=== PATIENT | female | born 1980 | race Two or more races ===

== ENCOUNTER 2017-07-10 17:17 | Inpatient (IN) | payer MEDICAID, OTHER ==
[~2017-07-10] VITALS: Ht 165.1 cm; Wt 88.5 kg
--- NOTE | 2017-07-10 16:35 | NUR ---
PLACED PT ON MECHANICAL VENT IN ER PER MD ORDER. PT TRACH W/PORTEX #7. VENT ALARMS SET AND AUDIBLE. SUCTIONED THICK PINK, WITH RED SPECKS, MODERATE AMOUNT OF SECRETIONS. BREATH SOUNDS: BILATERAL COARSE. WILL CONTINUE TO MONITOR PT. Addendum: 07/10/17 at 1814 by DAX KELLEY RT TIME PT WAS PLACED ON MECHANICAL VENT: [phone].
--- NOTE | 2017-07-10 17:30 | NUR ---
BIB EMS for abnormal labs, elevated WBC and NA . PT ON MECH VENT . GTUBE PATENT . ZUÑIGA IN PLACED DRAINING WELL. PLACED ON MONITOR AWAITING MD ORDER
[2017-07-10 17:35] VITALS: BP 103/44
[2017-07-10] MEDS ORDERED: IV NS 0.9% 1,000 ML BAG IV ONE (18:00)
[2017-07-10 18:39] LABS: EOSINOPHILS % (AUTO) 0.1 % (0.0-6.0); HEMATOCRIT 23 % (33-45); HEMOGLOBIN 7.2 g/dL (11.5-14.8); LYMPHOCYTES # (AUTO) 0.9 /CMM (0.8-4.8); LYMPHOCYTES % (AUTO) 3.1 % (20.0-44.0); MEAN CORPUSCULAR HEMOGLOBIN 26 PG (26.0-33.0); MEAN CORPUSCULAR HGB CONC 32 g/dl (31.0-36.0); MEAN CORPUSCULAR VOLUME 80 fL (82-100); MONOCYTES # (AUTO) 0.8 /CMM (0.1-1.30); MONOCYTES % (AUTO) 2.9 % (2.0-12.0); NEUTROPHILS # (AUTO) 26.6 /CMM (1.8-8.9); NEUTROPHILS % (AUTO) 93.9 % (43.0-81.0); PLATELET COUNT (AUTO) 175 /CMM (150-450); WHITE BLOOD COUNT (AUTO) 28.3 K/uL (4.3-11.0)
--- NOTE | 2017-07-10 18:39 | NUR ---
BAR STAFF AT BEDSIDE
[2017-07-10] MEDS ORDERED: ACID1TAB12 GT (18:40)
[2017-07-10] MEDS ORDERED: ASCO500T9 GT (18:40)
[2017-07-10] MEDS ORDERED: NORM10004 IV (18:40)
[2017-07-10] MEDS ORDERED: ATRO2DRO4 BC (18:40)
[2017-07-10] MEDS ORDERED: MAGN400O6 GT (18:40)
[2017-07-10] MEDS ORDERED: IPRA3AMP IH (18:40)
[2017-07-10] MEDS ORDERED: NA P133E RC (18:40)
[2017-07-10] MEDS ORDERED: AMLO2.5T GT (18:40)
[2017-07-10] MEDS ORDERED: ACET-2605 GT (18:40)
[2017-07-10] MEDS ORDERED: GLYC1TAB5 GT (18:40)
[2017-07-10] MEDS ORDERED: ACET-868 GT (18:40)
[2017-07-10] MEDS ORDERED: FAMO20TA8 GT (18:40)
[2017-07-10] MEDS ORDERED: SODI1TAB3 GT (18:40)
[2017-07-10] MEDS ORDERED: CHLO473M5 MM (18:40)
[2017-07-10] MEDS ORDERED: MULT-24 GT (18:40)
[2017-07-10] MEDS ORDERED: AMIN30LI4 GT (18:40)
[2017-07-10] MEDS ORDERED: POLY15DR40 EACHEYE (18:40)
[2017-07-10] MEDS ORDERED: BISA10SU8 RC (18:40)
[2017-07-10] MEDS ORDERED: LACT-96 GT (18:40)
[2017-07-10] MEDS ORDERED: MORP10SO GT (18:40)
[2017-07-10] MEDS ORDERED: METO25TA20 GT (18:40)
[2017-07-10] MEDS ORDERED: WARF3TAB29 GT (18:40)
[2017-07-10] MEDS ORDERED: HYDR-552 GT (18:40)
--- NOTE | 2017-07-10 18:54 | NUR ---
CALLED NURSING SUP. FOR [facility] BED
[2017-07-10] MEDS ORDERED: VANCOMYCIN 1 GM in IV D5W 250 ML IV ONE (19:00)
[2017-07-10] MEDS ORDERED: PIPERACILLIN /TAZOBACTAM 3.375 G in IV D5W 50 ML IV ONE (19:00)
--- NOTE | 2017-07-10 19:12 | NUR ---
REPORT GIVEN TO FELIZ FOR CHRISSY
--- NOTE | 2017-07-10 19:16 | NUR ---
REPORT RECEIVED FROM ADILENE KHAN FOR CHRISSY.
[2017-07-10 19:32] LABS: INR 2.67 (0.87-1.13)
[2017-07-10 19:39] LABS: ALBUMIN 1.9 g/dL (3.4-5.0); BILIRUBIN,DIRECT 0.1 mg/dL (0.0-0.2); BILIRUBIN,TOTAL 0.3 mg/dL (0.2-1.0); CALCIUM, SERUM 8.5 mg/dL (8.5-10.1); CREATININE 0.3 mg/dL (0.6-1.3); POTASSIUM 4.6 mmol/L (3.5-5.1); TOTAL PROTEIN, SERUM 7.1 g/dL (6.4-8.2)
[2017-07-10 19:44] LABS: TROPONIN I 0.023 ng/mL (0.00-0.056)
--- NOTE | 2017-07-10 19:44 | NUR ---
KATEY WEISS APPLIED TO PATIENT.
--- NOTE | 2017-07-10 19:45 | NUR ---
SPOKE WITH MD REGARDING FLUID CHALLENGE FOR SEPSIS, DID NOT ORDER. NO NEW ORDERS RECEIVED.
--- NOTE | 2017-07-10 19:50 | NUR ---
PT TBA [facility] 118-2.
--- NOTE | 2017-07-10 19:56 | NUR ---
REPORT CALLED TO ADILENE MILTON IN [facility] FOR CHRISSY.
[2017-07-10] MEDS ORDERED: FIBERSOURCE HN 1,000 ML BOTTLE GT PRN ×2 (20:00→23:00)
--- NOTE | 2017-07-10 20:24 | NUR ---
PT TRANSPORTED TO [facility]2 VIA STRETCHER ON [facility]URCH HISTORY TEACHER WITH RT AND RN PER ACLS PROTOCOL. VSS.
[2017-07-10 20:25] LABS: BAND % (MANUAL) 8 % (0.0-5.0); LYMPHOCYTES % (MANUAL) 3 % (16-48); MONOCYTES % (MANUAL) 2 % (0-11.0); NEUTROPHILS % (MANUAL) 87 (42-76)
--- NOTE | 2017-07-10 20:25 | NUR ---
[facility] RN NOTES RECEIVED PTS AND REPORT FROM ER NURSE FELIZ, PTS IS 36 Y/O VENT TRACH WITH EYE OPEN NON VERBAL UNDER THE SERVICE OF DR ELAINE COLON WITH ADMITTING DX OF SEPSIS /PNA, PTS ON VENT SETTING OF RATE 18 TV IS 500 FI02 OF 40 % PEP OF 5, WELL TOLERATED BY PTS, SEEN BY DR HENRY AT BEDSIDE WITH ORDERS NOTED AND CARRIED OUT DUE MEDS GIVEN ORDERED INCLUDING ANTIBIOTIC, BODY CHECK DONE ,WITH IV KEPLOCK ON L HAND G#22 INTACT AND PATENT , PTS IS HARDSTICK NEED MIDLINE INSERTION.WILL ENDORSE TO RN DAY SHIFT FOR CONTINUITY OF CARE.GT FEEDING OF FIBERSOURCE AT 50CC/HR WELL TOLERATED BY PTS NO RESIDUAL NOTED ,KATEY WEISS APPLIED D/T TEMP IS 91 UPON ADMISSION , WILL CONTINUE TO MONITOR PTS.
[2017-07-10 20:30] VITALS: BP 107/62
[2017-07-10] MEDS ORDERED: ONDANSETRON HCL/PF 4 MG/2 ML VIAL IVP PRN (20:30)
[2017-07-10] MEDS ORDERED: Z GUARD REMEDY 2 OZ OINT TP PRN (20:30)
[2017-07-10] MEDS: IV NS 0.9% 1,000 ML IV PRN (23:19)
[2017-07-10] MEDS: VANCOMYCIN 1 GM in IV D5W 250 ML IV ONE (23:44)
[2017-07-10] MEDS: FIBERSOURCE HN 1,000 ML BOTTLE GT PRN (23:46)
[2017-07-11] VITALS (12 sets, daily range): BP systolic 89–110; BP diastolic 27–53
[2017-07-11] MEDS ORDERED: DEXT15DR6 EACHEYE (00:01)
[2017-07-11 00:38] LABS: APPEARANCE,URINE CLEAR (CLEAR); BILIRUBIN,URINE NEGATIVE (NEGATIVE); BLOOD, URINE 1+ Ery/uL (NEGATIVE); COLOR,URINE YELLOW (YELLOW); KETONES,URINE NEGATIVE (NEGATIVE); LEUKOCYTE ESTERASE ,URINE 3+ (NEGATIVE); NITRITE, URINE NEGATIVE (NEGATIVE); PROTEIN,URINE NEGATIVE (NEGATIVE); UGLUCOSE NEGATIVE (NEGATIVE); UROBILINOGEN,URINE 0.2 EU/dL (0.2)
[2017-07-11 00:44] LABS: RBC,URINE 0-2 /HPF (0-2)
[2017-07-11 00:45] LABS: BACTERIA,URINE Rare /HPF (None Seen); SQUAMOUS EPITHELIAL CELL,UR Few /HPF (None Seen)
[2017-07-11] MEDS ORDERED: PIPERACILLIN /TAZOBACTAM 2.25 G VIAL IV ONE ×2 (00:55→02:52)
[2017-07-11] MEDS ORDERED: VANCOMYCIN 1 GM VIAL ONE (00:56)
[2017-07-11] MEDS: VANCOMYCIN 1 GM in IV D5W 250 ML IV ONE (02:28)
[2017-07-11] MEDS: PIPERACILLIN /TAZOBACTAM 4.5 G in IV D5W 50 ML IV SCH ×5 (05:01→17:32)
--- NOTE | 2017-07-11 06:47 | NUR ---
[facility] RN NOTES PTS REMAINS ON VENT , NO SIGNIFICANT CHANGE NOTED , WILL ENDORSE TO RN DAY SHIFT FOR CONTINUITY OF CARE V/S STABLE AFEBRILE .
[2017-07-11 08:19] LABS: INR 2.74 (0.87-1.13)
[2017-07-11 08:22] LABS: EOSINOPHILS % (AUTO) 0.1 % (0.0-6.0); LYMPHOCYTES # (AUTO) 0.5 /CMM (0.8-4.8); LYMPHOCYTES % (AUTO) 3.4 % (20.0-44.0); MEAN CORPUSCULAR HEMOGLOBIN 26 PG (26.0-33.0); MEAN CORPUSCULAR HGB CONC 33 g/dl (31.0-36.0); MEAN CORPUSCULAR VOLUME 80 fL (82-100); MONOCYTES # (AUTO) 0.4 /CMM (0.1-1.30); MONOCYTES % (AUTO) 2.8 % (2.0-12.0); NEUTROPHILS # (AUTO) 14.2 /CMM (1.8-8.9); NEUTROPHILS % (AUTO) 93.7 % (43.0-81.0); PLATELET COUNT (AUTO) 142 /CMM (150-450); RDW COEFFICIENT OF VARIATION 17.9 (11.5-15.0); RED BLOOD CELL COUNT(AUTO) 2.37 MIL/uL (4.0-5.2); WHITE BLOOD COUNT (AUTO) 15.1 K/uL (4.3-11.0)
[2017-07-11 08:24] LABS: THYROID STIMULATING HORMONE 6.894 uIU/mL (0.358-3.74)
[2017-07-11 08:25] LABS: CALCIUM, SERUM 8.3 mg/dL (8.5-10.1); CREATININE 0.4 mg/dL (0.6-1.3); MAGNESIUM 1.5 mg/dL (1.8-2.4); PHOSPHORUS 4.3 mg/dL (2.5-4.9); POTASSIUM 4.6 mmol/L (3.5-5.1)
[2017-07-11 08:33] LABS: HEMATOCRIT 19 % (33-45); HEMOGLOBIN 6.2 g/dL (11.5-14.8)
[2017-07-11] MEDS ORDERED: FEE PK DOSING 1 MIN EA MC ONE (08:43)
[2017-07-11] MEDS: ACIDOPHILUS/BULGARICUS 1 EACH TAB.CHEW GT SCH (08:47)
[2017-07-11] MEDS: PANTOPRAZOLE 40 MG VIAL IV SCH (08:47)
[2017-07-11] MEDS ORDERED: ATROPINE SULFATE OPHTH SOLN 15 ML BOTTLE EACHEYE SCH (09:00)
[2017-07-11 09:47] LABS: BAND % (MANUAL) 6 % (0.0-5.0); EOSINOPHILS % (MANUAL) 2 % (0-4); LYMPHOCYTES % (MANUAL) 3 % (16-48); MONOCYTES % (MANUAL) 4 % (0-11.0); NEUTROPHILS % (MANUAL) 85 (42-76)
--- NOTE | 2017-07-11 10:00 | NUR ---
RN NOTE SPOKE WITH EVELIA EARL REGARDING THE LOW H/H, NO S/S OF BLEEDING AND GOT ORDER TO TRANSFUSE 1 UNIT OF BLOOD. WILL ORDER AND CARRY OUT, WILL MONITOR PT CLOSELY.
[2017-07-11] MEDS: Magnesium 1GM/D5W 100ML PREMIX 100 ML IV SCH ×2 (12:10→13:37)
[2017-07-11 14:48] LABS: CREATININE, URINE 43.7 MG/DL (30.0-125.0); URINE SODIUM, RANDOM < 5 mmol/l (40-220)
[2017-07-11] MEDS: VANCOMYCIN 1 GM in IV D5W 250 ML IV SCH (15:59)
[2017-07-11] MEDS: WARFARIN SODIUM 1 MG TABLET PO SCH (17:33)
--- NOTE | 2017-07-11 17:35 | NUR ---
RT NOTE: PATIENT RECEIVED TRACHED ON PB 840 VENT. SETTING PER MD ORDER. ALARMS VERIFIED AND AUDIBLE. SUCTIONED AND LAVAGED MODERATE-LARGE AMOUNT OF THICK WRIGHT SECRETIONS. VENT PLUGGED INTO RED OUTLET. AMBU BAG AT [facility].
--- NOTE | 2017-07-11 18:55 | NUR ---
RT NOTE PATIENT RECEIVED IN STABLE CONDITION ON MECHANICAL VENT. PATIENT IS TOLERATING CURRENT ORDERED VENT SETTINGS. NO SIGNS OF RESPIRATORY DISTRESS NOTED. TRACH TUBE IS PATENT AND SECURE. ALARMS ARE SET AND AUDIBLE. MECHANICAL VENT IS PLUGGED INTO RED OUTLET. AMBU BAG IS AT PATIENT BEDSIDE. Addendum: 07/11/17 at 2013 by DENISE KURTZ RT Amended: Links added.
--- NOTE | 2017-07-11 19:00 | NUR ---
RN NOTE PT HAD 1 UNIT RBCS TRANSFUSED, TOLERATED WELL, NO REACTION NOTED, PER MINING ENGINEER MADY IT IS OKAY TO GIVE DOSE OF COUMADIN IVEN WITH LOW H/H, PT AND INR TODAY MONITORED BEFORE THE 1700 DOSE OF COUMADIN. NO S/S OF BLEEDING NOTED.
[2017-07-11] MEDS: FIBERSOURCE HN 1,000 ML BOTTLE GT PRN (20:14)
[2017-07-11] MEDS: IV NS 0.9% 1,000 ML IV PRN (22:29)
[2017-07-12] VITALS: BP 105/51
[2017-07-12] MEDS: PIPERACILLIN /TAZOBACTAM 4.5 G in IV D5W 50 ML IV SCH ×5 (00:22→23:42)
[2017-07-12] MEDS: VANCOMYCIN 1 GM in IV D5W 250 ML IV SCH ×2 (03:16→14:14)
[2017-07-12 04:00] VITALS: BP 105/62
--- NOTE | 2017-07-12 06:50 | NUR ---
RN CLOSING NOTES, PATIENT IN BED OBTUNDED UNABLE TO LET NEEDS KNOW, ON VENT SETTINGS TOLERATED WELL, NO SOB/ACUTE DISTRESS NOTED, INGRID MIDLINE INTACT AND PATENT AND IVF RUNNING WELL AND TOLERATED WELL, PIV LINE IN RIGHT HAND INTACT AND PATENT, GTF RUINING WELL AND TOLERATED WELL, NO RESIDUAL AT THIS TIME, GENERAL EDEMATOUS, F/C DRAINING YELLOW URINE, PATENCY INTACT, NO HEMATURIA NOTED AT THIS TIME, BED LOCKED AND LOWETS POSITION, KEPT DRY AND REACH AND REPOSITION PROVIDED PER PROTOCOL, CALL LIGHT W/ REACH, WILL ENDORSE CONTINUITY OF CARE TO ONCOMING NURSE.
[2017-07-12 07:00] LABS: INR 2.2 (0.87-1.13)
[2017-07-12 07:26] LABS: CALCIUM, SERUM 8.4 mg/dL (8.5-10.1); CREATININE 0.5 mg/dL (0.6-1.3); POTASSIUM 4.1 mmol/L (3.5-5.1)
[2017-07-12 08:00] VITALS: BP 107/46
--- NOTE | 2017-07-12 08:00 | NUR ---
[facility] RN NOTES RESIDENT RECEIVED RESTING COMFORTABLY IN BED. PORTEX 7 TRACH TO VENT SETTING ORDERED, NO SIGNS AND SYMPTOMS OF RESPIRATORY DISTRESS, NON VERBAL, OPENS EYES. TELEMETRY READS ST HR 106, NO SIGNS OF PAIN OR DISCOMFORT, G TUBE FEEDING FIBERSOURCE AT 50 CC/HR ONGOING, TOLERATING WELL. 0 RESIDUAL, INGRID MIDLINE AND G22 LEFT HAND PERIPHERAL LINE RECEIVING INTERMITTENT ANTIBIOTICS AND 09.% NS AT 75CC/HR. BOTH SITES CLEAR, STILL FOR WOUND CONSULT. SKIN IS DRY, GENERALIZED EDEMA, BEDBOUND. CURRENTLY HAS BEAR HUGGER BLANKET ON SET AT LOW TEMPERATURE. HOB UP, SAFETY MEASURES IN PLACE, SR X 2 UP, CALL LIGHT WITHIN REACH. WILL CONTINUE TO MONITOR.
[2017-07-12] MEDS: ACIDOPHILUS/BULGARICUS 1 EACH TAB.CHEW GT SCH (08:05)
[2017-07-12] MEDS: PANTOPRAZOLE 40 MG VIAL IV SCH (08:05)
--- NOTE | 2017-07-12 09:30 | NUR ---
[facility] NOTES DUE MEDS GIVEN
--- NOTE | 2017-07-12 10:00 | NUR ---
[facility] NOTES REPORT GIVEN TO YANELI HEAD FOR CHRISSY.
[2017-07-12 10:33] LABS: EOSINOPHILS # (AUTO) 0.1 /CMM (0.0-0.7); EOSINOPHILS % (AUTO) 0.8 % (0.0-6.0); HEMATOCRIT 23 % (33-45); HEMOGLOBIN 7.4 g/dL (11.5-14.8); LYMPHOCYTES # (AUTO) 0.7 /CMM (0.8-4.8); LYMPHOCYTES % (AUTO) 4.4 % (20.0-44.0); MEAN CORPUSCULAR HEMOGLOBIN 27 PG (26.0-33.0); MEAN CORPUSCULAR HGB CONC 33 g/dl (31.0-36.0); MEAN CORPUSCULAR VOLUME 82 fL (82-100); MONOCYTES # (AUTO) 1.1 /CMM (0.1-1.30); MONOCYTES % (AUTO) 6.7 % (2.0-12.0); NEUTROPHILS % (AUTO) 88.1 % (43.0-81.0); PLATELET COUNT (AUTO) 117 /CMM (150-450); RDW COEFFICIENT OF VARIATION 17.6 (11.5-15.0); RED BLOOD CELL COUNT(AUTO) 2.75 MIL/uL (4.0-5.2); WHITE BLOOD COUNT (AUTO) 15.8 K/uL (4.3-11.0)
[2017-07-12 11:26] LABS: BAND % (MANUAL) 12 % (0.0-5.0); BASOPHILS % (MANUAL) 0 % (0.0-2.0); EOSINOPHILS % (MANUAL) 1 % (0-4); LYMPHOCYTES % (MANUAL) 6 % (16-48); MONOCYTES % (MANUAL) 9 % (0-11.0); NEUTROPHILS % (MANUAL) 22 (42-76)
[2017-07-12 12:00] VITALS: BP 115/47
--- NOTE | 2017-07-12 14:30 | NUR ---
[facility] RN NOTE CALLED PHARMACY UNABLE TO UNSCAN VANCO. TROUGH 23. VANCO NOT GIVEN.
[2017-07-12 16:00] VITALS: BP 134/51
[2017-07-12] MEDS: IV NS 0.9% 1,000 ML IV PRN (16:57)
[2017-07-12] MEDS: FIBERSOURCE HN 1,000 ML BOTTLE GT PRN (16:58)
[2017-07-12] MEDS: WARFARIN SODIUM 1 MG TABLET PO SCH (17:00)
--- NOTE | 2017-07-12 18:57 | NUR ---
RCVD PT ON VENT WITH NOTED SETTINGS. VENT PLUGGED INTO RED OUTLET, VENT ALARM WORKING AND AUDIBLE, AMBU BAG AT BEDSIDE. SUCTIONED MODERATE PALE YELLOW THICK SECRETIONS .WILL CONTINUE TO MONITOR THE PT.
[2017-07-12 20:00] VITALS: BP 114/55
--- NOTE | 2017-07-12 20:00 | NUR ---
[facility] RN NOTE PT IN BED OBTUNDED. ON VENT/TRACH TOLERATING THE SETTINGS WELL. NO DISTRESS OR DISCOMFORT NOTED. NO S/S OF PAIN NOTED. FAMILY AT BED SIDE. ON TELE SINUS TACH HR 109. F/C INTACT AND PATENT DRAINING YELLOWISH COLOR URINE. GTF FIBERSOURCE INFUSING AT 50 ML/HR, 0 ML RESIDUAL NOTED. IVF NS @ 75 ML/HR INFUSING WELL AT LT HAND #22 G, NO S/S OF INFILTRATION NOTED. KEPT HER DRY AND CLEAN. ALL NEEDS ATTENDED. REPOSITION HER FOR SKIN MANAGEMENT. SIDE RAILS UP X 3 AND CALL LIGHT WITHIN REACH. VSS. CONTINUE TO MONITOR HER.
--- NOTE | 2017-07-12 21:17 | NUR ---
EKG ORDER AT 2116 DONE IN ER, ADILENE SANTO NOTIFIED.
[2017-07-13] VITALS (11 sets, daily range): BP systolic 111–125; BP diastolic 56–71
--- NOTE | 2017-07-13 04:24 | NUR ---
[facility] RN NOTE SPUTUM SPECIMEN COLLECTED BY RT AND ALSO SPECIMEN COLLECTED FROM NASAL ASPIRATES BOTH SPECIMEN SENT TO LAB.
[2017-07-13] MEDS: PIPERACILLIN /TAZOBACTAM 4.5 G in IV D5W 50 ML IV SCH ×4 (05:35→23:50)
[2017-07-13 06:37] LABS: EOSINOPHILS % (AUTO) 0.3 % (0.0-6.0); HEMATOCRIT 21 % (33-45); LYMPHOCYTES # (AUTO) 0.9 /CMM (0.8-4.8); LYMPHOCYTES % (AUTO) 5.2 % (20.0-44.0); MEAN CORPUSCULAR HEMOGLOBIN 27 PG (26.0-33.0); MEAN CORPUSCULAR HGB CONC 33 g/dl (31.0-36.0); MEAN CORPUSCULAR VOLUME 83 fL (82-100); MONOCYTES # (AUTO) 1.1 /CMM (0.1-1.30); MONOCYTES % (AUTO) 6.9 % (2.0-12.0); NEUTROPHILS # (AUTO) 14.3 /CMM (1.8-8.9); NEUTROPHILS % (AUTO) 87.6 % (43.0-81.0); PLATELET COUNT (AUTO) 101 /CMM (150-450); RDW COEFFICIENT OF VARIATION 17.1 (11.5-15.0); RED BLOOD CELL COUNT(AUTO) 2.54 MIL/uL (4.0-5.2); WHITE BLOOD COUNT (AUTO) 16.3 K/uL (4.3-11.0)
--- NOTE | 2017-07-13 06:37 | NUR ---
[facility] RN NOTE PT IN BED OBTUNDED. TOLERATING VENT SETTING WELL, SUCTIONED HER FREQUENTLY THIN WHITE SECRETION NOTED. NO DISTRESS OR DISCOMFORT NOTED. NO S/S OF PAIN NOTED. ON TELE SINUS HR 92. REPOSITION HER Q2H, KEPT HER DRY AND CLEAN. GTF INFUSING WELL, 0 ML RESIDUAL NOTED. F/C INTACT AND PATENT DRAINING YELLOWISH COLOR URINE. IN ALL NEEDS ATTENDED. SIDE RAILS UP X 3 AND CALL LIGHT WITHIN REACH. WILL ENDORSE TO DAY SHIFT NURSE FOR CONTINUE TO CARE.
[2017-07-13 06:46] LABS: CALCIUM, SERUM 8.7 mg/dL (8.5-10.1); CREATININE 0.4 mg/dL (0.6-1.3)
--- NOTE | 2017-07-13 07:00 | NUR ---
[facility] RN NOTE LAB CALLED GAVE CRITICAL LAB VALUE HGB 6.9. ENDORSE TO NURSE EMMA TO FOLLOW UP WITH .
[2017-07-13 07:12] LABS: HEMOGLOBIN 6.9 g/dL (11.5-14.8)
--- NOTE | 2017-07-13 08:11 | NUR ---
[facility] RN NOTE PT IN BED ASLEEP, AROUSABLE. NO DISTRESS OR DISCOMFORT NOTED.NO S\S PAIN OR DISCOMFORT. ON TELE SR . REPOSITION HER Q2H, KEPT HER DRY AND CLEAN. GT INTACT AND PATENT INFUSING FEEDING WELL, KEEP HOB ELEVATED AT ALL TIME ,KEEP CLEAN DRY , ALL NEEDS ATTENDED. SIDE RAILS UP X 3 AND CALL LIGHT WITHIN REACH. WITH TRACH TO VENT SETTING ORDERED , AMBU BAG AT HOB AT ALL TIME ,WITH ZUÑIGA CATH TO GRAVITY WIT YELLOW COLOR URINE .LT HAND IV HEPLOCK INTACT ON IVF ORDERED ,ON [employer] MATRES ORDERED , BED IN WEST AND LOCKED POSITION , WILL CONT TO MONITOR CLOSELY
[2017-07-13] MEDS: IV NS 0.9% 1,000 ML IV PRN (08:58)
[2017-07-13] MEDS: PANTOPRAZOLE 40 MG VIAL IV SCH ×2 (08:59→16:15)
[2017-07-13] MEDS: ACIDOPHILUS/BULGARICUS 1 EACH TAB.CHEW GT SCH (08:59)
--- NOTE | 2017-07-13 09:13 | NUR ---
WOUND CARE CONSULT: PT PRESENTS WITH MULTIPLE WOUNDS, PRESENT ON ADMISSION INCLUDING FINGER WOUNDS. PT HAS HX OF RAYNAUDS PER CHART. RECOMMENDATIONS MADE FOR WOUND CARE AND SKIN PROTECTION AND DISCUSSED WITH NURSING STAFF AND N.P. PT ON FIRST STEP MATTRESS. 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 ALL SKIN PROTECTION MEASURES IN PLACE. PT IS IMMOBILE, VENT-DEPENDENT. MD IN AGREEMENT WITH PLAN OF CARE. Addendum: 07/13/17 at 0916 by DANDRE LE Amended: Links added. Addendum: 07/13/17 at 0918 by DANDRE LE SCARRING NOTED TO HEELS AND FEET WITH 2+ PITTING EDEMA.
[2017-07-13 09:45] LABS: INR 2.23 (0.87-1.13)
[2017-07-13] MEDS: LEVOTHYROXINE SODIUM 50 MCG TABLET PO SCH (10:41)
--- NOTE | 2017-07-13 11:02 | NUR ---
[facility] RN NOTE HG 6.9 SPOKE WITH NAE HEADNP STATED THAT WILL CHECK IT OUT
--- NOTE | 2017-07-13 12:43 | NUR ---
[facility] RN NOTE SPOKE WITH NAE RN TIE LAYER STATED THAT HG 6.6 WILL TRANSFUSE 1 UNIT PRBC .ALSO NOTIFIED THAT STOOL FOR OB COLLECTED AND STATED OK TO GIVE COUMADIN, AWARE THAT INR 2.23
--- NOTE | 2017-07-13 14:12 | NUR ---
POSTING MACHINE OPERATOR NOTE PER DR PINEDA OK TO TRANSFER TO TELE ALSO I UNIT PRBC START TO TRANSFUSED ,NO ADVERSE REACTION NOTED, WILL CONT TO MONITOR CLOSELY
[2017-07-13 14:36] LABS: BAND % (MANUAL) 12 % (0.0-5.0); EOSINOPHILS % (MANUAL) 2 % (0-4); LYMPHOCYTES % (MANUAL) 4 % (16-48); MONOCYTES % (MANUAL) 2 % (0-11.0); NEUTROPHILS % (MANUAL) 80 (42-76)
[2017-07-13 15:02] LABS: OCCULT BLOOD STOOL POSITIVE (NEGATIVE)
--- NOTE | 2017-07-13 15:57 | NUR ---
MEDICAL SOCIAL WORKER NOTE TELEPHONE CONSENT FOR EGD SPOKE WITH FATHER MAXIMO RAND Addendum: 07/13/17 at 1644 by EMMA VILLAR RN HOLD TO GIVE VANCO AT THIS TIME ,PATIENT ON BLOOD TRANSFUSION, WILL GIVE AFTER ITS COMPETED
[2017-07-13] MEDS: WARFARIN SODIUM 1 MG TABLET PO SCH (16:16)
[2017-07-13] MEDS: VANCOMYCIN 1 GM in IV D5W 250 ML IV SCH (16:59)
--- NOTE | 2017-07-13 17:07 | NUR ---
TOMB MAKER HELPER NOTE BLOOD TRANSFUSION COMPETED I UNIT PRBC, NO ADVERSE REACTION NOTED, WILL CONT TO MONITOR CLOSELY
--- NOTE | 2017-07-13 17:53 | NUR ---
RT END OF THE SHIFT REPORT, PT. 36 Y OLD FEMALE REMAIN STABLE SINCE REC. 0700 AM. TRACH'D PORTEX # 7 ON MECHANICAL VENT, WITH NOTED SETTINGS. EQUAL CHEST RISE NOTED, TRACH IN GOOD POSITION AND SECURE. HME CHANGED JIMENA VENT WELL T/O DAY B/S RALES BILATERALLY AND SUX'D FOR SMALL AMT OF SECRETIONS. VENT PLUGGED INTO RED OUTLET, AMBU BAG AT THE BEDSIDE. CONTINUE FOR CARE AND MONITORING, REPORT WILL PASS TO PM SHIFT. Addendum: 07/13/17 at 1755 by NICOLASA DESHPANDE RT Amended: Links added.
[2017-07-13] MEDS: FIBERSOURCE HN 1,000 ML BOTTLE GT PRN (18:44)
--- NOTE | 2017-07-13 20:00 | NUR ---
BRIDGES AND BUILDINGS SUPERVISOR NOTE PT IN BED OBTUNDED, EYES OPEN. ON VENT/TRACH TOLERATING THE SETTINGS WELL. NO DISTRESS OR DISCOMFORT NOTED. NO S/S OF PAIN NOTED. IVF NS @ 75 ML/HR INFUSING WELL, KEPT HOB ELEVATED. ON TELE SR HR 87, PT IS BED BOUND, REPOSITION HER FOR SKIN MANAGEMENT, GTF FIBERSOURCE INFUSING AT 50 ML/HR, 0 ML RESIDUAL NOTED. KEPT HER DRY AND CLEAN. ALL NEEDS ATTENDED. VSS. CONTINUE TO MONITOR HER.
--- NOTE | 2017-07-13 23:58 | NUR ---
SEWING MACHINE MECHANIC NOTE LONG BOURGEOIS VISITED THE PT, PT IS INFLUENZA + AND TO BE IN DROPLET ISOLATION. CHARGE NURSE INFORMED. PT IS TRANSFERED TO ROOM 109.
[2017-07-14] VITALS: BP 117/60
[2017-07-14] MEDS ORDERED: CEFEPIME 1 GM in IV NS 0.9% 50 ML IV SCH ×2
[2017-07-14 04:00] VITALS: BP 116/66
[2017-07-14] MEDS ORDERED: CEFEPIME 1 GM VIAL ONE (04:07)
[2017-07-14] MEDS: IV NS 0.9% 1,000 ML IV PRN (04:09)
[2017-07-14] MEDS: CEFEPIME 1 GM in IV NS 0.9% 50 ML IV SCH ×3 (04:35→21:37)
--- NOTE | 2017-07-14 04:54 | NUR ---
PRIMARY CLASS TEACHER NOTE BED BATH GIVEN. INCONTINENCE CARE GIVEN. ALSO WOUND TX GIVEN ORDERED. STOOL SPECIMEN #2 COLLECTED FOR C DIFF AND LAB INFORMED.
--- NOTE | 2017-07-14 06:52 | NUR ---
CUT OFF SAWYER NOTE PT IN BED OBTUNDED. NO CHANGE IN CONDITION. NO DISTRESS OR DISCOMFORT NOTED. NO S/S OF PAIN NOTED. TOLERATING VENT SETTINGS WELL. F/C INTACT AND PATENT DRAINING YELLOWISH COLOR URINE. IVF INFUSING WELL, NO S/S OF INFILTRAITON NOTED. ON TELE SR. REPOSITION HER Q2H, KEPT HER DRY AND CLEAN. ALL NEEDS ATTENDED. WILL ENDORSE TO DAY SHIFT NURSE FOR CONTINUE TO CARE.
--- NOTE | 2017-07-14 07:26 | NUR ---
RN NOTES RECEIVED PT FROM ROOF FIXER, VENT/TRACH DEPENDENT, OBTUNDED. TOLERATING VENT SETTINGS NO SOB OR DISTRESS. SR ON THE TELE [place] HR 80. ZUÑIGA DRAINING TO GRAVITY, YELLOW IN COLOR. GTF AT 50ML/HR. INGRID MIDLINE INTACT WITH IVF AT 74ML/HR. BED LOCKED AND IN LOWEST POSITION, CALL LIGHT WITHIN REACH, SIDE RAILS UPX3, WILL CONT TO [place].
[2017-07-14 07:38] LABS: EOSINOPHILS % (AUTO) 0.2 % (0.0-6.0); HEMATOCRIT 26 % (33-45); HEMOGLOBIN 8.6 g/dL (11.5-14.8); LYMPHOCYTES # (AUTO) 0.5 /CMM (0.8-4.8); MEAN CORPUSCULAR HEMOGLOBIN 28 PG (26.0-33.0); MEAN CORPUSCULAR HGB CONC 34 g/dl (31.0-36.0); MEAN CORPUSCULAR VOLUME 82 fL (82-100); MONOCYTES # (AUTO) 0.6 /CMM (0.1-1.30); MONOCYTES % (AUTO) 3.9 % (2.0-12.0); NEUTROPHILS # (AUTO) 14.5 /CMM (1.8-8.9); NEUTROPHILS % (AUTO) 92.9 % (43.0-81.0); PLATELET COUNT (AUTO) 102 /CMM (150-450); RDW COEFFICIENT OF VARIATION 16.5 (11.5-15.0); RED BLOOD CELL COUNT(AUTO) 3.12 MIL/uL (4.0-5.2); WHITE BLOOD COUNT (AUTO) 15.6 K/uL (4.3-11.0)
[2017-07-14 08:00] VITALS: BP_SYST 101; BP_SYST 99; BP_DIAS 52; BP_DIAS 60
[2017-07-14] MEDS: PANTOPRAZOLE 40 MG VIAL IV SCH ×2 (08:17→17:24)
[2017-07-14] MEDS: ACIDOPHILUS/BULGARICUS 1 EACH TAB.CHEW GT SCH (08:17)
[2017-07-14] MEDS: LEVOTHYROXINE SODIUM 50 MCG TABLET PO SCH (08:17)
[2017-07-14 08:37] LABS: ALBUMIN 1.7 g/dL (3.4-5.0); CALCIUM, SERUM 8.6 mg/dL (8.5-10.1); CREATININE 0.3 mg/dL (0.6-1.3); MAGNESIUM 1.8 mg/dL (1.8-2.4); PHOSPHORUS 4.5 mg/dL (2.5-4.9); POTASSIUM 3.9 mmol/L (3.5-5.1); TOTAL PROTEIN, SERUM 7.3 g/dL (6.4-8.2)
--- NOTE | 2017-07-14 11:00 | NUR ---
RN NOTES PT TEMP LOW, 94.1 RECTALLY, COOLER SUPERVISOR NAE NOTIFIED, WARMING BLANKET APPLIED.
[2017-07-14 12:00] VITALS: BP 100/53
[2017-07-14] MEDS: OSELTAMIVIR PHOSPHATE 75 MG CAPSULE PO SCH ×2 (12:47→17:24)
[2017-07-14 16:00] VITALS: BP 97/56
[2017-07-14] MEDS: VANCOMYCIN 1 GM in IV D5W 250 ML IV SCH (16:13)
--- NOTE | 2017-07-14 19:21 | NUR ---
PT RECEIVED TRACHED ON VENT WITH NOTED SETTINGS. VENT ALARMS ARE WORKING AND AUDIBLE , AMBU BAG AT BEDSIDE. TRACH IS SECURED AND POTATO SEED CUTTER DONE. VENT IS PLUGGED INTO RED OUTLET. SUCTIONED MODERATE YELLOW THICK SECRETIONS. NO RESPIRATORY DISTRESS NOTED AT THIS TIME, WILL CONTINUE TO MONITOR.
[2017-07-14 20:00] VITALS: BP 102/45
[2017-07-14] MEDS: HYDROCODONE/APAP 5/325MG 1 EACH TABLET PO PRN (23:03)
[2017-07-15] VITALS: BP_SYST 109; BP_SYST 99; BP_DIAS 39; BP_DIAS 47
[2017-07-15 04:00] VITALS: BP 94/46
[2017-07-15] MEDS: CEFEPIME 1 GM in IV NS 0.9% 50 ML IV SCH ×3 (05:35→21:51)
[2017-07-15 06:37] LABS: EOSINOPHILS % (AUTO) 0.1 % (0.0-6.0); HEMATOCRIT 24 % (33-45); HEMOGLOBIN 7.9 g/dL (11.5-14.8); LYMPHOCYTES # (AUTO) 0.9 /CMM (0.8-4.8); LYMPHOCYTES % (AUTO) 5.7 % (20.0-44.0); MEAN CORPUSCULAR HEMOGLOBIN 28 PG (26.0-33.0); MEAN CORPUSCULAR HGB CONC 34 g/dl (31.0-36.0); MEAN CORPUSCULAR VOLUME 82 fL (82-100); MONOCYTES # (AUTO) 1.1 /CMM (0.1-1.30); MONOCYTES % (AUTO) 7.3 % (2.0-12.0); NEUTROPHILS # (AUTO) 13.1 /CMM (1.8-8.9); NEUTROPHILS % (AUTO) 86.9 % (43.0-81.0); PLATELET COUNT (AUTO) 119 /CMM (150-450); RDW COEFFICIENT OF VARIATION 16.7 (11.5-15.0); RED BLOOD CELL COUNT(AUTO) 2.86 MIL/uL (4.0-5.2); WHITE BLOOD COUNT (AUTO) 15.1 K/uL (4.3-11.0)
[2017-07-15 06:45] LABS: INR 2.53 (0.87-1.13)
[2017-07-15 07:14] LABS: CALCIUM, SERUM 8.4 mg/dL (8.5-10.1); CREATININE 0.5 mg/dL (0.6-1.3); POTASSIUM 4.3 mmol/L (3.5-5.1)
--- NOTE | 2017-07-15 07:59 | NUR ---
Lizbet pt received on mechanical vent. Pt trach is secure. Vent is plugged into a red outlet, alarms are set and audible, and BVM is at bedside. Addendum: 07/15/17 at 0954 by JALEN TAI RT Amended: Links added.
[2017-07-15 08:00] VITALS: BP 100/43
[2017-07-15] MEDS: PANTOPRAZOLE 40 MG VIAL IV SCH ×2 (09:28→15:57)
[2017-07-15 12:00] VITALS: BP 104/44
[2017-07-15] MEDS: OSELTAMIVIR PHOSPHATE 75 MG CAPSULE PO SCH ×2 (13:11→15:57)
[2017-07-15] MEDS: LEVOTHYROXINE SODIUM 50 MCG TABLET PO SCH (13:11)
[2017-07-15] MEDS: FIBERSOURCE HN 1,000 ML BOTTLE GT PRN (13:11)
[2017-07-15] MEDS: ACIDOPHILUS/BULGARICUS 1 EACH TAB.CHEW GT SCH (13:11)
[2017-07-15] MEDS: VANCOMYCIN 1 GM in IV D5W 250 ML IV SCH (15:56)
[2017-07-15 16:00] VITALS: BP 104/49
[2017-07-15] MEDS: HYDROCODONE/APAP 5/325MG 1 EACH TABLET PO PRN (16:02)
[2017-07-15 20:00] VITALS: BP 101/42
[2017-07-16] VITALS (7 sets, daily range): BP systolic 109–124; BP diastolic 47–78
--- NOTE | 2017-07-16 03:49 | NUR ---
RT Pt trach remains on [facility] vent on ordered settings. sx prn. no resp distress noted. Addendum: 07/16/17 at 0350 by EDWAR BELTRAN RT Amended: Links added.
[2017-07-16] MEDS: CEFEPIME 1 GM in IV NS 0.9% 50 ML IV SCH ×3 (05:43→23:18)
[2017-07-16 06:30] LABS: CALCIUM, SERUM 8.8 mg/dL (8.5-10.1); CREATININE 0.6 mg/dL (0.6-1.3); POTASSIUM 4.2 mmol/L (3.5-5.1)
[2017-07-16 06:31] LABS: EOSINOPHILS % (AUTO) 0.1 % (0.0-6.0); HEMATOCRIT 24 % (33-45); HEMOGLOBIN 8.1 g/dL (11.5-14.8); LYMPHOCYTES # (AUTO) 0.9 /CMM (0.8-4.8); LYMPHOCYTES % (AUTO) 5.8 % (20.0-44.0); MEAN CORPUSCULAR HEMOGLOBIN 28 PG (26.0-33.0); MEAN CORPUSCULAR HGB CONC 34 g/dl (31.0-36.0); MEAN CORPUSCULAR VOLUME 83 fL (82-100); MONOCYTES # (AUTO) 1.3 /CMM (0.1-1.30); MONOCYTES % (AUTO) 8.4 % (2.0-12.0); NEUTROPHILS # (AUTO) 13.7 /CMM (1.8-8.9); NEUTROPHILS % (AUTO) 85.7 % (43.0-81.0); PLATELET COUNT (AUTO) 149 /CMM (150-450); RDW COEFFICIENT OF VARIATION 16.8 (11.5-15.0)
--- NOTE | 2017-07-16 07:09 | NUR ---
RN NOTE PT REMAINS IN NO ACUTE DISTRESS IN BED. PT DID NOT HAVE ANY SIGNIFICANT CHANGE IN CONDITION DURING SHIFT. PT TOLERATED VENT SETTING WELL. ALL NEEDS MET, ALL ORDERS CARRIED OUT. WILL ENDORSE CARE TO AM RN FOR CONTINUITY OF CARE.
--- NOTE | 2017-07-16 07:30 | NUR ---
RN NOTES RECEIVED PATIENT IN BED, [facility] WITH BREATHING REGULAR, EVEN AND UNLABORED. NO SOB NOTED. NO ACUTE DISTRESS NOTED. AFEBRILE. TELE MONITOR REVEALS ST, FX=375. IV INGRDI MIDLINE IS PATENT AND INTACT. ON GT FEED FIBERSOURCE @50CC/HR. TOLERATES WELL, NO RESIDUAL NOTED. POSITIVE PLACEMENT. HOB ELEVATED. F/C IS PATENT AND INTACT, DRAINING WITH GRAVITY. KEPT CLEAN, DRY AND COMFORTABLE. ALL NEEDS ATTENDED. SAFETY MEASURE OBSERVED. CALL LIGHT WITH IN REACH. WILL CONT TO MONITOR.
[2017-07-16] MEDS: OSELTAMIVIR PHOSPHATE 75 MG CAPSULE PO SCH ×2 (08:34→17:38)
[2017-07-16] MEDS: ACIDOPHILUS/BULGARICUS 1 EACH TAB.CHEW GT SCH (08:34)
[2017-07-16] MEDS: PANTOPRAZOLE 40 MG VIAL IV SCH ×2 (08:34→17:38)
[2017-07-16] MEDS: LEVOTHYROXINE SODIUM 50 MCG TABLET PO SCH (08:34)
[2017-07-16] MEDS: VANCOMYCIN 1 GM in IV D5W 250 ML IV SCH (16:00)
--- NOTE | 2017-07-16 19:29 | NUR ---
RN NOTES PATIENT ENDORSED TO NEXT SHIFT IN STABLE CONDITION FOR CONTINUITY OF CARE. NO SIGNIFICANT CHANGES NOTED. WILL CONT TO MONITOR.
[2017-07-17] VITALS: BP 113/56
[2017-07-17 04:00] VITALS: BP 112/60
[2017-07-17] MEDS: CEFEPIME 1 GM in IV NS 0.9% 50 ML IV SCH ×3 (05:28→20:23)
--- NOTE | 2017-07-17 06:24 | NUR ---
RN NOTE PT REMAINS IN NO ACUTE DISTRESS IN BED. PT DID NOT HAVE ANY SIGNIFICANT CHANGE IN CONDITION DURING SHIFT. ALL NEEDS MET, ALL ORDERS CARRIED OUT. WILL ENDORSE CARE TO AM RN FOR CONTINUITY OF CARE.
[2017-07-17 06:26] LABS: EOSINOPHILS % (AUTO) 0.1 % (0.0-6.0); HEMATOCRIT 24 % (33-45); HEMOGLOBIN 8.1 g/dL (11.5-14.8); LYMPHOCYTES # (AUTO) 0.9 /CMM (0.8-4.8); LYMPHOCYTES % (AUTO) 4.4 % (20.0-44.0); MEAN CORPUSCULAR HEMOGLOBIN 28 PG (26.0-33.0); MEAN CORPUSCULAR HGB CONC 34 g/dl (31.0-36.0); MEAN CORPUSCULAR VOLUME 83 fL (82-100); MONOCYTES % (AUTO) 4.9 % (2.0-12.0); NEUTROPHILS # (AUTO) 19.2 /CMM (1.8-8.9); NEUTROPHILS % (AUTO) 90.6 % (43.0-81.0); PLATELET COUNT (AUTO) 198 /CMM (150-450); RDW COEFFICIENT OF VARIATION 17.4 (11.5-15.0); WHITE BLOOD COUNT (AUTO) 21.1 K/uL (4.3-11.0)
[2017-07-17 06:41] LABS: CALCIUM, SERUM 8.7 mg/dL (8.5-10.1); CREATININE 0.6 mg/dL (0.6-1.3)
--- NOTE | 2017-07-17 07:20 | NUR ---
RT PATIENT REC'D TRACHED ON [facility] VENT WITH SETTINGS SET BY MD JIMENA BYRD. VENT ALARMS CHECKED + AUDIBLE. B/S DIM COARSE. SX'D WITH SMALL AMT PALE SEMITHICK SECRETIONS. AMBU BAG AT HOB Addendum: 07/17/17 at 1629 by SERAFIN HUBBARD RT Amended: Links added.
--- NOTE | 2017-07-17 07:30 | NUR ---
RECEIVED PT. IN BED. NO C/O PAIN,NO S/S OF DISTRESS BREATHING EVEN AND UNLABORED.WILL CONTINUE TO MONITOR FOR CHANGES.SAFETY MEASURES IN PLACE. I.V CDI AND PATENT.
[2017-07-17 08:00] VITALS: BP 112/61
[2017-07-17] MEDS: LEVOTHYROXINE SODIUM 50 MCG TABLET PO SCH (09:16)
[2017-07-17] MEDS: ACIDOPHILUS/BULGARICUS 1 EACH TAB.CHEW GT SCH (09:16)
[2017-07-17] MEDS: OSELTAMIVIR PHOSPHATE 75 MG CAPSULE PO SCH ×2 (09:16→16:19)
[2017-07-17] MEDS: PANTOPRAZOLE 40 MG VIAL IV SCH ×2 (09:17→16:19)
[2017-07-17 12:00] VITALS: BP 112/61
--- NOTE | 2017-07-17 15:35 | NUR ---
[facility].All M.D orders noted and carried out.V.S IN STABLE CONDITION.REPORT GIVEN TO GAL AT REHAB.ALL BELONGINGS GIVEN TO PATIENT.
--- NOTE | 2017-07-17 15:54 | NUR ---
Assumed care of pt. Pt in bed, appears calm and comfortable. On ventilator with AC 18, TV 500 FIO2 40% PEEP 5. Midline cath on INGRID tko infusing. PEG tube in place Fibersource at 50cc/hr, tolerating. generalized edema 2-3+. diaz in place with yellow urine. bed low and locked. call light within reached. will continue to monitor.
[2017-07-17 16:00] VITALS: BP 102/60
[2017-07-17] MEDS: VANCOMYCIN 1 GM in IV D5W 250 ML IV SCH (16:14)
--- NOTE | 2017-07-17 19:30 | NUR ---
RN NOTE RECEIVED PT IN BED, OBTUNDED, CONTINUES TO BE ON VENTILATOR, TOLERATING WELL WITH O2 SAT @100%, UNDER TELE MONITORING WITH SINUS TACHY @ 112 BPM. IN NO ACUTE DISTRESS, COMFORTABLE AT THIS TIME, NOTED WITH NO FACIAL GRIMACING. PLACED CALL LIGHT WITHIN EASY REACH. PLACED BED IN LOW POSITION AND LOCKED IN PLACE. WILL CONTINUE TO MONITOR PT.
[2017-07-17 20:00] VITALS: BP 114/55
[2017-07-17] MEDS: CADEXOMER IODINE 40 GM TUBE TP PRN (20:27)
[2017-07-17] MEDS: HYDROGEL DRESSING 90 GM TUBE TP PRN (20:27)
[2017-07-17] MEDS: FIBERSOURCE HN 1,000 ML BOTTLE GT PRN (20:42)
[2017-07-18] VITALS: BP 123/64
[2017-07-18 04:00] VITALS: BP 107/53
[2017-07-18] MEDS: CEFEPIME 1 GM in IV NS 0.9% 50 ML IV SCH ×3 (04:03→21:11)
--- NOTE | 2017-07-18 06:29 | NUR ---
RN CLOSING NOTE PATIENT IN BED, ASLEEP, COMFORTABLE, NO SIGNS AND SYMPTOMS OF ACUTE DISTRESS, ON VENT WITH GOOD TOLERANCE. PATIENT ON TELE MONITORING SINUS TACHYCARDIA @ 116 BPM. ALL PATIENT'S NEEDS ANTICIPATED AND ATTENDED TO THROUGHOUT THE SHIFT, TURNED AND REPOSITIONED Q2 HOURS, CALL LIGHT PLACED WITHIN EASY REACH, PLACED BED IN LOW POSITION AND LOCKED IN PLACE. WILL ENDORSE TO AM SHIFT NURSE FOR CONTINUITY OF CARE.
[2017-07-18 06:34] LABS: INR 2.42 (0.87-1.13)
[2017-07-18 06:35] LABS: EOSINOPHILS % (AUTO) 0.3 % (0.0-6.0); HEMATOCRIT 22 % (33-45); HEMOGLOBIN 7.5 g/dL (11.5-14.8); LYMPHOCYTES % (AUTO) 5.8 % (20.0-44.0); MEAN CORPUSCULAR HEMOGLOBIN 28 PG (26.0-33.0); MEAN CORPUSCULAR HGB CONC 34 g/dl (31.0-36.0); MEAN CORPUSCULAR VOLUME 83 fL (82-100); MONOCYTES # (AUTO) 1.1 /CMM (0.1-1.30); MONOCYTES % (AUTO) 6.8 % (2.0-12.0); NEUTROPHILS # (AUTO) 14.3 /CMM (1.8-8.9); NEUTROPHILS % (AUTO) 87.1 % (43.0-81.0); PLATELET COUNT (AUTO) 256 /CMM (150-450); RDW COEFFICIENT OF VARIATION 17.2 (11.5-15.0); RED BLOOD CELL COUNT(AUTO) 2.68 MIL/uL (4.0-5.2); WHITE BLOOD COUNT (AUTO) 16.4 K/uL (4.3-11.0)
[2017-07-18 06:44] LABS: CALCIUM, SERUM 8.6 mg/dL (8.5-10.1); CREATININE 0.6 mg/dL (0.6-1.3); POTASSIUM 4.1 mmol/L (3.5-5.1)
--- NOTE | 2017-07-18 07:55 | NUR ---
FARM HAND NOTE PATIENT IN BED AWAKE , COMFORTABLE, NO SIGNS AND SYMPTOMS OF ACUTE DISTRESS, WITH TRACH , ON VENT SETTING WITH GOOD TOLERANCE. AMBU BAG AT HOB PATIENT ON TELE MONITORING SINUS TACHYCARDIA @ 102 BPM. ALL PATIENT'S NEEDS ANTICIPATED AND ATTENDED TURNED AND REPOSITIONED CALL LIGHT PLACED WITHIN EASY REACH, PLACED BED IN LOW POSITION AND LOCKED IN PLACE. WILL CONT TO MONITOR CLOSELY, WITH ZUÑIGA CATH TO GRAVITY WITH YELLOW COLOR URINE , ON G TUBE FEEDING ORDERED KEEP, HOB ELEVATED AT ALL TIME, LT UPPER ARM MID LINE IN PLACE, NO S\S INFECTION NOTED , WILL MONITOR CLOSELY
[2017-07-18 08:00] VITALS: BP 113/56
[2017-07-18] MEDS: PANTOPRAZOLE 40 MG VIAL IV SCH ×2 (09:05→16:11)
[2017-07-18] MEDS: ACIDOPHILUS/BULGARICUS 1 EACH TAB.CHEW GT SCH (09:06)
[2017-07-18] MEDS: LEVOTHYROXINE SODIUM 50 MCG TABLET PO SCH (09:06)
[2017-07-18] MEDS: OSELTAMIVIR PHOSPHATE 75 MG CAPSULE PO SCH ×2 (09:06→16:11)
--- NOTE | 2017-07-18 11:23 | NUR ---
SLOPE TENDER NOTE SPOKE WITH DR MATT NOTIFIED THAT HG 7.5 NO NEW ORDER GIVEN AT THIS TIME
[2017-07-18 12:00] VITALS: BP 121/63
--- NOTE | 2017-07-18 14:00 | NUR ---
ELEMENTARY ELL TEACHER NOTE NAE RN INSURANCE MARKETING SPECIALIST AT BEDSIDE, AWARE PAPI HG TODAY 7.5 NO BLOOD TRANSFUSION ORDERED ,WILL F\U
[2017-07-18] MEDS: VANCOMYCIN 1 GM in IV D5W 250 ML IV SCH (14:05)
[2017-07-18 16:00] VITALS: BP 122/62
--- NOTE | 2017-07-18 18:27 | NUR ---
TECHNOLOGY COACH NOTE ALL NEEDS ATTENDED, NOT IN ACUTE DISTRESS HR 115 Addendum: 07/18/17 at 1907 by EMMA VILLAR RN CONT WITH TRACH TO VENT SETTING ,TRACH SUCTION DONE KEEP CLEAN DRY , WITH G TUBE FEEDING TOLERATED WELL, KEEP HOB ELEVATED AT ALL TIME
--- NOTE | 2017-07-18 19:50 | NUR ---
COMPUTER DRAFTER NOTES, RECEIVED PATIENT IN BED OBTUNDED, UNABLE TO LET NEEDS KNOWN, ON VENT SETTINGS,TOLERATED WELL, NO SOB/ACUTE DISTRESS NOTED AT THIS TIME, ST IN THE TELE MONITOR, GTF INFUSING WELL AND PATIENT TOLERATED WELL, NO RESIDUAL AT THIS TIME, HOB ELEVATED AT ALL TIMES FOR ASPIRATION PRECAUTIONS, SUCTIONING PROVIDED NEEDED FOR REMOVAL OF SECRETIONS, INGRID MIDLINE INTACT AND PATENT, FC DRAINING YELLOW URINE BY GRAVITY,PATENCY INTACT, NOTED DRY AND CLEAN AT THIS TIME, BED LOCKED AND IN LOWEST POSITION, CALL LIGHT W/I REACH, WILL CONTINUE TO MONITOR CLOSELY.
[2017-07-18 20:00] VITALS: BP 120/58
[2017-07-18] MEDS: FIBERSOURCE HN 1,000 ML BOTTLE GT PRN (21:20)
[2017-07-19] VITALS (12 sets, daily range): BP systolic 82–133; BP diastolic 42–64
[2017-07-19] MEDS: CEFEPIME 1 GM in IV NS 0.9% 50 ML IV SCH ×3 (04:57→20:06)
--- NOTE | 2017-07-19 06:40 | NUR ---
RN CLOSING NOTES, PATIENT IN BED, AWAKE ALERT AND ORIENTED, NO S/S OF ANY DISCOMFORT AT THIS TIME, ENDORSE CARE TO ONCOMING SHIFT.
[2017-07-19 06:46] LABS: EOSINOPHILS % (AUTO) 0.3 % (0.0-6.0); HEMATOCRIT 22 % (33-45); HEMOGLOBIN 7.2 g/dL (11.5-14.8); LYMPHOCYTES # (AUTO) 1.1 /CMM (0.8-4.8); LYMPHOCYTES % (AUTO) 8.5 % (20.0-44.0); MEAN CORPUSCULAR HEMOGLOBIN 28 PG (26.0-33.0); MEAN CORPUSCULAR HGB CONC 33 g/dl (31.0-36.0); MEAN CORPUSCULAR VOLUME 84 fL (82-100); MONOCYTES # (AUTO) 1.1 /CMM (0.1-1.30); MONOCYTES % (AUTO) 8.5 % (2.0-12.0); NEUTROPHILS # (AUTO) 10.8 /CMM (1.8-8.9); NEUTROPHILS % (AUTO) 82.7 % (43.0-81.0); PLATELET COUNT (AUTO) 295 /CMM (150-450); RDW COEFFICIENT OF VARIATION 17.8 (11.5-15.0); RED BLOOD CELL COUNT(AUTO) 2.63 MIL/uL (4.0-5.2); WHITE BLOOD COUNT (AUTO) 13.1 K/uL (4.3-11.0)
[2017-07-19 06:48] LABS: CALCIUM, SERUM 8.6 mg/dL (8.5-10.1); CREATININE 0.6 mg/dL (0.6-1.3); POTASSIUM 3.8 mmol/L (3.5-5.1)
[2017-07-19] MEDS: OSELTAMIVIR PHOSPHATE 75 MG CAPSULE PO SCH (09:00)
[2017-07-19] MEDS: PANTOPRAZOLE 40 MG VIAL IV SCH ×2 (10:14→18:02)
[2017-07-19] MEDS: ACIDOPHILUS/BULGARICUS 1 EACH TAB.CHEW GT SCH (10:14)
[2017-07-19] MEDS: LEVOTHYROXINE SODIUM 50 MCG TABLET PO SCH (10:14)
--- NOTE | 2017-07-19 12:03 | NUR ---
RT RECD PT TRACH ON ORDERED VENT SETTING JIMENA WELL. TRACH INTACT AND SECURED. VENT PLUGGED IN RED OUTLET. ALARMS ON AND AUDIBLE. TX GIVEN JIMENA WELL NO ADVERSE REACTION NOTED ATT. SX THICK YELLOW MODERATE SECRETIONS. NO RESP DISTRESS ATT WILL CONTINUE TO MONITOR
[2017-07-19 13:36] LABS: BAND % (MANUAL) 3 % (0.0-5.0); LYMPHOCYTES % (MANUAL) 4 % (16-48); MONOCYTES % (MANUAL) 2 % (0-11.0); NEUTROPHILS % (MANUAL) 91 (42-76)
[2017-07-19 17:42] LABS: INR 2.3 (0.87-1.13)
[2017-07-19] MEDS: WARFARIN SODIUM 1 MG TABLET GT SCH (18:14)
--- NOTE | 2017-07-19 20:30 | NUR ---
FACTORY PROCESS WORKERS NOTES, BLOOD INFUSION IN PROCESS AT THIS TIME, NO S/S OF ANY ADVERSE REACTION NOTED, PATIENT IN VENT SETTINGS, NO ACUTE DISTRESS/SOB NOTED AT THIS TIME, WILL CONTINUE TO MONITOR CLOSELY.
[2017-07-19] MEDS: ACETAMINOPHEN 325 MG TABLET PO PRN (20:52)
--- NOTE | 2017-07-19 22:20 | NUR ---
SASH ASSEMBLER NOTES, CONTINUE BLOOD TRANSFUSION AT THIS TIME, CHECKED VS AND NOITED BLOOD PRESSURE OF 82/42 INFORM LORNA FIERRO, AWAITING FOR NEW ORDERS.
--- NOTE | 2017-07-19 22:30 | NUR ---
FAMILY PRESERVATION CASEWORKER NOTES, RECEIVED REPLY FROM LORNA FIERRO NP TO CONTINUE MONITOR PATIENT AND INFORM HER IS THE SYSTOLIC BLOOD PRESSURE IS SUSTAINED IN THE 80S, WILL CONTINUE TO MONITOR CLOSELY.
[2017-07-20] VITALS: BP_SYST 114; BP_SYST 96; BP_DIAS 58; BP_DIAS 62
--- NOTE | 2017-07-20 00:15 | NUR ---
FREELANCE COURT REPORTER NOTES, TRANSFUSION DONE AT THIS TIME, PATIENT REMAINED STABLE NO ADVERSE SIDE EFFECTS NOTED, WILL CONTINUE TO MONITOR CLOSELY.
[2017-07-20 04:00] VITALS: BP 118/57
[2017-07-20] MEDS: FIBERSOURCE HN 1,000 ML BOTTLE GT PRN (04:42)
[2017-07-20] MEDS: CEFEPIME 1 GM in IV NS 0.9% 50 ML IV SCH ×3 (04:42→20:56)
--- NOTE | 2017-07-20 06:10 | NUR ---
MEDIA ANALYST CLOSING NOTES, PATIENT IN BED, IN VENT SETTINGS, TOLERATED WELL, NO SOB/ACUTE DISTRESS NOTED AT THIS TIME, INGRID MIDLINE INTACT AND PATENT, F/ DRAINING YELLOW URINE BY GRAVITY, DRY AND CLEAN, REPOSITION PROVIDED PER PROTOCOL, SUCTIONING PROVIDED NEEDED FOR REMOVAL OF SECRETIONS, ALL NEEDS ATTENDED, BED LOCKED AND IN LOWEST POSITION, CALL LIGHT W/I REACH, WILL ENDORSE CONTINUITY OF CARE TO ONCOMING NURSE.
[2017-07-20 06:43] LABS: BASOPHILS % (AUTO) 0.1 % (0.0-2.0); CALCIUM, SERUM 8.5 mg/dL (8.5-10.1); CREATININE 0.6 mg/dL (0.6-1.3); EOSINOPHILS % (AUTO) 0.2 % (0.0-6.0); HEMATOCRIT 25 % (33-45); HEMOGLOBIN 8.1 g/dL (11.5-14.8); LYMPHOCYTES % (AUTO) 5.4 % (20.0-44.0); MEAN CORPUSCULAR HEMOGLOBIN 28 PG (26.0-33.0); MEAN CORPUSCULAR HGB CONC 33 g/dl (31.0-36.0); MEAN CORPUSCULAR VOLUME 85 fL (82-100); MONOCYTES # (AUTO) 1.1 /CMM (0.1-1.30); MONOCYTES % (AUTO) 6.2 % (2.0-12.0); NEUTROPHILS # (AUTO) 16.3 /CMM (1.8-8.9); NEUTROPHILS % (AUTO) 88.1 % (43.0-81.0); PLATELET COUNT (AUTO) 366 /CMM (150-450); RED BLOOD CELL COUNT(AUTO) 2.89 MIL/uL (4.0-5.2); WHITE BLOOD COUNT (AUTO) 18.5 K/uL (4.3-11.0)
[2017-07-20 08:00] VITALS: BP 123/64
--- NOTE | 2017-07-20 08:00 | NUR ---
SMALL EQUIPMENT OPERATOR NOTE PATIENT IN IN BED BOTH EYESOPEN , UNABLE TO FOLLOW ANY COMMAND , WITH TRACH TO VENT SETTING ORDERED AMBU BAG AT HOB AT ALL TIME, WITH F, ON TELE MONITOR SR HR 118 NAE RN BLENDING PLANT OPERATOR AWARE ZUÑIGA CATH TO GRAVITY WITH YELLOW COLOR URINE , ON G TUBE FEEDING ORDERED , KEEP HOB ELEVATED AT ALL TIME , NO RESIDUAL NOTED, LT UPPER ARM MID LININ PLACE NO S\S INFECTION NOTED, WILL CONT TO MONITOR CLOSELY
[2017-07-20 08:07] LABS: INR 2.49 (0.85-1.15)
[2017-07-20] MEDS: ACETAMINOPHEN 325 MG TABLET PO PRN (09:30)
[2017-07-20] MEDS: PANTOPRAZOLE 40 MG VIAL IV SCH ×2 (09:30→16:21)
[2017-07-20] MEDS: ACIDOPHILUS/BULGARICUS 1 EACH TAB.CHEW GT SCH (09:30)
[2017-07-20] MEDS: LEVOTHYROXINE SODIUM 50 MCG TABLET PO SCH (09:31)
[2017-07-20 12:00] VITALS: BP 103/50
--- NOTE | 2017-07-20 12:00 | NUR ---
SALES TRAINEE NOTE SEEN BY RT BANUELOS SUCTION DONE .KEEP CLEAN DRY
[2017-07-20] MEDS: HYDROCODONE/APAP 5/325MG 1 EACH TABLET GT PRN ×2 (13:47→19:55)
--- NOTE | 2017-07-20 15:00 | NUR ---
EXCHANGE ADMINISTRATOR NOTE PER NAE RN QUALITY ASSURANCE PRACTICE MANAGER OK TO DISCHARGE TO [facility]. WILL GIVE REPORT LATTER ON
[2017-07-20 16:00] VITALS: BP 114/69
--- NOTE | 2017-07-20 16:00 | NUR ---
VICTIM WITNESS ADMINISTRATOR NOTE ABDOMINAL US DONE ORDERED ,KEEP CLEAN DRY
[2017-07-20] MEDS: WARFARIN SODIUM 1 MG TABLET GT SCH (16:23)
[2017-07-20 16:59] LABS: ALBUMIN 1.8 g/dL (3.4-5.0); BILIRUBIN,DIRECT 0.1 mg/dL (0.0-0.2); BILIRUBIN,TOTAL 0.8 mg/dL (0.2-1.0); TOTAL PROTEIN, SERUM 7.8 g/dL (6.4-8.2)
--- NOTE | 2017-07-20 17:48 | NUR ---
TURBINE TECHNICIAN NOTE UNABLE TO PET WALKER REPORT TO [facility], STATED THAT PATIENT IS NOT EXCEPTING AT THIS TIME , CALLED [facility] SCHEDULER WILL F\U ,CHARGE NURSE AWARE
--- NOTE | 2017-07-20 18:46 | NUR ---
tle rn note unable to give e report again to [facility] , spoke with [facility] and dania chirinos stated that not excepting and refusing to take patient today , rn case manager radha and ilan subramanian , will transfer tomorrow
--- NOTE | 2017-07-20 18:57 | NUR ---
HAND DRAWER IN NOTE CALLED TO FATHER VERONICA MARSH NOTIFIED THAT PATIENT DISCHARGED FROM HOSPITAL BUT FACILITY CANT EXCEPT HER , MOST LIKELY WILL BE TRANSFER TOMORROW
[2017-07-20 20:00] VITALS: BP 112/63
[2017-07-21] VITALS: BP 108/66
[2017-07-21] MEDS: HYDROCODONE/APAP 5/325MG 1 EACH TABLET GT PRN ×3 (00:33→09:11)
[2017-07-21 04:00] VITALS: BP 113/53
[2017-07-21] MEDS: CEFEPIME 1 GM in IV NS 0.9% 50 ML IV SCH ×2 (04:29→12:28)
[2017-07-21] MEDS: FIBERSOURCE HN 1,000 ML BOTTLE GT PRN (04:44)
[2017-07-21 06:29] LABS: INR 2.68 (0.87-1.13)
[2017-07-21 06:43] LABS: CALCIUM, SERUM 8.9 mg/dL (8.5-10.1); CREATININE 0.6 mg/dL (0.6-1.3)
--- NOTE | 2017-07-21 07:10 | NUR ---
RN INITIAL NOTES: REC'D PT ON BED, NOT IN ANY DISTRESS, OBTUNDED. ON MV VIA TRACH, SATING AT 100%. ON TELEMONITOR, SR/ST. SMALL INGRID MIDLINE, SL, PATENT & INTACT W/ NO S/SX OF INFECTION/INFILTRATION NOTED. HAS GT, ON CONTINUOUS TUBE FEEDING OF FIBERSOURCE X 50 CC/HR INFUSING WELL, NO RESIDUAL NOTED UPON CHECKING. HAS FC PATENT & INTACT DRAINING TO ADEQUATE URINE OUTPUT. PROVIDED COMFORT & SAFETY MEASURES. BED KEPT LOW & IN LOCKED POS. CALL LIGHT PLACED W/IN REACH. WILL CONTINUE TO MONITOR & ATTEND PT NEEDS.
[2017-07-21 08:00] VITALS: BP 113/62
[2017-07-21] MEDS: ACIDOPHILUS/BULGARICUS 1 EACH TAB.CHEW GT SCH (08:21)
[2017-07-21] MEDS: LEVOTHYROXINE SODIUM 50 MCG TABLET PO SCH (08:21)
[2017-07-21] MEDS: PANTOPRAZOLE 40 MG VIAL IV SCH (08:21)
[2017-07-21] MEDS: HYDROGEL DRESSING 90 GM TUBE TP PRN (08:25)
[2017-07-21] MEDS: CADEXOMER IODINE 40 GM TUBE TP PRN (08:26)
[2017-07-21 12:00] VITALS: BP 114/65
--- NOTE | 2017-07-21 12:50 | NUR ---
COREMAKING MACHINE SETTER NOTES: PT DC'D TO [facility] ORDERED. REPORT GIVEN TO ADILENE CASTELLON. TRACH AND GT KEPT PATENT & INTACT. INGRID BOSWELL, SL, KEPT PATENT & INTACT W/ NO S/SX OF INFECTION/INFILTRATION. WOUND CARE DONE. DC DOCUMENTS PROVIDED TO THE EMT & RT. PT LEFT FACILITY IN STABLE CONDITION VIA GURNEY. ALL BELONGINGS SENT W/ PT. NO CONCERNS IDENTIFIED UPON DC.
== END 2017-07-21 12:57 | DRG 130 ==
LOC: ER 17:20 → TELE-TD 20:01 → TELE1 07-13 14:05
DX: J95.851 Ventilator associated pneumonia (principal); A41.9 Sepsis, unspecified organism; G93.40 Encephalopathy, unspecified; E43 Unspecified severe protein-calorie malnutrition; G93.1 Anoxic brain damage, not elsewhere classified; J15.6 Pneumonia due to other Gram-negative bacteria; J10.08 Influenza due to other identified influenza virus with other specified pneumonia; Z99.11 Dependence on respirator [ventilator] status; J96.11 Chronic respiratory failure with hypoxia; N17.9 Acute kidney failure, unspecified; Z93.0 Tracheostomy status; T68.XXXA Hypothermia, initial encounter; E86.0 Dehydration; R53.2 Functional quadriplegia; Z93.1 Gastrostomy status; D69.6 Thrombocytopenia, unspecified; E03.9 Hypothyroidism, unspecified; D68.59 Other primary thrombophilia; D62 Acute posthemorrhagic anemia; E87.1 Hypo-osmolality and hyponatremia; N39.0 Urinary tract infection, site not specified; R13.10 Dysphagia, unspecified; Z66 Do not resuscitate; Z86.718 Personal history of other venous thrombosis and embolism; Z87.820 Personal history of traumatic brain injury; E88.09 Other disorders of plasma-protein metabolism, not elsewhere classified; Z68.32 Body mass index [BMI] 32.0-32.9, adult; I73.01 Raynaud's syndrome with gangrene; Z79.01 Long term (current) use of anticoagulants; E86.9 Volume depletion, unspecified; Z86.74 Personal history of sudden cardiac arrest; B96.5 Pseudomonas (aeruginosa) (mallei) (pseudomallei) as the cause of diseases classified elsewhere; B95.2 Enterococcus as the cause of diseases classified elsewhere; B96.89 Other specified bacterial agents as the cause of diseases classified elsewhere; K92.2 Gastrointestinal hemorrhage, unspecified; L89.159 Pressure ulcer of sacral region, unspecified stage; L97.819 Non-pressure chronic ulcer of other part of right lower leg with unspecified severity; K29.70 Gastritis, unspecified, without bleeding; E66.9 Obesity, unspecified; Y83.3 Surgical operation with formation of external stoma as the cause of abnormal reaction of the patient, or of later complication, without mention of misadventure at the time of the procedure; Y82.8 Other medical devices associated with adverse incidents; Y92.129 Unspecified place in nursing home as the place of occurrence of the external cause
CPT/HCPCS: 31720; 36415; 71045-TC; 76700-TC; 80048-TC; 80053-TC; 80061-TC; 80076-TC; 80202-TC; 81000-TC; 82272-TC; 82570-TC; 83605-TC; 83735-TC; 83935-TC; 84100-TC; 84300-TC; 84439-TC; 84443-TC; 84480; 84484-TC; 84703-TC; 85025-TC; 85610-TC; 85730-TC; 86850-TC; 86921-TC; 87040-TC; 87070-TC; 87081-TC; 87086-TC; 87186-TC; 87400; 88305-TC; 88313-TC; 88342; 93970-TC; 94002-TC; 94003-TC; 94640-TC; 94760-TC; 94762-TC; 99082-TC; A4216; A4606; A6248; A6253; A6403; C9113; J0692; J2543; J3370; J3475; J7030; J7050; J7060; P9016-BL; Z7610

== ENCOUNTER 2017-07-27 13:50 | Inpatient (IN) | payer OTHER ==
[~2017-07-27] VITALS: Ht 167.6 cm; Wt 74.8 kg
[~2017-07-27 13:50] MED LIST: ACET-2605 GT; ACET-868 GT; ACID1TAB12 GT; AMIN30LI4 GT; AMLO2.5T GT; ASCO500T9 GT; ATRO2DRO4 BC; BISA10SU8 RC; CHLO473M5 MM; DEXT15DR6 EACHEYE; FAMO20TA8 GT; GLYC1TAB5 GT; HYDR-552 GT; IPRA3AMP IH; LACT-96 GT; MAGN400O6 GT; METO25TA20 GT; MORP10SO GT; MULT-24 GT; NA P133E RC; NORM10004 IV; POLY15DR40 EACHEYE; SODI1TAB3 GT; WARF3TAB29 GT
--- NOTE | 2017-07-27 14:00 | NUR ---
BB PRIVATE EMS FROM SNF FOR LOW H/H-7.1/24.8. PATIENT IS OBTUNDED, VENT/TRACH DEPENDENT. NO SOB NOTED, NAD. PICC LINE INTACT ON INGRID. GTUBE IN PLACE. VITALS STABLE. SAFETY AND COMFORT MEASURES IN PLACE. AWAITING MD ORDERS.
[2017-07-27] MEDS ORDERED: IV NS 0.9% 500 ML BAG IV ONE (15:00)
--- NOTE | 2017-07-27 15:05 | NUR ---
BLOOD DRAWN AND SENT TO LAB VIA PICC LINE.
[2017-07-27 15:10] LABS: BASOPHILS % (AUTO) 0.2 % (0.0-2.0); EOSINOPHILS # (AUTO) 0.1 /CMM (0.0-0.7); EOSINOPHILS % (AUTO) 0.8 % (0.0-6.0); HEMATOCRIT 23 % (33-45); HEMOGLOBIN 7.7 g/dL (11.5-14.8); LYMPHOCYTES # (AUTO) 0.9 /CMM (0.8-4.8); LYMPHOCYTES % (AUTO) 8.2 % (20.0-44.0); MEAN CORPUSCULAR HEMOGLOBIN 28 PG (26.0-33.0); MEAN CORPUSCULAR HGB CONC 33 g/dl (31.0-36.0); MEAN CORPUSCULAR VOLUME 83 fL (82-100); MONOCYTES # (AUTO) 0.6 /CMM (0.1-1.30); MONOCYTES % (AUTO) 5.7 % (2.0-12.0); NEUTROPHILS # (AUTO) 9.1 /CMM (1.8-8.9); NEUTROPHILS % (AUTO) 85.1 % (43.0-81.0); PLATELET COUNT (AUTO) 290 /CMM (150-450); RDW COEFFICIENT OF VARIATION 18.5 (11.5-15.0); RED BLOOD CELL COUNT(AUTO) 2.78 MIL/uL (4.0-5.2); WHITE BLOOD COUNT (AUTO) 10.7 K/uL (4.3-11.0)
--- NOTE | 2017-07-27 15:30 | NUR ---
KATEY WEISS APPLIED PER MD ORDERS.
[2017-07-27 15:41] LABS: INR 6.41 (0.85-1.15)
[2017-07-27 16:12] LABS: CALCIUM, SERUM 8.6 mg/dL (8.5-10.1); CREATININE 0.5 mg/dL (0.6-1.3); POTASSIUM 4.3 mmol/L (3.5-5.1)
--- NOTE | 2017-07-27 16:16 | NUR ---
REPORT GIVEN TO RAFAEL HEAD FOR CHRISSY UPON ADMISSION.
--- NOTE | 2017-07-27 16:42 | NUR ---
PATIENT TRANSPORTED TO 108 VIA ACLS PROTOCOL. RNRAFAEL TO PROVIDE CHRISSY.
--- NOTE | 2017-07-27 16:42 | NUR ---
RT NOTE: LATE ENTRY- PATIENT RECEIVED IN ER FROM TRANSPORT TEAM WITH #7 PORTEX TRACH AND PLACED ON AN LTV VENT. SETTING SET PER MD ORDER. ALARMS SET AND AUDIBLE. SUCTIONED AND LAVAGED LARGE AMOUNT OF THIN WHITE FROTHY SECRETIONS. @1642-PATIENT TRANSPORTED TO ROOM 108 WITH RN(SANDY) WITH NO PROBLEMS. VENT PLUGGED INTO RED OUTLET. ALARMS VERIFIED AND AUDIBLE. AMBU BAG AT [facility].
[2017-07-27 17:00] VITALS: BP 107/55
[2017-07-27] MEDS ORDERED: ACETAMINOPHEN 650 MG/SUPP.RECT RC PRN (17:00)
[2017-07-27] MEDS ORDERED: MAGNESIUM HYDROXIDE 30 ML UDC GT PRN (17:00)
[2017-07-27] MEDS ORDERED: ONDANSETRON HCL/PF 4 MG/2 ML VIAL IVP PRN (17:00)
[2017-07-27] MEDS ORDERED: BISACODYL SUPP (10 MG) 10 MG/SUPP.RECT SUPP.RECT RC PRN (17:00)
[2017-07-27] MEDS: IPRATROPIUM NEB FS 0.5 MG/2.5 ML AMPUL.NEB NEB SCH ×4 (17:00→23:58)
[2017-07-27] MEDS: ALBUTEROL FS 2.5 MG/0.5 ML VIAL.NEB NEB SCH ×4 (17:00→23:58)
[2017-07-27] MEDS ORDERED: NA PHOS,M-B/NA PHOS,DI-BA 1 EA ENEMA RC PRN (17:00)
[2017-07-27] MEDS ORDERED: ATROPINE SULFATE OPHTH SOLN 15 ML BOTTLE SL PRN (17:00)
[2017-07-27] MEDS ORDERED: Z GUARD REMEDY 2 OZ OINT TP PRN (17:00)
[2017-07-27] MEDS ORDERED: HYDROGEL DRESSING 90 GM TUBE TP PRN (18:00)
[2017-07-27] MEDS: METOPROLOL TARTRATE 25 MG TABLET GT SCH (18:00)
[2017-07-27] MEDS: FAMOTIDINE (20 MG) 20 MG TABLET GT SCH (18:29)
[2017-07-27] MEDS: GLYCOPYRROLATE 1 MG TABLET GT SCH (18:29)
--- NOTE | 2017-07-27 18:59 | NUR ---
RN ADMITTING NOTES: 164h REC'D REPORT FROM SULMEAN DELGADO RN. PT ADMITTED TO ROOM 108 SHWETHA STATUS VIA GURNEY ACCOMPANIED BY FULL STACK DEVELOPER, RT & AGRICULTURE SPECIALIST. ROUTINE ASSESSMENT DONE. PT IS OBTUNDED, NOT IN ANY DISTRESS, OPENS EYES SPONTANEOUSLY. ON MV VIA TRACH (PORTEX 7) SETTINGS: AC 18, TV 500, FIO2 40%, PEEP 5, SATING AT 99%. THIN WHITISH SECRETIONS SUCTIONED. PLACED ON TELEMONITOR, SR W/ HR 80 BPM. HAS GT, FLUSHING WELL. HAS FC PATENT & INTACT DRAINING TO ADEQUATE URINE OUTPUT. HAS INGRID MIDLINE, SL, FLUSHING WELL, NO S/SX OF INFECTION/INFILTRATION NOTED. SKIN ASSESSMENT & INITIAL CARE DONE - PHOTOS PLACED IN CHART. KCI MATTRESS PLACED. UNABLE TO GET TEMPERATURE, GALE WEISS REQUESTED. CALLED SNF ([facility]) S/W RN RANGE CONSERVATIONIST & CONFIRMED THAT PT IS DNR STATUS. PT REC'D PNA & FLU VACCINATION ON 02/2017. GALE WEISS REQUESTED & THEY SAID THEY WILL BRING IT HERE. PT KEPT WELL RESTED. NEEDS ATTENDED. BED KEPT LOW & IN LOCKED POS. CALL LIGHT PLACED W/IN REACH. ENDORSED TO PM RN FOR CHRISSY.
[2017-07-27 20:00] VITALS: BP_SYST 100; BP_SYST 105; BP_SYST 128; BP_DIAS 53; BP_DIAS 64; BP_DIAS 84
[2017-07-27] MEDS: CHLORHEXIDINE GLUCONATE 15 ML UDC MM SCH (21:51)
[2017-07-28] VITALS (15 sets, daily range): BP systolic 90–126; BP diastolic 37–74
[2017-07-28] MEDS: FIBERSOURCE HN 1,000 ML BOTTLE GT PRN (00:34)
[2017-07-28] MEDS: HYDROCODONE/APAP 5/325MG 1 EACH TABLET GT PRN ×2 (00:40→06:46)
[2017-07-28] MEDS: ALBUTEROL FS 2.5 MG/0.5 ML VIAL.NEB NEB SCH ×2 (04:12→07:21)
[2017-07-28] MEDS: IPRATROPIUM NEB FS 0.5 MG/2.5 ML AMPUL.NEB NEB SCH ×2 (04:13→07:21)
[2017-07-28] MEDS: METOPROLOL TARTRATE 25 MG TABLET GT SCH ×4 (05:06→17:36)
[2017-07-28 07:01] LABS: BASOPHILS % (AUTO) 0.4 % (0.0-2.0); EOSINOPHILS % (AUTO) 0.2 % (0.0-6.0); HEMATOCRIT 22 % (33-45); HEMOGLOBIN 7.1 g/dL (11.5-14.8); LYMPHOCYTES # (AUTO) 1.1 /CMM (0.8-4.8); MEAN CORPUSCULAR HEMOGLOBIN 27 PG (26.0-33.0); MEAN CORPUSCULAR HGB CONC 33 g/dl (31.0-36.0); MEAN CORPUSCULAR VOLUME 84 fL (82-100); MONOCYTES # (AUTO) 0.9 /CMM (0.1-1.30); MONOCYTES % (AUTO) 11.3 % (2.0-12.0); NEUTROPHILS # (AUTO) 5.7 /CMM (1.8-8.9); NEUTROPHILS % (AUTO) 74.1 % (43.0-81.0); PLATELET COUNT (AUTO) 294 /CMM (150-450); RDW COEFFICIENT OF VARIATION 19.2 (11.5-15.0); RED BLOOD CELL COUNT(AUTO) 2.58 MIL/uL (4.0-5.2); WHITE BLOOD COUNT (AUTO) 7.7 K/uL (4.3-11.0)
[2017-07-28 07:02] LABS: BILIRUBIN,TOTAL 0.3 mg/dL (0.2-1.0); CREATININE 0.6 mg/dL (0.6-1.3); MAGNESIUM 1.7 mg/dL (1.8-2.4); POTASSIUM 4.5 mmol/L (3.5-5.1); TOTAL PROTEIN, SERUM 6.8 g/dL (6.4-8.2)
--- NOTE | 2017-07-28 07:40 | NUR ---
RN NOTE NO RESPIRATORY DISTRESS NOTED, SINUS TACHYCARDIA 120, STAT EKG WAS DONE MD REMEDIOS IS AWARE, ONGOING G-TUBE FEEDING, TOLERATED WELL, ZUÑIGA CATHETER IS INTACT, DRAINS URINE WELL, OBTUNDED, OPEN EYES, ALL SAFETY MEASURES TAKEN, CALL LIGHT WITHIN, ALL BELONGINGS WITHIN REACH, BED IN THE LOWEST POSITION, ENDORSED TO AM RN
[2017-07-28 07:50] LABS: ALBUMIN 1.4 g/dL (3.4-5.0)
--- NOTE | 2017-07-28 08:30 | NUR ---
TACHICARDIA AND LABS ADDRESSED WITH AMBREEN GAMEZ. NEW ORDERS OBTAINED.
[2017-07-28] MEDS ORDERED: PROSTAT (PYXIS) 30 ML UDC GT SCH (09:00)
[2017-07-28] MEDS: AMLODIPINE BESYLATE 2.5 MG TABLET GT SCH (09:00)
[2017-07-28] MEDS ORDERED: IPRATROPIUM NEB FS 0.5 MG/2.5 ML AMPUL.NEB NEB PRN (09:30)
[2017-07-28] MEDS ORDERED: ALBUTEROL FS 2.5 MG/0.5 ML VIAL.NEB NEB PRN (09:30)
[2017-07-28] MEDS: ASCORBIC ACID 500 MG TABLET GT SCH (09:51)
[2017-07-28] MEDS: GLYCOPYRROLATE 1 MG TABLET GT SCH ×2 (09:52→17:38)
[2017-07-28] MEDS: CHLORHEXIDINE GLUCONATE 15 ML UDC MM SCH ×2 (09:52→20:49)
[2017-07-28] MEDS: MULTIVITAMINS,THERAGRAN 1 UDTAB TABLET GT SCH (09:52)
[2017-07-28] MEDS: FAMOTIDINE (20 MG) 20 MG TABLET GT SCH ×2 (09:52→17:36)
--- NOTE | 2017-07-28 10:00 | NUR ---
CONSENT FOR BRBC OBTAINED FROM PT'S MOTHER VIA PHONE.
[2017-07-28] MEDS: PROSOURCE / PROSTAT (PYXIS) 30 ML UDC GT SCH (10:41)
[2017-07-28] MEDS: Magnesium 1GM/D5W 100ML PREMIX 100 ML IV SCH ×2 (11:47→16:21)
--- NOTE | 2017-07-28 15:30 | NUR ---
FIRST UNIT PRBC COMPLETED. NO REACTION NO FLUID VOL OVERLOAD. VSS. LAB STATES THEY DO NOT HAVE ORDER FOR SECOND UNIT. NEW ORDER PLACED IN THE curated.by.
--- NOTE | 2017-07-28 16:25 | NUR ---
RECEIVED PT TRACH ON VENT, WITH NOTED SETTINGS. PATROL SERGEANT DONE AND TRACH IS SECURE. VENT ALARMS CHECKED AND AUDIBLE. VENT PLUGGED IN RED OUTLET. AMBU BAG NOTED AT HOB. SX WITH MOD SADEK WRIGHT SECRETIONS. NO RESP DISTRESS NOTED AT THIS TIME. Addendum: 07/28/17 at 1626 by ARCHIE KUMAR RT Amended: Links added.
--- NOTE | 2017-07-28 17:00 | NUR ---
FULL BED AND BATH, SKIN CARE ORDERED.
--- NOTE | 2017-07-28 20:00 | NUR ---
SHWETHA RN INITIAL NOTE PT RECEIVED IN BED WITH OPEN EYES. ON MECH VENT WITH SETTING WELL TOLERATED AND SATURATING WELL. TELE- SINUS TACH 106. IV INGRID MIDLINE CLEAN, DRY AND FLUSHING WELL. GTUBE FEEDING WELL TOLERATED WITHOUT RESIDUALS NOTED. HOB ELEVATED AND ON ASPIRATION PRECAUTIONS. ZUÑIGA CATHETER IN PLACE AND DRAINING BY GRAVITY. WILL CONTINUE TO MONITOR.
[2017-07-29] VITALS: BP 122/75
[2017-07-29] MEDS: METOPROLOL TARTRATE 25 MG TABLET GT SCH ×5 (00:21→23:55)
[2017-07-29 04:00] VITALS: BP 111/53
[2017-07-29] MEDS: FIBERSOURCE HN 1,000 ML BOTTLE GT PRN (05:13)
[2017-07-29 06:27] LABS: CALCIUM, SERUM 8.6 mg/dL (8.5-10.1); CREATININE 0.6 mg/dL (0.6-1.3); MAGNESIUM 2.6 mg/dL (1.8-2.4); POTASSIUM 4.4 mmol/L (3.5-5.1)
[2017-07-29 06:35] LABS: BASOPHILS % (AUTO) 0.1 % (0.0-2.0); EOSINOPHILS % (AUTO) 0.1 % (0.0-6.0); HEMATOCRIT 31 % (33-45); HEMOGLOBIN 10.5 g/dL (11.5-14.8); LYMPHOCYTES # (AUTO) 0.9 /CMM (0.8-4.8); LYMPHOCYTES % (AUTO) 8.6 % (20.0-44.0); MEAN CORPUSCULAR HEMOGLOBIN 28 PG (26.0-33.0); MEAN CORPUSCULAR HGB CONC 33 g/dl (31.0-36.0); MEAN CORPUSCULAR VOLUME 84 fL (82-100); MONOCYTES % (AUTO) 9.7 % (2.0-12.0); NEUTROPHILS # (AUTO) 8.4 /CMM (1.8-8.9); NEUTROPHILS % (AUTO) 81.5 % (43.0-81.0); PLATELET COUNT (AUTO) 315 /CMM (150-450); RDW COEFFICIENT OF VARIATION 17.4 (11.5-15.0); RED BLOOD CELL COUNT(AUTO) 3.73 MIL/uL (4.0-5.2); WHITE BLOOD COUNT (AUTO) 10.3 K/uL (4.3-11.0)
[2017-07-29 07:02] LABS: INR 5.33 (0.87-1.13)
--- NOTE | 2017-07-29 07:09 | NUR ---
SHWETHA RN CLOSING NOTE PT REMAINED STABLE DURING SHIFT. NO ACUTE DISTRESS NOTED. ALL NEEDS ATTENDED TO PROMPTLY. KEPT CLEAN AND DRY. REPOSITIONED Q2H. SUCTIONED NEEDED. VENT SETTINGS WELL TOLERATED. HOB ELEVATED. WILL ENDORSE TO NEXT SHIFT FOR CONTINUITY OF CARE.
[2017-07-29 08:00] VITALS: BP 95/47
--- NOTE | 2017-07-29 08:03 | NUR ---
RN NOTES RECEIVED PT FROM PHLEBOTOMY COORDINATOR, CHRONIC VENT/TRACH DEPENDENT, TOLERATING VENT SETTINGS NO SOB OR DISTRESS NOTED. OBTUNDED. ST ON THE TELE [place] HR 110. ZUÑIGA DRAINING TO GRAVITY YELLOW IN COLOR. GTF AT 50ML/HR. INGRID MIDLINE INTACT NO IVF. BED LOCKED AND IN LOWEST POSITION, CALL LIGHT WITHIN REACH, SIDE RAILS UPX3, WILL CONT TO [place].
[2017-07-29] MEDS: PROSOURCE / PROSTAT (PYXIS) 30 ML UDC GT SCH ×4 (08:41→16:17)
[2017-07-29] MEDS: ASCORBIC ACID 500 MG TABLET GT SCH (08:41)
[2017-07-29] MEDS: GLYCOPYRROLATE 1 MG TABLET GT SCH ×2 (08:41→16:17)
[2017-07-29] MEDS: FAMOTIDINE (20 MG) 20 MG TABLET GT SCH ×2 (08:41→16:17)
[2017-07-29] MEDS: MULTIVITAMINS,THERAGRAN 1 UDTAB TABLET GT SCH (08:41)
[2017-07-29] MEDS: CHLORHEXIDINE GLUCONATE 15 ML UDC MM SCH ×2 (08:42→21:34)
[2017-07-29] MEDS: AMLODIPINE BESYLATE 2.5 MG TABLET GT SCH (08:42)
[2017-07-29 12:00] VITALS: BP 115/51
[2017-07-29] MEDS ORDERED: WARF1TAB47 PO (14:50)
[2017-07-29 16:00] VITALS: BP 106/43
--- NOTE | 2017-07-29 19:20 | NUR ---
RN INITIAL NOTE RECEIVED PT IN NO ACUTE DISTRESS IN BED. PT IS OBTUNDED AND ON O2 VIA MECHANICAL VENT. PT ON MECHANICAL VENT VIA TRACH. TRACH SITE IS CLEAN DRY AND INTACT. PT TOLERATING VENT SETTING WELL WITH O2 SAT @ 100%. PT IS NOT SHOWING ANY S/S OF SOB, DIFFICULTY BREATHING OR PAIN AT THIS TIME. PT IS ON TELE WITH ST ON THE MONITOR. PT HAS F/C THAT IS CLEAN DRY INTACT AND PATENT WITH URINE DRAINING. PT HAS GTUBE THAT IS CLEAN DRY INTACT AND PATENT WITH FREE WATER FLUSH. PT HAS INGRID MIDLINE THAT IS CLEAN DRY INTACT AND PATENT WITH SALINE FLUSH. BED IN LOW LOCK POSITION WITH RIALS UP X 2. CALL LIGHT WITHIN REACH AND ALL SAFETY MEASURES ENSURED AND CARRIED OUT. WILL CONTINUE TO MONITOR.
--- NOTE | 2017-07-29 19:20 | NUR ---
RN NOTE PT SCHEDULED TO D/C BACK TO [facility]. AWAITING ARRIVAL OF EMS.
[2017-07-29] MEDS: HYDROCODONE/APAP 5/325MG 1 EACH TABLET GT PRN (19:32)
[2017-07-29 20:00] VITALS: BP 107/40
[2017-07-29] MEDS ORDERED: LORAZEPAM INJ 2 MG/ML VIAL IV PRN (20:30)
[2017-07-29] MEDS ORDERED: MORPHINE SULFATE INJ 4 MG/ML DISP.SYRIN IV PRN (20:30)
--- NOTE | 2017-07-29 22:08 | NUR ---
Received pt on vent support, pt stable no respiratory distress noted,alarms audible, ambu bag at bedside, ventilator is plugged into red outlet.Will continue monitoring per MDS orders. Addendum: 07/29/17 at 2209 by MANOJ PALAFOX RT Amended: Links added.
[2017-07-30] VITALS: BP 117/65
--- NOTE | 2017-07-30 00:56 | NUR ---
RN NOTE PT TOLERATED TRANSFER TO [facility] BY EMS. PT IS IN STABLE CONDITION. PT LEFT HOSPITAL WITH EMT/RT TO [facility]. PT DID NOT HAVE ANY SIGNIFICANT CHANGE IN CONDITION DURING SHIFT.
[2017-07-30] MEDS ORDERED: DAKINS HALF STRENGTH (0.25%) 480 ML BOTTLE TOP SCH (09:00)
== END 2017-07-30 00:50 | DRG 815 ==
LOC: ER 13:51 → TELE1 16:05 → TELE-TD 16:07
PROVIDERS: ADMIT Nurse Practitioner Acute Care; ATTEND Nurse Practitioner Acute Care
PROC: 5A1945Z Respiratory Ventilation, 24-96 Consecutive Hours (ICD-10-PCS; principal; 2017-07-27)
PROC: 30233N1 Transfusion of Nonautologous Red Blood Cells into Peripheral Vein, Percutaneous Approach (ICD-10-PCS; 2017-07-28)
DX: T68.XXXA Hypothermia, initial encounter (principal); G93.1 Anoxic brain damage, not elsewhere classified; Z99.11 Dependence on respirator [ventilator] status; L89.894 Pressure ulcer of other site, stage 4; J96.11 Chronic respiratory failure with hypoxia; R53.2 Functional quadriplegia; D68.9 Coagulation defect, unspecified; Z93.0 Tracheostomy status; D63.8 Anemia in other chronic diseases classified elsewhere; Z93.1 Gastrostomy status; K21.9 Gastro-esophageal reflux disease without esophagitis; K59.00 Constipation, unspecified; M24.573 Contracture, unspecified ankle; N18.9 Chronic kidney disease, unspecified; R13.10 Dysphagia, unspecified; Z86.718 Personal history of other venous thrombosis and embolism; Z79.01 Long term (current) use of anticoagulants
CPT/HCPCS: 31720; 36415; 71045-TC; 80048-TC; 80053-TC; 83735-TC; 84100-TC; 85025-TC; 85730-TC; 86850-TC; 86921-TC; 87040-TC; 87081-TC; 94002-TC; 94003-TC; 94760-TC; 94762-TC; 99082-TC; A4606; A6248; A6403; J2060; J2270; J3475; J7040; J7050; P9016-BL; Z7610

== ENCOUNTER 2017-08-16 15:18 | Inpatient (IN) | payer OTHER ==
[2017-08-16] VITALS (37 sets, daily range): BP systolic 76–117; BP diastolic 39–82
[~2017-08-16] VITALS: Ht 180.3 cm; Wt 92.5 kg
[~2017-08-16 15:18] MED LIST changes: -ACET-2605 GT; -ACET-868 GT; -AMLO2.5T GT; +AMLO2.5T3 GT; -IPRA3AMP IH; +IPRA3AMP23 IH; -MORP10SO GT; -NORM10004 IV; +WARF1TAB47 PO; -WARF3TAB29 GT
--- NOTE | 2017-08-16 15:20 | NUR ---
BBPA FROM [facility]: ABNORMAL LABS, Hgb=6.1. PLACED ON MONITOR. AWAITING MD ORDER
[2017-08-16 16:00] LABS: CREATININE 0.9 mg/dL (0.6-1.3); POTASSIUM 5.2 mmol/L (3.5-5.1)
[2017-08-16] MEDS ORDERED: IV NS 0.9% 1,000 ML BAG IV ONE (16:00)
[2017-08-16 16:04] LABS: INR 2.05 (0.85-1.15)
[2017-08-16 16:11] LABS: ALBUMIN 1.6 g/dL (3.4-5.0); BILIRUBIN,DIRECT 0.3 mg/dL (0.0-0.2); BILIRUBIN,TOTAL 0.5 mg/dL (0.2-1.0); TOTAL PROTEIN, SERUM 7.5 g/dL (6.4-8.2)
[2017-08-16 16:13] LABS: TROPONIN I 0.093 ng/mL (0.00-0.056)
[2017-08-16] MEDS ORDERED: ZINC220T GT (16:15)
[2017-08-16] MEDS ORDERED: WARF1TAB47 PO (16:15)
[2017-08-16] MEDS ORDERED: ACET-868 GT (16:15)
[2017-08-16] MEDS ORDERED: FERR300L GT (16:15)
[2017-08-16] MEDS ORDERED: IPRA0.2S49 IH ×2 (16:15)
[2017-08-16] MEDS ORDERED: LEVA1.2528 IH ×2 (16:15)
[2017-08-16] MEDS ORDERED: DOCU100C36 GT (16:15)
[2017-08-16] MEDS ORDERED: NA P133E RC (16:15)
[2017-08-16 16:19] LABS: BASOPHILS # (AUTO) 0.1 /CMM (0.0-0.2); BASOPHILS % (AUTO) 1.1 % (0.0-2.0); EOSINOPHILS % (AUTO) 0.1 % (0.0-6.0); LYMPHOCYTES # (AUTO) 0.3 /CMM (0.8-4.8); LYMPHOCYTES % (AUTO) 2.7 % (20.0-44.0); MEAN CORPUSCULAR HGB CONC 35 g/dl (31.0-36.0); MEAN CORPUSCULAR VOLUME 82 fL (82-100); MONOCYTES # (AUTO) 0.5 /CMM (0.1-1.30); MONOCYTES % (AUTO) 3.6 % (2.0-12.0); NEUTROPHILS # (AUTO) 11.6 /CMM (1.8-8.9); NEUTROPHILS % (AUTO) 92.5 % (43.0-81.0); PLATELET COUNT (AUTO) 77 /CMM (150-450); RDW COEFFICIENT OF VARIATION 19.1 (11.5-15.0); WHITE BLOOD COUNT (AUTO) 12.5 K/uL (4.3-11.0)
[2017-08-16 16:21] LABS: HEMOGLOBIN 6.3 g/dL (11.5-14.8)
[2017-08-16 16:22] LABS: HEMATOCRIT 18 % (33-45)
--- NOTE | 2017-08-16 16:25 | NUR ---
RECEIVED CALL FOR LAB, PTS HGB 6.3, HCT 18. MADE AWARE
[2017-08-16] MEDS ORDERED: CEFEPIME 1 GM in IV D5W 50 ML IV ONE (16:30)
[2017-08-16] MEDS ORDERED: VANCOMYCIN 1 GM in IV D5W 250 ML IV ONE (16:30)
--- NOTE | 2017-08-16 16:46 | NUR ---
[facility] WAS CALLED AND DR BORGES WAS PAGED
--- NOTE | 2017-08-16 16:54 | NUR ---
Nursing election supervisor called and gave ICU bed rm #[id number] and Ildefonso is the receiving RN. Pt has an admitting diagnosis of Sepsis and GI Bleed. Dr. Tavera is the accepting MD.
--- NOTE | 2017-08-16 17:08 | NUR ---
GAVE REPORT TO ABRAHAN HEAD ICU ROOM [address] BORGES ADMITITNG
[2017-08-16 17:31] LABS: BAND % (MANUAL) 16 % (0.0-5.0); LYMPHOCYTES % (MANUAL) 3 % (16-48); MONOCYTES % (MANUAL) 4 % (0-11.0); NEUTROPHILS % (MANUAL) 76 (42-76)
[2017-08-16 17:32] LABS: EOSINOPHILS % (MANUAL) 1 % (0-4)
[2017-08-16 17:35] LABS: APPEARANCE,URINE Cloudy (CLEAR); BILIRUBIN,URINE Negative (NEGATIVE); BLOOD, URINE Large Ery/uL (NEGATIVE); COLOR,URINE Yellow (YELLOW); KETONES,URINE Trace (NEGATIVE); LEUKOCYTE ESTERASE ,URINE Small (NEGATIVE); NITRITE, URINE Negative (NEGATIVE); PROTEIN,URINE 30 mg/dl (NEGATIVE); UGLUCOSE Negative (NEGATIVE); UROBILINOGEN,URINE 0.2 EU/dL (0.2)
[2017-08-16 17:58] LABS: BACTERIA,URINE Moderate /HPF (None Seen); SQUAMOUS EPITHELIAL CELL,UR Moderate /HPF (None Seen); YEAST,URINE Few /HPF (None Seen)
[2017-08-16 17:59] LABS: URINE AMORPHOUS URATE Moderate /HPF (None Seen)
[2017-08-16] MEDS ORDERED: HYDROCODONE/APAP 5/325MG 1 EACH TABLET GT PRN (18:00)
[2017-08-16] MEDS ORDERED: MAGNESIUM HYDROXIDE 30 ML UDC PO PRN (18:00)
[2017-08-16] MEDS ORDERED: Z GUARD REMEDY 2 OZ OINT TP PRN (18:00)
[2017-08-16] MEDS ORDERED: NA PHOS,M-B/NA PHOS,DI-BA 1 EA ENEMA RC PRN ×2 (18:00)
[2017-08-16] MEDS ORDERED: MAG HYDROX/AL HYDROX/SIMETH 30 ML UDC GT PRN (18:00)
[2017-08-16] MEDS ORDERED: IV NS 0.9% 1,000 ML IV SCH (18:00)
[2017-08-16] MEDS ORDERED: ZOLPIDEM TARTRATE 5 MG TABLET PO PRN (18:00)
[2017-08-16] MEDS ORDERED: MAGNESIUM HYDROXIDE 30 ML UDC GT PRN (18:00)
[2017-08-16] MEDS ORDERED: BISACODYL SUPP (10 MG) 10 MG/SUPP.RECT SUPP.RECT RC PRN (18:00)
[2017-08-16] MEDS ORDERED: ACETAMINOPHEN 325 MG TABLET MC PRN (18:00)
[2017-08-16] MEDS ORDERED: ZOLPIDEM TARTRATE 5 MG TABLET GT PRN (18:24)
--- NOTE | 2017-08-16 18:28 | NUR ---
PT TRANSFERED TO ICU AT 17:30 VIA AMBU BAG. RT AT SIDE. AMBU BAG AT BEDSIDE. VENT PLUGGED INTO RED OUTLET. PT TRACH SECURE AND PATENT. ALARMS ARE ON AND AUDIBLE. Addendum: 08/16/17 at 1830 by ARCHIE KUMAR RT Amended: Links added.
[2017-08-16] MEDS ORDERED: PANTOPRAZOLE 80 MG in IV NS 0.9% 500 ML IV PRN (18:30)
[2017-08-16] MEDS ORDERED: ACETAMINOPHEN 650 MG/20.3 ML UDC PO PRN (18:30)
[2017-08-16] MEDS ORDERED: ONDANSETRON 4 MG TAB.RAPDIS GT PRN (18:30)
[2017-08-16 18:32] LABS: ABG BASE EXCESS -0.2 mmol/L; ABG OXYGEN SATURATION 80.6 % (92.0-98.5); ABG PCO2 53.3 mmHg (35.0-45.0); ABG PH 7.308 (7.350-7.450); ABG PO2 49.7 mmHg (75.0-100.0); AaDO2 174.2 mmHg; COHb 1.1 % (0.5-1.5); MetHb 1.2 % (0.0-1.5); O2Hb 78.7 % (94.0-97.0); PEEP,BG 5 cm H2O; SITE, ABG Right Radial; VT, ABG 500 mL
--- NOTE | 2017-08-16 18:43 | NUR ---
VENT CHANGES PER DR. MATT ORDER Addendum: 08/16/17 at 1844 by ARCHIE KUMAR RT Amended: Links added.
[2017-08-16] MEDS: PROSOURCE / PROSTAT (PYXIS) 30 ML UDC GT SCH (19:00)
[2017-08-16] MEDS: IV NS 0.9% 1,000 ML IV PRN (19:19)
--- NOTE | 2017-08-16 19:20 | NUR ---
LEAD APPLICATION ARCHITECT NOTE 1730: Admitted 36y/o female patient from ER for Sepsis 2/2 PNA. Placed in bed, skin assessment done, noted with multiple wounds, taken pictures, attached to chart, with order of wound consult. Left message to father to get blood transfusion consent. Noted with vomiting, pale red, attached GT to LIS, noted with 350mL residuals. Abdomen firm and tender, made Dr. Tavera aware, with order to keep on LIS. Noted with SBP 80's, obtained order for Levo, will monitor. Douglass cath intact, noted with yellow urine drained to BSD. 1800: S/E by Dr. Miguel, with order of ABG. 1820: Sister at bedside, consented for blood transfusion and PICC line insertion. ABG result done, Dr. Miguel with order for vent changes. Dr. Tavera aware for the labs, K 5.2, but with vomiting. with order of labs in am. 1900: S/E by Ольга TECHNICAL AIDE, SBP 90's at this time, Levo not started yet. Still hypothermic 91.8. Endorsed to Francy for CHRISSY.
[2017-08-16] MEDS ORDERED: FEE PK DOSING 1 MIN EA MC ONE (19:21)
[2017-08-16] MEDS ORDERED: ALBUTEROL FS 2.5 MG/3 ML VIAL.NEB NEB PRN (19:30)
--- NOTE | 2017-08-16 19:30 | NUR ---
OUTSIDE SALES REPRESENTATIVE INITIAL NOTE RECEIVED REPORT FROM ABRAHAN HEAD. PT IN BED, OBTUNDED. VENT TRACH AC 18 TV 550 FIO2 60% PEEP 8. LUNG SOUNDS DIMINISHED. BOWEL SOUNDS PRESENT. GT INTACT, CONNECTED TO LIS DUE TO EMESIS. ZUÑIGA INTACT AND DRAINING URINE. IV PATENT AND INTACT, LEFT UPPER MIDLINE. AWAITING PICC LINE PLACEMENT, CONSENT SIGNED. CORE TEMP 90.3. WARMING BLANKET ON. EDEMA NOTED THROUGHOUT. BLOOD CONSENT SIGNED, WILL ADMINISTER BLOOD. WILL CONTINUE TO CLOSELY MONITOR.
[2017-08-16] MEDS: PANTOPRAZOLE 40 MG VIAL IV SCH (19:32)
[2017-08-16] MEDS: PIPERACILLIN /TAZOBACTAM 3.375 G in IV D5W 50 ML IV SCH ×2 (19:32→23:48)
[2017-08-16] MEDS: POLYVINYL ALCOHOL 15 ML BOTTLE EACHEYE SCH (19:32)
[2017-08-16] MEDS: ALBUTEROL FS 2.5 MG/3 ML VIAL.NEB NEB SCH (20:06)
[2017-08-16] MEDS: IPRATROPIUM NEB FS 0.5 MG/2.5 ML AMPUL.NEB IH SCH (20:06)
[2017-08-16] MEDS: FLUCONAZOLE IN NS 100 MG in PREMIX 1 EA IV SCH ×2 (20:13)
--- NOTE | 2017-08-16 20:56 | NUR ---
PT RECEIVED TRACH ON VENT. NO RESP DISTRESS NOTED. TOLERATING VENT SETTINGS. SX'D FOR MOD AMT OF THICK YELLOW SECRETIONS. VENT ALARMS SET AND AUDIBLE. TRACH [facility]ITAL PHARMACY DIRECTOR. VENT PLUGGED INTO RED OUTLET. WILL CONTINUE TO MONITOR. Addendum: 08/16/17 at 2056 by GEO DAWN RT Amended: Links added.
[2017-08-16] MEDS ORDERED: IPRATROPIUM NEB FS 0.5 MG/2.5 ML AMPUL.NEB IH PRN (21:00)
[2017-08-16] MEDS: DOCUSATE SODIUM LIQ 100 MG/10 ML UDC GT SCH (21:06)
[2017-08-16] MEDS: NOREPINEPHRINE 16 MG in IV D5W 500 ML IV PRN (21:07)
--- NOTE | 2017-08-16 21:15 | NUR ---
DIRECTOR OF TRANSPORTATION DR GAMEZ AT BEDSIDE FOR LINE PLACEMENT.
[2017-08-17] VITALS (103 sets, daily range): BP systolic 32–140; BP diastolic 14–74
[2017-08-17] MEDS: ALBUTEROL FS 2.5 MG/3 ML VIAL.NEB NEB SCH ×4 (00:59→19:43)
[2017-08-17] MEDS: IPRATROPIUM NEB FS 0.5 MG/2.5 ML AMPUL.NEB IH SCH ×4 (00:59→19:43)
[2017-08-17] MEDS: PIPERACILLIN /TAZOBACTAM 3.375 G in IV D5W 50 ML IV SCH ×3 (05:01→17:35)
[2017-08-17 05:15] LABS: EOSINOPHILS % (AUTO) 0.1 % (0.0-6.0); HEMATOCRIT 23 % (33-45); HEMOGLOBIN 7.9 g/dL (11.5-14.8); LYMPHOCYTES # (AUTO) 0.4 /CMM (0.8-4.8); LYMPHOCYTES % (AUTO) 3.4 % (20.0-44.0); MEAN CORPUSCULAR HGB CONC 34 g/dl (31.0-36.0); MEAN CORPUSCULAR VOLUME 84 fL (82-100); MONOCYTES # (AUTO) 0.3 /CMM (0.1-1.30); MONOCYTES % (AUTO) 2.6 % (2.0-12.0); NEUTROPHILS # (AUTO) 11.7 /CMM (1.8-8.9); NEUTROPHILS % (AUTO) 93.9 % (43.0-81.0); PLATELET COUNT (AUTO) 71 /CMM (150-450); RDW COEFFICIENT OF VARIATION 16.9 (11.5-15.0); RED BLOOD CELL COUNT(AUTO) 2.78 MIL/uL (4.0-5.2); WHITE BLOOD COUNT (AUTO) 12.4 K/uL (4.3-11.0)
[2017-08-17 05:32] LABS: CALCIUM, SERUM 8.4 mg/dL (8.5-10.1); CREATININE 0.9 mg/dL (0.6-1.3); MAGNESIUM 2.1 mg/dL (1.8-2.4); PHOSPHORUS 4.7 mg/dL (2.5-4.9); POTASSIUM 5.3 mmol/L (3.5-5.1)
[2017-08-17 05:50] LABS: BAND % (MANUAL) 9 % (0.0-5.0); LYMPHOCYTES % (MANUAL) 4 % (16-48); MONOCYTES % (MANUAL) 3 % (0-11.0); NEUTROPHILS % (MANUAL) 84 (42-76)
[2017-08-17] MEDS ORDERED: VANCOMYCIN 1 GM in IV D5W 250 ML IV SCH (06:00)
--- NOTE | 2017-08-17 07:30 | NUR ---
RN NOTES RECEIVED PT IN BED. OBTUNDED. TRACHE IN PLACE [facility] VENT SETTINGS PRESCRIBED: AC 18 TV 550 FIO2 60% PEEP 8. SUCTIONED FOR AIRWAY CLEARANCE. ST ON SECURITY INSTALLATION TECHNICIAN HR 120BPM AT THIS TIME. S/P R IJ INSERTION, NOTED WITH MILD BLEEDING ON R IJ SITE. S/P 2 UNITS OF PRBC. H/H THIS AM 7.9. PT ON NPO, GT CONNECTED TO LIS, NO OUTPUT NOTED. PT HAD EPISODE OF EMESIS LAST NIGHT. NO N/V NOTED AT THIS TIME. INGRID MIDLINE PATENT, FLUSHED WITH NS. PT ON LEVOPHED@ 8MCG/MIN. FC PATENT DRAINING TO GRAVITY. BARE HUGGER IN PLACE, WILL CONT TO MONITOR
[2017-08-17] MEDS: PANTOPRAZOLE 40 MG VIAL IV SCH ×2 (08:16→20:33)
[2017-08-17] MEDS: IV NS 0.9% 1,000 ML IV PRN ×2 (08:16→20:33)
[2017-08-17] MEDS: FERROUS SULFATE UDC 300 MG/5 ML UDC GT SCH (08:18)
[2017-08-17] MEDS: FAMOTIDINE (20 MG) 20 MG TABLET GT SCH ×2 (08:19→16:50)
[2017-08-17] MEDS: MULTIVITAMINS,THERAGRAN 1 UDTAB TABLET GT SCH (08:19)
[2017-08-17] MEDS: PROSOURCE / PROSTAT (PYXIS) 30 ML UDC GT SCH ×2 (08:19→16:50)
[2017-08-17] MEDS: ZINC SULFATE 220 MG CAPSULE GT SCH (08:19)
[2017-08-17] MEDS: ACIDOPHILUS/BULGARICUS 1 EACH TAB.CHEW GT SCH (08:19)
--- NOTE | 2017-08-17 08:35 | NUR ---
RN NOTES WOUND CARE NURSE AT BEDSIDE, FOR WOUND EVAL. ASSISTED WITH REPOSITIONING. VS MONITORED CLOSELY
--- NOTE | 2017-08-17 08:50 | NUR ---
WOUND CARE CONSULT: PT PRESENTS WITH MULTIPLE WOUNDS AND SKIN ISSUES PRESENT ON ADMISSION INCLUDING BILATERAL 4TH FINGERS, RT LATERAL LOWER LEG WOUND, EXCORIATED AREAS TO BUTTOCKS, SKIN FOLDS AND 4+ PITTING EDEMA WHICH IS GENERALIZED. PT HAS VERY HARD SKIN. PT ON FIRST STEP MATTRESS. LIMITED ASSESSMENT TODAY DUE TO PT'S RISK OF BLEEDING AT NECK PER NURSING STAFF. ALL SKIN PROTECTION AND WOUND RECOMMENDATIONS DISCUSSED WITH NURSING STAFF. WILL SEE PRN. RODNEY IN AGREEMENT WITH PLAN OF CARE. CURRENT ANTONIETTA SCORE IS 10. Addendum: 08/17/17 at 0853 by DANDRE AQUINO WNDNU Amended: Links added.
[2017-08-17] MEDS: HYDROGEL DRESSING 90 GM TUBE TP SCH (08:52)
[2017-08-17] MEDS: HYDROCODONE/APAP 5/325MG 1 EACH TABLET GT SCH ×2 (08:53→16:51)
[2017-08-17] MEDS: POLYVINYL ALCOHOL 15 ML BOTTLE EACHEYE SCH ×2 (08:53→16:51)
[2017-08-17] MEDS ORDERED: HYDROGEL DRESSING 90 GM TUBE TP PRN (09:00)
[2017-08-17 09:06] LABS: ABG BASE EXCESS -0.2 mmol/L; ABG OXYGEN SATURATION 97.5 % (92.0-98.5); ABG PCO2 32.5 mmHg (35.0-45.0); ABG PH 7.471 (7.350-7.450); AaDO2 282.1 mmHg; COHb 0.3 % (0.5-1.5); MetHb 1.2 % (0.0-1.5); PEEP,BG 8 cm H2O; SITE, ABG Right Radial; VT, ABG 550 mL
--- NOTE | 2017-08-17 10:30 | NUR ---
RN NOTES PT WAS SEEN AND EVALUATED BY DR BORGES, UPDATES REPORTED. SP 2 UNITS OF PRBC TRANSFUSED YESTERDAY. PT REMAINS ON NPO STATUS. GT CONNECTED TO LIS. S/P R IJ INSERTION NOTED SITE WITH MODERATE BLEEDING. PT ON LEVOPHED @8MCG/MIN, BP STABLE AT THIS TIME, WILL TITRATE PRN. PER GI ALREADY AWARE REGARDING THE CONSULT. AWAITING FOR ORDERS.
--- NOTE | 2017-08-17 13:40 | NUR ---
RN NOTES ADDISON TIN PLATER AT BEDSIDE, FOR GI CONSULT. PT NPO STATUS,GT CONNECTED TO LIS. LABS DISCUSSED, RECOMENDATION FOR FFP. AWAITING FOR ORDERS.
[2017-08-17 13:47] LABS: IRON, SERUM 183 ug/dl (50-175); TOTAL IRON BINDING CAPACITY 186 ug/dl (250-450)
[2017-08-17 14:47] LABS: EOSINOPHILS % (AUTO) 0.1 % (0.0-6.0); HEMATOCRIT 22 % (33-45); HEMOGLOBIN 7.3 g/dL (11.5-14.8); LYMPHOCYTES # (AUTO) 0.5 /CMM (0.8-4.8); LYMPHOCYTES % (AUTO) 3.3 % (20.0-44.0); MEAN CORPUSCULAR HGB CONC 34 g/dl (31.0-36.0); MEAN CORPUSCULAR VOLUME 83 fL (82-100); MONOCYTES # (AUTO) 0.6 /CMM (0.1-1.30); NEUTROPHILS # (AUTO) 14.1 /CMM (1.8-8.9); NEUTROPHILS % (AUTO) 92.6 % (43.0-81.0); PLATELET COUNT (AUTO) 64 /CMM (150-450); RDW COEFFICIENT OF VARIATION 17.5 (11.5-15.0); WHITE BLOOD COUNT (AUTO) 15.3 K/uL (4.3-11.0)
--- NOTE | 2017-08-17 15:30 | NUR ---
RN NOTES SPOKE WITH ADDISON LEAVE SPECIALIST REGARDING STAT CT ABDOMEN AND PELVIS ORDER, PER ADDISON TRANSPORT TO CT WHEN PT IS STABLE ENOUGH. CN SHASHI AWARE
--- NOTE | 2017-08-17 15:53 | NUR ---
RN NOTES PT RESTING IN BED COMFORTABLY, ON LEVO@6MCG/MIN INFUSING ON R IJ, ONGOING IVF NS@100ML/HR. WOUND CARE PROVIDED, KEPT PT COMFORTABLE. BAREHUGGER IN PLACE FOR HYPOTHERMIA. BED BATH GIVEN. ENDORSED TO ELLIOTT RN FOR CONTINUITY OF CARE.
--- NOTE | 2017-08-17 16:00 | NUR ---
ICU/RN: RECEIVED REPORT FROM RENEE HEAD. WILL TAKE OVER CARE FOR REMAINDER OF SHIFT. PT ON VENT SETTINGS ORDERED BY MD, NO ACUTE DISTRESS NOTED AT THIS TIME. PT SINUS TACHYCARDIA ON TELE. RIGHT IJ CENTRAL LINE CONTINUOUSLY BLEEDING, WILL APPLY PRESSURE DRESSING. PT OBTUNDED, DOES NOT FOLLOW COMMANDS. GTUBE TO LIS, OUTPUT DARK RED. STAT CT ORDER PLACED BY GI, AT THIS TIME PT NOT STABLE TO GO, ON LEVO FOR BP SUPPORT AND CONTINUOUS BLEEDING NOTED. ZULY JAIME GROMMET WORKER NOTIFIED. WILL HOLD TILL MORE STABLE. ALL NEEDS WILL BE ATTENDED TO, SAFETY MEASURES TAKEN, BED IN LOW POSITION, SIDE RAILS UP, CALL LIGHT WITHIN REACH, WILL CONTINUE CARE.
[2017-08-17] MEDS: NYSTATIN TOP POWDER 15 GM BOTTLE TP SCH (16:50)
[2017-08-17] MEDS ORDERED: SODIUM POLYSTYRENE SULFONATE 15 G/60 ML BOTTLE PO ONE (17:00)
[2017-08-17 17:10] LABS: D-DIMER 1.39 mg/L(FEU (0.17-0.50)
--- NOTE | 2017-08-17 17:22 | NUR ---
PT NOT STABLE FOR CT SCAN, RN ARPI WILL CALL WHEN READY.
--- NOTE | 2017-08-17 18:07 | NUR ---
ICU/RN: PREMA TROUGH 21. PHARMACY NOTIFIED, PER PHARMACY, TIMING OF DOSE WILL BE ADJUSTED, NEXT DOSE WILL BE DUE AT 1999.
[2017-08-17] MEDS: NOREPINEPHRINE 16 MG in IV D5W 500 ML IV PRN (18:56)
--- NOTE | 2017-08-17 19:03 | NUR ---
ICU/RN ENDING NOTES,AM REPORT WILL BE ENDORSED TO NIGHT NURSE FOR CONTINUATION OF CARE. PT ON VENT SETTINGS ORDERED BY MD. NO ACUTE DISTRESS NOTED. SINUS TACH ON TELE. PRESSURE DRESSING APPLIED TO RIGHT IJ, BLEEDING STOPPED FOR NOW. ALL NEEDS ATTENDED TO, ON LEVO FOR BP SUPPORT. IV FLUIDS INFUSING ORDERED. ALL NEEDS ATTENDED TO, SAFETY MEASURES TAKEN, PT TURNED AND REPOSITIONED. WILL CONTINUE CARE
[2017-08-17] MEDS ORDERED: VANCOMYCIN 1 GM in IV NS 0.9% 250 ML IV SCH (20:00)
[2017-08-17] MEDS: FLUCONAZOLE IN NS 100 MG in PREMIX 1 EA IV SCH ×2 (20:32)
[2017-08-17] MEDS: DOCUSATE SODIUM LIQ 100 MG/10 ML UDC GT SCH (22:00)
[2017-08-18] VITALS (116 sets, daily range): BP systolic 74–122; BP diastolic 38–84
[2017-08-18] MEDS: ALBUTEROL FS 2.5 MG/3 ML VIAL.NEB NEB SCH ×4 (01:52→20:03)
[2017-08-18] MEDS: IPRATROPIUM NEB FS 0.5 MG/2.5 ML AMPUL.NEB IH SCH ×4 (01:52→20:03)
[2017-08-18] MEDS: NYSTATIN TOP POWDER 15 GM BOTTLE TP SCH ×2 (04:55→16:14)
[2017-08-18 05:06] LABS: CALCIUM, SERUM 8.6 mg/dL (8.5-10.1); CREATININE 0.9 mg/dL (0.6-1.3); POTASSIUM 3.9 mmol/L (3.5-5.1)
[2017-08-18] MEDS: PIPERACILLIN /TAZOBACTAM 3.375 G in IV D5W 50 ML IV SCH ×6 (06:11→23:32)
--- NOTE | 2017-08-18 06:21 | NUR ---
COMPLIANCE COUNSEL PT REMAINED ON FI02 60% AND LEVOPHED FOR BP SUPPORT; ABD CT REMAINS PENDING.
--- NOTE | 2017-08-18 07:43 | NUR ---
RT PT RECEIVED TRACHED ON THE VENT WITH NOTED SETTINGS. PT IS AWAKE BUT DOES NOT FOLLOW COMMANDS. VENT ALARMS ARE SET AND AUDIBLE WITH BVM BY BEDSIDE. MOTORCYCLE DELIVERER CUFF PRESSURE NOTED. VENT IS PLUGGED INTO RED OUTLET. WILL CONTINUE TO MONITOR. Addendum: 08/18/17 at 1738 by RAMIREZ CASTILLO RT Amended: Links added.
--- NOTE | 2017-08-18 08:00 | NUR ---
PT ON LEVOPHED AT 6 MICS WILL TITRATE OFF TOLERATED. NGT TO LOW CONT SUCTION. SMALL AMOUNT OF DARK BROWN DRAINAGE NOTED. WILL CONTINUE TO MONITOR FOR BLEEDING Addendum: 08/18/17 at 1949 by KEYNA KELLEY RN PT HYPOTHERMIC. TEMP 95.8 RECTAL TEMPORAL 96.5 KATEY ROSALES
[2017-08-18] MEDS: FERROUS SULFATE UDC 300 MG/5 ML UDC GT SCH (09:00)
[2017-08-18] MEDS: ACIDOPHILUS/BULGARICUS 1 EACH TAB.CHEW GT SCH (09:00)
[2017-08-18] MEDS: MULTIVITAMINS,THERAGRAN 1 UDTAB TABLET GT SCH (09:00)
[2017-08-18] MEDS: HYDROCODONE/APAP 5/325MG 1 EACH TABLET GT SCH ×2 (09:00→17:00)
[2017-08-18] MEDS: PROSOURCE / PROSTAT (PYXIS) 30 ML UDC GT SCH ×2 (09:00→17:00)
[2017-08-18] MEDS: FAMOTIDINE (20 MG) 20 MG TABLET GT SCH ×2 (09:00→18:27)
[2017-08-18] MEDS: ZINC SULFATE 220 MG CAPSULE GT SCH (09:00)
--- NOTE | 2017-08-18 11:00 | NUR ---
DR BORGES HERE TO SEE PT. YESTERDAY HH 7.07/08 REPORTED. ONE UNIT PRBC ORDERED.
[2017-08-18] MEDS: PANTOPRAZOLE 40 MG VIAL IV SCH ×2 (11:17→21:28)
[2017-08-18] MEDS: HYDROGEL DRESSING 90 GM TUBE TP SCH (11:18)
[2017-08-18] MEDS: IV NS 0.9% 1,000 ML IV PRN (11:24)
[2017-08-18] MEDS: POLYVINYL ALCOHOL 15 ML BOTTLE EACHEYE SCH ×2 (11:25→16:14)
[2017-08-18 12:41] LABS: ABG BASE EXCESS -2.9 mmol/L; ABG OXYGEN SATURATION 93.2 % (92.0-98.5); ABG PCO2 22.4 mmHg (35.0-45.0); ABG PH 7.544 (7.350-7.450); ABG PO2 70.1 mmHg (75.0-100.0); AaDO2 189.3 mmHg; COHb 0.4 % (0.5-1.5); MetHb 0.9 % (0.0-1.5); PEEP,BG 5 cm H2O; SITE, ABG Right Radial; VT, ABG 550 mL
--- NOTE | 2017-08-18 14:00 | NUR ---
TO TO CT ABD/PELV. TOLERATED CT WELL. VSS.
--- NOTE | 2017-08-18 14:40 | NUR ---
PRBC COMPLETED NO SIGNS OF REACTION NO SIGNS OF FLUID VOL OVERLOAD.
--- NOTE | 2017-08-18 15:00 | NUR ---
CT RESULTS REPORTED TO EVELIA JAIME.
--- NOTE | 2017-08-18 16:00 | NUR ---
PT ASSISTED WITH FULL BED/BATH, SKIN CARE ORDERED. ONE LARGE BM GREEN.GT CLAMPED NO DRAINAGE NOTED SINCE 10AM.
[2017-08-18] MEDS ORDERED: NA PHOS,M-B/NA PHOS,DI-BA 1 EA ENEMA RC PRN (18:00)
[2017-08-18] MEDS: NOREPINEPHRINE 16 MG in IV D5W 500 ML IV PRN (18:27)
--- NOTE | 2017-08-18 18:30 | NUR ---
PT BP REMAINS IN 70TH. LEVOPHED INITIATED AT 2MIC/HR.
--- NOTE | 2017-08-18 19:30 | NUR ---
IT WEB DEVELOPMENT CONSULTANT: RECEIVED VENT DEPENDENT TO TRACH PT, OBTUNDED. VENT SETTINGS ORDERED WT 02 SAT 96% AND ABOVE. NO ACUTE DISTRESS, NO EVIDENCE OF DISCOMFORT. ST ON SENIOR CONTROLS TECHNICIAN. CORE TEMP AT 99.5. RIJ TLC RUNNING NS AT 100ML/HR, LEVOPHED AT 4MCG/MIN. INGRID MIDLINE INTACT WT NO COMPLICATIONS NOTED. NO ACTIVE BLEEDING. GT RECEIVED CLAMPED. F/C PATENT AND INTACT DRAINING HENRY COLORED URINE TO GRAVITY. HOB AT 35 DEGREES. SAFETY PRECAUTION NOTED .WILL CONTINUE TO MONITOR.
--- NOTE | 2017-08-18 20:03 | NUR ---
PT RECEIVED TRACHED ON THE VENT WITH NOTED SETTINGS. VENT ALARMS WORKING AND AUDIBLE, AMBU BAG AT BEDSIDE. HOME ADMINISTRATOR CUFF PRESSURE NOTED. VENT IS PLUGGED INTO RED OUTLET. BREATHING TX GIVEN PER MD'S ORDERED. SUCTIONED MODERATE AMOUNT OF YELLOW THICK SECRETIONS WITH TINGED BLOOD. WILL CONTINUE TO MONITOR THE PT.
[2017-08-18] MEDS: FLUCONAZOLE IN NS 100 MG in PREMIX 1 EA IV SCH ×2 (20:22)
[2017-08-18] MEDS: VANCOMYCIN 1 GM in IV NS 0.9% 250 ML IV SCH (20:47)
[2017-08-18] MEDS: DOCUSATE SODIUM LIQ 100 MG/10 ML UDC GT SCH (21:31)
[2017-08-19] VITALS (77 sets, daily range): BP systolic 93–118; BP diastolic 41–85
[2017-08-19] MEDS: ALBUTEROL FS 2.5 MG/3 ML VIAL.NEB NEB SCH ×4 (01:24→20:26)
[2017-08-19] MEDS: IPRATROPIUM NEB FS 0.5 MG/2.5 ML AMPUL.NEB IH SCH ×4 (01:24→20:26)
[2017-08-19] MEDS: IV NS 0.9% 1,000 ML IV PRN ×2 (02:34→13:30)
[2017-08-19] MEDS: NYSTATIN TOP POWDER 15 GM BOTTLE TP SCH ×2 (04:10→16:26)
--- NOTE | 2017-08-19 04:15 | NUR ---
GOURMET COFFEE ATTENDANT: BED BATH GIVEN AND TOLERATED FAIRLY. STILL ON LEVOPHED AT 4MCG/MIN.
[2017-08-19 05:24] LABS: EOSINOPHILS % (AUTO) 0.1 % (0.0-6.0); HEMATOCRIT 24 % (33-45); HEMOGLOBIN 7.9 g/dL (11.5-14.8); LYMPHOCYTES # (AUTO) 0.9 /CMM (0.8-4.8); LYMPHOCYTES % (AUTO) 4.7 % (20.0-44.0); MEAN CORPUSCULAR HGB CONC 33 g/dl (31.0-36.0); MEAN CORPUSCULAR VOLUME 84 fL (82-100); MONOCYTES # (AUTO) 0.7 /CMM (0.1-1.30); MONOCYTES % (AUTO) 3.6 % (2.0-12.0); NEUTROPHILS # (AUTO) 16.5 /CMM (1.8-8.9); NEUTROPHILS % (AUTO) 91.6 % (43.0-81.0); RED BLOOD CELL COUNT(AUTO) 2.82 MIL/uL (4.0-5.2)
--- NOTE | 2017-08-19 05:35 | NUR ---
RETAIL ASSISTANT STORE MANAGER: PLATELETS RESULT AT 46 FROM 64. NOTED PINK-TINGED SECRETIONS UPON TRACHEAL SUCTIONING. PLACED BACK ON LOW INTERMITTENT SUCTION FOR DARK BROWN/GREENISH GASTRIC DRAINAGE. NO CHRISSY. NO ACUTE DISTRESS. NO EVIDENCE OF DISCOMFORT. WILL ENDORSE PLATELET RESULT TO DAY SHIFT NURSE. ANAID CHARGE NURSE MADE AWARE.
[2017-08-19 05:37] LABS: PLATELET COUNT (AUTO) 46 /CMM (150-450)
[2017-08-19 05:41] LABS: CALCIUM, SERUM 8.2 mg/dL (8.5-10.1); POTASSIUM 3.3 mmol/L (3.5-5.1)
[2017-08-19 05:43] LABS: BAND % (MANUAL) 6 % (0.0-5.0); LYMPHOCYTES % (MANUAL) 4 % (16-48); MONOCYTES % (MANUAL) 2 % (0-11.0); NEUTROPHILS % (MANUAL) 88 (42-76)
[2017-08-19] MEDS: PIPERACILLIN /TAZOBACTAM 3.375 G in IV D5W 50 ML IV SCH ×4 (06:02→23:35)
--- NOTE | 2017-08-19 07:30 | NUR ---
AEROSPACE MANAGER- INITIAL NOTE RECEIVED PT FROM PREVIOUS SHIFT. PT OBTUNDED, DOES NOT FOLLOW COMMANDS. VENT/TRACH PATIENT. AIR LEAK NOTED UPON ASSESSMENT. WILL INFORM MD DURING ROUNDS. RESPIRATIONS EVEN AND UNLABORED, NO SOB OR DISTRESS PRESENT. BEDSIDE MONITOR REVEALS SINUS TACHYCARDIA. G-TUBE PRESENT AND CONNECTED TO LOW INTERMITTENT SUCTION, NO OUTPUT NOTED AT THIS TIME. ZUÑIGA CATHETER DRAINING TO GRAVITY. RIJ TLC RUNNING LEVOPHED 4 MCG/MIN AND NS @ 100 ML/HR AND INGRID MIDLINE PRESENT. WILL CONTINUE TO MONITOR.
[2017-08-19] MEDS: FERROUS SULFATE UDC 300 MG/5 ML UDC GT SCH (08:09)
[2017-08-19] MEDS: PROSOURCE / PROSTAT (PYXIS) 30 ML UDC GT SCH ×2 (08:10→16:25)
[2017-08-19] MEDS: ZINC SULFATE 220 MG CAPSULE GT SCH (08:10)
[2017-08-19] MEDS: MULTIVITAMINS,THERAGRAN 1 UDTAB TABLET GT SCH (08:10)
[2017-08-19] MEDS: FAMOTIDINE (20 MG) 20 MG TABLET GT SCH ×2 (08:10→16:26)
[2017-08-19] MEDS: HYDROCODONE/APAP 5/325MG 1 EACH TABLET GT SCH ×2 (08:10→16:26)
[2017-08-19] MEDS: ACIDOPHILUS/BULGARICUS 1 EACH TAB.CHEW GT SCH (08:10)
[2017-08-19] MEDS: POLYVINYL ALCOHOL 15 ML BOTTLE EACHEYE SCH ×2 (08:55→16:27)
[2017-08-19] MEDS: HYDROGEL DRESSING 90 GM TUBE TP SCH (08:55)
--- NOTE | 2017-08-19 09:30 | NUR ---
PROPERTY APPRAISER- DR. MATT AT BEDSIDE. MD AWARE PT HAS AIR LEAK AROUND TRACH. PER MD, CONTACT SARA'S OFFICE TO CHANGE TRACH TO SHILEY 7 PROXIMAL XLT AND INCREASE TIDAL VOLUME BY 100 (RT AWARE). [phone]: CALLED DR. RUIZ'S OFFICE. PER LITHOGRAPHIC PRESS FEEDER, DR. RUIZ NO LONGER SEES PTS IN [facility]. 1010: INFORMED DR. MATT OF INFORMATION ABOVE. PER MD, CONTACT DR. JOSE FOR TRACH CHANGE. 1030: CALLED AND SPOKE TO DR. JOSE. INFORMED PT NEEDS TRACH TO BE CHANGED PER DR. MATT. SHILEY 7 PROXIMAL XLT AT BEDSIDE. WILL CONTINUE TO MONITOR.
[2017-08-19] MEDS: MORPHINE SULFATE INJ 4 MG/ML DISP.SYRIN IV PRN (09:32)
[2017-08-19] MEDS: PANTOPRAZOLE 40 MG VIAL IV SCH ×2 (09:32→20:20)
[2017-08-19] MEDS ORDERED: POTASSIUM CHLORIDE 20 MEQ POWDER PACKET GT ONE (11:00)
--- NOTE | 2017-08-19 11:10 | NUR ---
LAYOUT WORKER- RECEIVED PHONE CALL FROM Chris CHANEY QUEBRACHO TANNER. INFORMED QUEBRACHO TANNER OF THE FOLLOWIN) H&H THIS AM= 7.9/24, 2) DULCOLAX STOOL SOFTENER GIVEN FOR CT RESULT YESTERDAY OF CONSTIPATION, 3) PLATELETS= 46. OBTAINED ORDERS FOR THE FOLLOWIN) OBTAIN CONSENT FOR EGD & COLONOSCOPY, 2) ADMINISTER MAGNESIUM CITRATE VIA G-TUBE, 3) GOLYTELY AFTER MAGNESIUM GIVEN, 4) IF PT NOT CLEAR AFTER MAGNESIUM & GOLYTELY, ADMINISTER FLEETS ENEMA X1, 5) 1 UNIT OF PLATELETS NOW, 6) HEMOGLOBIN & HEMATOCRIT Q6H. IF HEMOGLOBIN <7, TRANSFUSE 1 UNIT OF PRBCS, IF HEMOGLOBIN <6, TRANSFUSE 2 UNITS PRBC AND 7) CBC AND COAGS TOMORROW AM. ALL ORDERS PLACED. WILL CONTINUE TO MONITOR.
[2017-08-19] MEDS ORDERED: PEG 3350/NA SULF,BICARB,CL/KCL 4,000 ML BOTTLE GT ONE (11:30)
[2017-08-19] MEDS ORDERED: MAGNESIUM CITRATE 296 ML BOTTLE GT ONE (11:30)
[2017-08-19 12:02] LABS: HEMOGLOBIN 7.8 g/dL (11.5-14.8)
--- NOTE | 2017-08-19 12:20 | NUR ---
RECOVERY ASSISTANT- PT'S MOTHER, PHUONG RAND AT BEDSIDE. UPDATED FAMILY MEMBER ON PT'S PLAN OF CARE. OBTAINED CONSENT FOR EGD, COLONOSCOPY & ANESTHESIA. ALL CONSENTS PLACED IN PT'S CHART. WILL CONTINUE TO MONITOR.
--- NOTE | 2017-08-19 12:30 | NUR ---
HOT DOG VENDOR- RECEIVED PHONE CALL FROM PHARMACY ON GOLYTELY ORDER. INFORMED PHARMACIST GOLYTELY IS NEEDED. PHARMACIST AWARE. 0045- CALLED PHARMACY TO FOLLOW UP ON GOLYTELY. THEY WILL FOLLOW UP ON ORDER. GOLYTELY NOT AVAILABLE TO ADMINISTER YET. WILL CONTINUE TO MONITOR.
--- NOTE | 2017-08-19 14:51 | NUR ---
LARISA met with pt's mother Sinai who wanted information on FMLA and a verification of admission letter. SW explained FMLA and typed a verification of admission letter for her employer.
[2017-08-19 15:13] LABS: ABG BASE EXCESS -4.4 mmol/L; ABG OXYGEN SATURATION 87.4 % (92.0-98.5); ABG PCO2 31.6 mmHg (35.0-45.0); ABG PO2 59.2 mmHg (75.0-100.0); AaDO2 189.7 mmHg; COHb 0.7 % (0.5-1.5); O2Hb 85.9 % (94.0-97.0); PEEP,BG 5 cm H2O; SITE, ABG Right Radial; VT, ABG 600 mL
[2017-08-19 19:10] LABS: HEMOGLOBIN 7.1 g/dL (11.5-14.8)
--- NOTE | 2017-08-19 20:00 | NUR ---
BULL LADLE TENDER INITIAL NOTE RECEIVED PT IN BED, ON KCI MATTRESS. OBTUNDED WITH EYES OPEN, DOES NOT TRACK. TELE READS ST AT 112 BPM, SBP 90's. ON VENT VIA PORTEX 7 TRACH, AC 15, TV 600, FIO2 40%, PEEP 5, JIMENA WELL. TRACH NOTED WITH BALLOON CUFF LEAK, MD AWARE, IN PROCESS FOR TRACH REPLACEMENT. NPO EXCEPT MEDS THEN NPO AFTER MIDNIGHT. ZUÑIGA CATH IN PLACE, DRAINING WELL TO GRAVITY WITH CLEAR HENRY URINE. IV SITES AT INGRID MIDLINE AND RIJ TLC, DRESSINGS CLEAN AND INTACT. RUNNING NS AT 100 ML/HR. SEVERE GENERALIZED EDEMA WITH TAUT SKIN. HYPOTHERMIC AT 97F, GALE HUGGER IN PLACE. WOUNDS NOTED AT SACRUM, RLE, FINGERS, AND ABDOMEN. PLANS TO DO EGD, COLONOSCOPY AND TRACH REPLACEMENT IN AM, CONSENTS COMPLETED. CURRENTLY IN THE PROCESS OF CLEARING BOWELS WITH GOLYTELY, REMAINS UNCLEAR WITH GREENISH BROWN DIARRHEA. HOB ELEVATED, TURNED AND REPOSITIONED, SIDE RAILS X3.
[2017-08-19] MEDS: VANCOMYCIN 1 GM in IV NS 0.9% 250 ML IV SCH (20:20)
[2017-08-19] MEDS: FLUCONAZOLE IN NS 100 MG in PREMIX 1 EA IV SCH ×2 (20:20)
--- NOTE | 2017-08-19 20:27 | NUR ---
PT RECEIVED TRACHED ON THE VENT WITH NOTED SETTINGS. VENT ALARMS WORKING AND AUDIBLE, AMBU BAG AT BEDSIDE. SUPERVISOR ORDER TAKERS CUFF PRESSURE NOTED. VENT IS PLUGGED INTO RED OUTLET. BREATHING TX GIVEN PER MD'S ORDERED. SUCTIONED MODERATE AMOUNT OF YELLOW THICK SECRETIONS WITH TINGED BLOOD. WILL CONTINUE TO MONITOR THE PT.
--- NOTE | 2017-08-19 21:00 | NUR ---
PRODUCT TRANSFER PUMPER NOTES BODY TEMP WNL AT 98.8F. GALE WEISS REMOVED.
[2017-08-19] MEDS: CADEXOMER IODINE 40 GM TUBE TP SCH (22:21)
[2017-08-19] MEDS: DOCUSATE SODIUM LIQ 100 MG/10 ML UDC GT SCH (22:23)
[2017-08-20] VITALS (53 sets, daily range): BP systolic 88–121; BP diastolic 44–75
[2017-08-20 00:50] LABS: HEMOGLOBIN 7.1 g/dL (11.5-14.8)
[2017-08-20] MEDS: IPRATROPIUM NEB FS 0.5 MG/2.5 ML AMPUL.NEB IH SCH ×4 (01:43→19:54)
[2017-08-20] MEDS: ALBUTEROL FS 2.5 MG/3 ML VIAL.NEB NEB SCH ×4 (01:43→19:54)
--- NOTE | 2017-08-20 01:45 | NUR ---
SURVIVAL EQUIPMENT REPAIRER NOTES PATIENT'S O2 SAT DECREASED TO 88%, SUCTIONED AND SENSOR CHANGED WITH NO EFFECT, RT AT BEDSIDE, FIO2 INCREASED TO 80% TO MAINTAIN PATIENT'S SAT >94%.
[2017-08-20] MEDS: IV NS 0.9% 1,000 ML IV PRN ×2 (02:17→16:04)
[2017-08-20] MEDS: NYSTATIN TOP POWDER 15 GM BOTTLE TP SCH ×2 (04:01→16:05)
[2017-08-20 05:00] LABS: EOSINOPHILS % (AUTO) 0.4 % (0.0-6.0); HEMATOCRIT 21 % (33-45); HEMOGLOBIN 7.2 g/dL (11.5-14.8); LYMPHOCYTES # (AUTO) 0.6 /CMM (0.8-4.8); LYMPHOCYTES % (AUTO) 3.9 % (20.0-44.0); MEAN CORPUSCULAR HGB CONC 34 g/dl (31.0-36.0); MEAN CORPUSCULAR VOLUME 85 fL (82-100); MONOCYTES # (AUTO) 0.7 /CMM (0.1-1.30); MONOCYTES % (AUTO) 4.4 % (2.0-12.0); NEUTROPHILS # (AUTO) 15.2 /CMM (1.8-8.9); NEUTROPHILS % (AUTO) 91.3 % (43.0-81.0); RDW COEFFICIENT OF VARIATION 17.7 (11.5-15.0); RED BLOOD CELL COUNT(AUTO) 2.49 MIL/uL (4.0-5.2); WHITE BLOOD COUNT (AUTO) 16.7 K/uL (4.3-11.0)
--- NOTE | 2017-08-20 05:00 | NUR ---
MEDICAL PHYSICS PROFESSOR NOTES PATIENT APPEARS TO BE CLEAR FOR COLONOSCOPY IN TERMS ON CLEAR LIQUID BOWEL MOVEMENTS.
[2017-08-20 05:12] LABS: PLATELET COUNT (AUTO) 37 /CMM (150-450)
[2017-08-20 05:18] LABS: CALCIUM, SERUM 8.1 mg/dL (8.5-10.1); POTASSIUM 2.9 mmol/L (3.5-5.1)
[2017-08-20 05:26] LABS: INR 2.41 (0.87-1.13)
[2017-08-20 05:34] LABS: NEUTROPHILS % (MANUAL) 85 (42-76)
[2017-08-20 05:35] LABS: BAND % (MANUAL) 7 % (0.0-5.0); LYMPHOCYTES % (MANUAL) 4 % (16-48); MONOCYTES % (MANUAL) 4 % (0-11.0)
[2017-08-20] MEDS: PIPERACILLIN /TAZOBACTAM 3.375 G in IV D5W 50 ML IV SCH ×3 (06:05→17:12)
--- NOTE | 2017-08-20 06:12 | NUR ---
DIVISION ROADMASTER NOTES CRITICAL LAB: PLT 37 CHIQUI [place] CONSULTANT CONTACTED AND RECEIVED ORDER FOR 1 UNIT PLATELET. PER CHIQUI, GI CONSULT ADDISON ALTAMIRANO WAS NOTIFIED.
[2017-08-20] MEDS: FERROUS SULFATE UDC 300 MG/5 ML UDC GT SCH (08:42)
[2017-08-20] MEDS: MULTIVITAMINS,THERAGRAN 1 UDTAB TABLET GT SCH (08:42)
[2017-08-20] MEDS: FAMOTIDINE (20 MG) 20 MG TABLET GT SCH ×2 (08:42→17:12)
[2017-08-20] MEDS: ZINC SULFATE 220 MG CAPSULE GT SCH (08:42)
[2017-08-20] MEDS: PANTOPRAZOLE 40 MG VIAL IV SCH ×2 (08:42→20:38)
[2017-08-20] MEDS: ACIDOPHILUS/BULGARICUS 1 EACH TAB.CHEW GT SCH (08:42)
[2017-08-20] MEDS: CADEXOMER IODINE 40 GM TUBE TP SCH ×2 (09:19→21:00)
[2017-08-20] MEDS: POLYVINYL ALCOHOL 15 ML BOTTLE EACHEYE SCH ×2 (09:20→17:15)
[2017-08-20] MEDS: PROSOURCE / PROSTAT (PYXIS) 30 ML UDC GT SCH ×2 (09:21→17:13)
[2017-08-20] MEDS: HYDROCODONE/APAP 5/325MG 1 EACH TABLET GT SCH ×2 (09:26→17:12)
[2017-08-20] MEDS ORDERED: POTASSIUM CHLORIDE 20 MEQ POWDER PACKET GT SCH (11:30)
[2017-08-20] MEDS ORDERED: POTASSIUM CHLORIDE 10 MEQ/50 ML PREMIXED IVPB FOR PERIPHERAL LINE IV ONE (12:00)
[2017-08-20] MEDS: POTASSIUM CL. PREMIX PERIPHER. 50 ML IV SCH ×5 (12:53→17:54)
[2017-08-20 13:40] LABS: HEMOGLOBIN 6.7 g/dL (11.5-14.8)
[2017-08-20 14:24] LABS: EOSINOPHILS % (AUTO) 0.6 % (0.0-6.0); LYMPHOCYTES # (AUTO) 0.8 /CMM (0.8-4.8); LYMPHOCYTES % (AUTO) 5.3 % (20.0-44.0); MEAN CORPUSCULAR HGB CONC 34 g/dl (31.0-36.0); MEAN CORPUSCULAR VOLUME 84 fL (82-100); MONOCYTES # (AUTO) 0.6 /CMM (0.1-1.30); MONOCYTES % (AUTO) 3.9 % (2.0-12.0); NEUTROPHILS # (AUTO) 12.9 /CMM (1.8-8.9); NEUTROPHILS % (AUTO) 90.2 % (43.0-81.0); RDW COEFFICIENT OF VARIATION 17.8 (11.5-15.0); RED BLOOD CELL COUNT(AUTO) 2.37 MIL/uL (4.0-5.2); WHITE BLOOD COUNT (AUTO) 14.3 K/uL (4.3-11.0)
[2017-08-20 14:48] LABS: HEMATOCRIT 20 % (33-45); HEMOGLOBIN 6.7 g/dL (11.5-14.8); PLATELET COUNT (AUTO) 33 /CMM (150-450)
--- NOTE | 2017-08-20 19:00 | NUR ---
GLOBAL RISK MANAGEMENT DIRECTOR NOTES Received patient with tracheostomy on the ventilator on AC MODE,obtunded ,contracted extremities,+ slight cough and slight cough when suctioned,blinks eyes and opens eyes.PRBC transfusion on going .TLC right IJ with good blood return on all ports.G tube clamped,patent when flushed.Extremely edematous all over the body as well as abdomen very tight and firm.Necrotic fingers noted .Comfort care done.
[2017-08-20] MEDS: FLUCONAZOLE IN NS 100 MG in PREMIX 1 EA IV SCH ×2 (19:59)
[2017-08-20] MEDS ORDERED: VANCOMYCIN 0.75 GM in IV NS 0.9% 250 ML IV SCH (21:00)
[2017-08-20] MEDS: MEROPENEM 500 MG in IV NS 0.9% 50 ML IV SCH (21:15)
[2017-08-20] MEDS: DOCUSATE SODIUM LIQ 100 MG/10 ML UDC GT SCH (21:41)
[2017-08-20 23:36] LABS: HEMOGLOBIN 8.2 g/dL (11.5-14.8)
[2017-08-20] MEDS: MORPHINE SULFATE INJ 4 MG/ML DISP.SYRIN IV PRN (23:57)
[2017-08-21] VITALS (38 sets, daily range): BP systolic 97–117; BP diastolic 50–81
--- NOTE | 2017-08-21 | NUR ---
BOARD WINDER NOTES Status unchanged,remains obtunded,responds to deep pain and suctioning.With episode of tachypnea but not in acute distress and saturating in the 90's.Comfort care done.
[2017-08-21] MEDS: ALBUTEROL FS 2.5 MG/3 ML VIAL.NEB NEB SCH ×4 (02:21→19:48)
[2017-08-21] MEDS: IPRATROPIUM NEB FS 0.5 MG/2.5 ML AMPUL.NEB IH SCH ×4 (02:21→19:48)
[2017-08-21 05:00] LABS: CALCIUM, SERUM 8.3 mg/dL (8.5-10.1); CREATININE 1.2 mg/dL (0.6-1.3); POTASSIUM 3.1 mmol/L (3.5-5.1)
[2017-08-21] MEDS: NYSTATIN TOP POWDER 15 GM BOTTLE TP SCH ×2 (05:25→17:28)
[2017-08-21] MEDS: MEROPENEM 500 MG in IV NS 0.9% 50 ML IV SCH ×3 (05:25→21:09)
[2017-08-21] MEDS: IV NS 0.9% 1,000 ML IV PRN (06:33)
[2017-08-21] MEDS ORDERED: IV 1/2NS 1000 ML 1,000 ML IV SCH (07:00)
--- NOTE | 2017-08-21 07:18 | NUR ---
RT PT RECEIVED TRACHED ON THE VENT WITH NOTED SETTINGS. PT IS AWAKE BUT DOES NOT FOLLOW COMMANDS. VENT ALARMS ARE SET AND AUDIBLE WITH BVM BY BEDSIDE. INFRASTRUCTURE DEVELOPER CUFF PRESSURE NOTED. VENT IS PLUGGED INTO RED OUTLET. WILL CONTINUE TO MONITOR. Addendum: 08/21/17 at 1750 by RAMIREZ CASTILLO RT Amended: Links added.
--- NOTE | 2017-08-21 08:05 | NUR ---
STRATEGY LEAD NOTES AM CARE DONE,NO RECTAL BLEEDING NOTED.NEURO STATUS UNCHANGED.TRACHE CARE/WOUND CARE DONE.
[2017-08-21] MEDS: HYDROCODONE/APAP 5/325MG 1 EACH TABLET GT SCH ×3 (08:06→17:29)
[2017-08-21] MEDS: FERROUS SULFATE UDC 300 MG/5 ML UDC GT SCH ×2 (08:08→08:58)
[2017-08-21] MEDS: ACIDOPHILUS/BULGARICUS 1 EACH TAB.CHEW GT SCH ×2 (08:08→08:58)
[2017-08-21] MEDS: FAMOTIDINE (20 MG) 20 MG TABLET GT SCH ×3 (08:09→17:29)
[2017-08-21] MEDS: PROSOURCE / PROSTAT (PYXIS) 30 ML UDC GT SCH ×3 (08:09→17:30)
[2017-08-21] MEDS: ZINC SULFATE 220 MG CAPSULE GT SCH ×2 (08:11→08:58)
[2017-08-21] MEDS: MULTIVITAMINS,THERAGRAN 1 UDTAB TABLET GT SCH ×2 (08:11→08:58)
[2017-08-21] MEDS: POLYVINYL ALCOHOL 15 ML BOTTLE EACHEYE SCH ×2 (08:12→17:29)
[2017-08-21] MEDS: CADEXOMER IODINE 40 GM TUBE TP SCH ×2 (08:13→21:11)
[2017-08-21 08:37] LABS: BASOPHILS % (AUTO) 0.1 % (0.0-2.0); EOSINOPHILS % (AUTO) 0.7 % (0.0-6.0); HEMATOCRIT 24 % (33-45); LYMPHOCYTES # (AUTO) 0.8 /CMM (0.8-4.8); LYMPHOCYTES % (AUTO) 4.6 % (20.0-44.0); MEAN CORPUSCULAR HGB CONC 34 g/dl (31.0-36.0); MEAN CORPUSCULAR VOLUME 85 fL (82-100); MONOCYTES # (AUTO) 0.7 /CMM (0.1-1.30); NEUTROPHILS # (AUTO) 15.1 /CMM (1.8-8.9); NEUTROPHILS % (AUTO) 90.6 % (43.0-81.0); RDW COEFFICIENT OF VARIATION 17.4 (11.5-15.0); RED BLOOD CELL COUNT(AUTO) 2.77 MIL/uL (4.0-5.2); WHITE BLOOD COUNT (AUTO) 16.7 K/uL (4.3-11.0)
[2017-08-21 08:43] LABS: PLATELET COUNT (AUTO) 43 /CMM (150-450)
[2017-08-21] MEDS: PANTOPRAZOLE 40 MG VIAL IV SCH ×2 (08:44→21:09)
[2017-08-21] MEDS: IV D5W 1,000 ML IV PRN (08:58)
[2017-08-21 09:14] LABS: ABG BASE EXCESS -4.3 mmol/L; ABG OXYGEN SATURATION 82.7 % (92.0-98.5); ABG PCO2 30.2 mmHg (35.0-45.0); ABG PH 7.426 (7.350-7.450); ABG PO2 48.4 mmHg (75.0-100.0); AaDO2 274.1 mmHg; COHb 0.6 % (0.5-1.5); MetHb 0.6 % (0.0-1.5); O2Hb 81.7 % (94.0-97.0); PEEP,BG 5 cm H2O; SITE, ABG Right Radial; VT, ABG 500 mL
[2017-08-21 09:18] LABS: BAND % (MANUAL) 3 % (0.0-5.0); EOSINOPHILS % (MANUAL) 2 % (0-4); LYMPHOCYTES % (MANUAL) 6 % (16-48); MONOCYTES % (MANUAL) 2 % (0-11.0); NEUTROPHILS % (MANUAL) 87 (42-76)
[2017-08-21] MEDS: POTASSIUM CL. PREMIX PERIPHER. 50 ML IV SCH ×4 (09:37→12:32)
[2017-08-21] MEDS: FIBERSOURCE HN 1,000 ML BOTTLE GT PRN (11:12)
--- NOTE | 2017-08-21 11:22 | NUR ---
HOMEMAKING REHABILITATION CONSULTANT NOTE 0720: Received patient able to open eyes but does not follow commands. With trache to vent, tolerated settings well. No respiratory distress noted at this time. With GT clamped, no residuals noted. Douglass cath intact, noted with minimal amount of baltazar colored urine with sediments. With RIJ TLC intact, IVF infusing as ordered. With INGRID midline intact. With both hands with fingers wounds, dressing CDI. Right lower leg wound with dressing CDI. Noted patient with very taut skin, and edematous, hard when touched. No active bleeding noted at this time. 0830: S/E by Dr. Tavera, ordered to change IVF to D5W @ 75 for Na 153 and to give 4 bags of KCl for K 3.1. Placed on contact precaution, awaiting wound CS.- 0900: Verified by Amberly that no procedure to be done with the patient, and may restart on GT feeding. Made Dr. Tavera aware that restarting patient on feeding, said ask Nephro for order for water flush, said ok to continue D5W @ 75 for now. Awaiting nephro consult. 0930: Noted patient desat 88% sustaining, changed FIO2 to 100%, awaiting pulmo rounds. 96% on 100% FIO2. 1115: S/E by Pat ALTAMIRANO, continue skin treatments and orders. 1120: Started on GT feeding, will monitor if tolerated. Noted patient with RR 35, Given Morphine as ordered, will continue to monitor.
[2017-08-21] MEDS: MORPHINE SULFATE INJ 4 MG/ML DISP.SYRIN IV PRN ×3 (11:46→21:10)
[2017-08-21 13:23] LABS: HEMOGLOBIN 8.5 g/dL (11.5-14.8)
[2017-08-21] MEDS: MICAFUNGIN SODIUM 100 MG in IV NS 0.9% 100 ML IV SCH (17:27)
--- NOTE | 2017-08-21 18:10 | NUR ---
TRANSMITTER TESTER NOTE 1345: S/E by Dr. Dover, with new vent settings carried out by RT. 1620: Restarted patient on eliot hugger for temp 95.8. S/E by EVELIA Rolon with new orders carried out. Turned off GT^ feeding for residuals 80 mL and noted abdomen still really hard, patient still not monitoring well. 1810: No any significant changes noted. Kept clean, warm and dry. Needs attended.
--- NOTE | 2017-08-21 19:00 | NUR ---
DRIVER MATERIAL HANDLER NOTES Received patient with tracheostomy to the ventilator on AC mode,tachypneic ,with deep inspiratory effort,saturating in the 90's.TLC left IJ ,G tube clamped ,feeding on hold due to high residuals. Parmjit Hugger on due to hypothermia,will monitor temperature.Comfort care done.
[2017-08-21] MEDS: DOCUSATE SODIUM LIQ 100 MG/10 ML UDC GT SCH (21:10)
--- NOTE | 2017-08-21 22:05 | NUR ---
GALE WEISS (WARMING BLANKET ) OFF TEMP=98.4
[2017-08-22] VITALS (47 sets, daily range): BP systolic 56–132; BP diastolic 15–68
--- NOTE | 2017-08-22 | NUR ---
SURVEY COMPILER NOTES Status unchanged,G tube residual re checked = 30 ml.Resumed feeding at lower rate as tolerated then gradually increase.will rechecked residuals in 4 hrs.
[2017-08-22] MEDS: IV D5W 1,000 ML IV PRN ×2 (00:55→14:50)
[2017-08-22] MEDS: IPRATROPIUM NEB FS 0.5 MG/2.5 ML AMPUL.NEB IH SCH ×4 (01:04→19:58)
[2017-08-22] MEDS: ALBUTEROL FS 2.5 MG/3 ML VIAL.NEB NEB SCH ×4 (01:04→19:58)
[2017-08-22] MEDS: NYSTATIN TOP POWDER 15 GM BOTTLE TP SCH ×2 (03:49→16:59)
[2017-08-22] MEDS: MORPHINE SULFATE INJ 4 MG/ML DISP.SYRIN IV PRN (03:53)
--- NOTE | 2017-08-22 05:00 | NUR ---
TOOL LAPPER HAND NOTES AM CARE DONE, feeding residuals rechecked = 20 ml.will increase feeding to 40 ml /hr.
[2017-08-22 05:12] LABS: CALCIUM, SERUM 8.3 mg/dL (8.5-10.1); CREATININE 1.3 mg/dL (0.6-1.3); POTASSIUM 3.3 mmol/L (3.5-5.1)
[2017-08-22] MEDS: MEROPENEM 500 MG in IV NS 0.9% 50 ML IV SCH ×3 (05:46→20:17)
--- NOTE | 2017-08-22 07:29 | NUR ---
Received megan pt on mechanical vent. Pt megan is secure. Vent is plugged into a red outlet, alarms are set and audible, and BVM is at bedside. Addendum: 08/22/17 at 0732 by JALEN TAI RT Amended: Links added.
[2017-08-22] MEDS ORDERED: VANCOMYCIN 0.75 GM in IV NS 0.9% 250 ML IV SCH ×2 (08:00→16:00)
--- NOTE | 2017-08-22 08:31 | NUR ---
INITIAL APPLIANCES SAMPLE MAKER NOTE RCVD PT WITH EYES OPEN, UNABLE TO FOLLOW COMMANDS, BILATERAL UPPER AND LOWER EXTREMITIES RIGID, OFF BEAR HUGGER. ST ON TELE. TOLERATING ORDERED VENT SETTINGS WELL. PEG PLACEMENT VERIFIED BY AUSCULTATION/ASPIRATION. RESIDUAL 80ML OBTAINED. TUBE FEEDING CONTINUED WILL MONITOR RESIDUALS. ZUÑIGA TO GRAVITY DRAINING CLOUDY, CONCENTRATED YELLOW URINE. IV SITES C/D/I/PATENT. NO S/O INFILTRATION/PHLEBITIS OBSERVED UPON FLUSHING, IVF INFUSING WELL. BED IN LOW AND LOCKED POSITION. PT'S TEMP THIS AM 95.9 RECTALLY BEAR HUGGER RESUMED AND RECTAL PROBE REPLACED AND SECURED WITH TAPE.
[2017-08-22 08:53] LABS: ABG PCO2 43.6 mmHg (35.0-45.0); ABG PH 7.268 (7.350-7.450); AaDO2 561.4 mmHg; MetHb 0.4 % (0.0-1.5); O2Hb 96.6 % (94.0-97.0); PEEP,BG 10 cm H2O; SITE, ABG Right Radial; VT, ABG 350 mL
[2017-08-22] MEDS: FAMOTIDINE (20 MG) 20 MG TABLET GT SCH ×2 (09:04→18:01)
[2017-08-22] MEDS: FERROUS SULFATE UDC 300 MG/5 ML UDC GT SCH (09:04)
[2017-08-22] MEDS: MULTIVITAMINS,THERAGRAN 1 UDTAB TABLET GT SCH (09:04)
[2017-08-22] MEDS: PROSOURCE / PROSTAT (PYXIS) 30 ML UDC GT SCH ×2 (09:04→18:03)
[2017-08-22] MEDS: ACIDOPHILUS/BULGARICUS 1 EACH TAB.CHEW GT SCH (09:04)
[2017-08-22] MEDS: PANTOPRAZOLE 40 MG VIAL IV SCH ×2 (09:04→20:17)
[2017-08-22] MEDS: ZINC SULFATE 220 MG CAPSULE GT SCH (09:04)
[2017-08-22] MEDS: POLYVINYL ALCOHOL 15 ML BOTTLE EACHEYE SCH ×2 (09:18→18:03)
[2017-08-22] MEDS: HYDROCODONE/APAP 5/325MG 1 EACH TABLET GT SCH ×2 (09:18→18:04)
[2017-08-22] MEDS: CADEXOMER IODINE 40 GM TUBE TP SCH ×2 (09:19→20:19)
[2017-08-22] MEDS ORDERED: POTASSIUM CHLORIDE 20 MEQ POWDER PACKET GT ONE ×2 (09:30→17:00)
--- NOTE | 2017-08-22 10:39 | NUR ---
CANDY SPREADER NOTE PT'S OLDER BROTHER AT BEDSIDE, UPDATED ON PT'S CONDITION. QUESTIONS ANSWERED TO HIS SATISFACTION.
[2017-08-22 11:09] LABS: BASOPHILS # (AUTO) 0.1 /CMM (0.0-0.2); BASOPHILS % (AUTO) 0.2 % (0.0-2.0); EOSINOPHILS % (AUTO) 0.5 % (0.0-6.0); HEMATOCRIT 24 % (33-45); HEMOGLOBIN 7.9 g/dL (11.5-14.8); LYMPHOCYTES # (AUTO) 0.9 /CMM (0.8-4.8); LYMPHOCYTES % (AUTO) 3.3 % (20.0-44.0); MEAN CORPUSCULAR HGB CONC 33 g/dl (31.0-36.0); MEAN CORPUSCULAR VOLUME 86 fL (82-100); MONOCYTES # (AUTO) 0.2 /CMM (0.1-1.30); MONOCYTES % (AUTO) 0.6 % (2.0-12.0); NEUTROPHILS # (AUTO) 25.5 /CMM (1.8-8.9); NEUTROPHILS % (AUTO) 95.4 % (43.0-81.0); PLATELET COUNT (AUTO) 79 /CMM (150-450); RDW COEFFICIENT OF VARIATION 18.9 (11.5-15.0); RED BLOOD CELL COUNT(AUTO) 2.78 MIL/uL (4.0-5.2); WHITE BLOOD COUNT (AUTO) 26.8 K/uL (4.3-11.0)
[2017-08-22 11:24] LABS: BAND % (MANUAL) 8 % (0.0-5.0); LYMPHOCYTES % (MANUAL) 4 % (16-48); MONOCYTES % (MANUAL) 4 % (0-11.0); NEUTROPHILS % (MANUAL) 84 (42-76)
[2017-08-22] MEDS: MICAFUNGIN SODIUM 100 MG in IV NS 0.9% 100 ML IV SCH (15:49)
[2017-08-22] MEDS ORDERED: FENTANYL CITRATE IV 1,250 MCG in IV NS 0.9% 225 ML IV PRN (16:30)
--- NOTE | 2017-08-22 17:52 | NUR ---
SALES TRAINEE NOTE LORNA ASSOCIATE AT BEDSIDE INFORMED OF HOLDING TUBE FEEDING DUE TO HIGH RESIDUAL AND OBSERVING TUBE FEEDING COMING OUT OF PT'S NARES, TRACH, PEG INSERTION SITE UPON PT BEING ON A SUPINE POSITION. SHE AGREED TO HOLD FOR NOW AND MONITOR RESIDUALS.
[2017-08-22] MEDS: FIBERSOURCE HN 1,000 ML BOTTLE GT PRN (18:39)
--- NOTE | 2017-08-22 19:51 | NUR ---
FUEL CELL SYSTEMS ENGINEER NOTE NO CHANGE IN PT'S CONDITION. PT'S CARE ENDORSED TO SPEED READING TEACHER RN FOR CONTINUITY OF CARE. BED IN LOW AND LOCKED POSITION. FENTANYL GTT STARTED ORDERED AND ENDORSED.
--- NOTE | 2017-08-22 20:00 | NUR ---
COORDINATOR OF ONLINE PROGRAMS - NOTES - RECEIVED PT WITH EYES OPEN, UNABLE TO FOLLOW COMMANDS, BILATERAL UPPER AND LOWER EXTREMITIES RIGID, ON GALE HUGGER. ST ON TELE. TOLERATING ORDERED VENT SETTINGS WELL. PEG PLACEMENT VERIFIED BY AUSCULTATION/ASPIRATION. RESIDUAL 80ML OBTAINED. TUBE FEEDING CONTINUED WILL MONITOR RESIDUALS. ZUÑIGA TO GRAVITY DRAINING CLOUDY, CONCENTRATED YELLOW URINE. IV SITES C/D/I/PATENT. NO S/O INFILTRATION/PHLEBITIS OBSERVED UPON FLUSHING, IVF INFUSING WELL. BED IN LOW AND LOCKED POSITION.
[2017-08-22] MEDS ORDERED: NOREPINEPHRINE 4 MG/4 ML AMPUL IV ONE (21:16)
[2017-08-22] MEDS: NOREPINEPHRINE 16 MG in IV D5W 500 ML IV PRN (21:19)
--- NOTE | 2017-08-22 21:24 | NUR ---
RECEIVED PT VENT TRACH. NO RES DISTRESS NOTED. PT TOLERATING SETTINGS. SX'D FOR MOD AMT OF THICK WRIGHT SECRETIONS. VENT ALARMS SET AND AUDIBLE. VENT PLUGGED INTO RED OUTLET. WILL CONTINUE TO MONITOR. Addendum: 08/22/17 at 2126 by GEO DAWN RT Amended: Links added.
--- NOTE | 2017-08-22 22:00 | NUR ---
SYSTOLIC BLOOD PRESSURE READING LOW, 30S-60S, REPEATED MULTIPLE TIMES @ APPROX 2130, IT IS DIFFICULT TO FEEL FOR PULSE BECAUSE SKIN IS SO TAUT AND FIRM, LEVO STARTED, THEN @ 2200 MANUAL BLOOD PRESSURE TAKEN, 130/68, BP CUFF REPLACED AND NOW BP READING 122/55
[2017-08-22] MEDS: DOCUSATE SODIUM LIQ 100 MG/10 ML UDC GT SCH (22:07)
[2017-08-23] VITALS (99 sets, daily range): BP systolic 40–125; BP diastolic 22–67
[2017-08-23] MEDS: ALBUTEROL FS 2.5 MG/3 ML VIAL.NEB NEB SCH ×5 (00:56→20:37)
[2017-08-23] MEDS: IPRATROPIUM NEB FS 0.5 MG/2.5 ML AMPUL.NEB IH SCH ×5 (00:56→20:37)
--- NOTE | 2017-08-23 01:00 | NUR ---
REPORT GIVEN TO RAJENDRA
[2017-08-23] MEDS: NYSTATIN TOP POWDER 15 GM BOTTLE TP SCH ×2 (03:42→16:17)
[2017-08-23] MEDS: MEROPENEM 500 MG in IV NS 0.9% 50 ML IV SCH ×3 (04:01→21:14)
[2017-08-23 05:14] LABS: CALCIUM, SERUM 8.7 mg/dL (8.5-10.1); CREATININE 1.7 mg/dL (0.6-1.3); POTASSIUM 4.2 mmol/L (3.5-5.1)
--- NOTE | 2017-08-23 07:48 | NUR ---
INITIAL DOOR ASSEMBLER NOTE RCVD PT WITH EYES OPEN, KATEY WEISS RE-STARTED AT A LOW TEMPERATURE. ST ON TELE. PT'S TACHYPNEIC, BREATHING OVER THE SET RATE OF THE VENT. PEG PLACEMENT VERIFIED BY AUSCULTATION/ASPIRATION, GASTRIC CONTENTS OBSERVED UPON ASPIRATING. ZUÑIGA TO GRAVITY DRAINING CLOUDY, HENRY COLORED URINE. IV SITES C/D/I/PATENT. NO S/O INFILTRATION/PHLEBITIS OBSERVED IVF INFUSING. WILL CONTINUE TO MONITOR PT FOR SAFETY AND COMFORT. BED IN LOW AND LOCKED POSITION.
[2017-08-23 08:15] LABS: EOSINOPHILS % (AUTO) 0.3 % (0.0-6.0); HEMATOCRIT 23 % (33-45); HEMOGLOBIN 7.3 g/dL (11.5-14.8); LYMPHOCYTES # (AUTO) 1.3 /CMM (0.8-4.8); LYMPHOCYTES % (AUTO) 5.1 % (20.0-44.0); MEAN CORPUSCULAR HGB CONC 33 g/dl (31.0-36.0); MEAN CORPUSCULAR VOLUME 88 fL (82-100); MONOCYTES # (AUTO) 0.7 /CMM (0.1-1.30); MONOCYTES % (AUTO) 2.8 % (2.0-12.0); NEUTROPHILS # (AUTO) 23.6 /CMM (1.8-8.9); NEUTROPHILS % (AUTO) 91.8 % (43.0-81.0); PLATELET COUNT (AUTO) 120 /CMM (150-450); RED BLOOD CELL COUNT(AUTO) 2.58 MIL/uL (4.0-5.2); WHITE BLOOD COUNT (AUTO) 25.7 K/uL (4.3-11.0)
[2017-08-23 08:49] LABS: ABG BASE EXCESS -11.8 mmol/L; ABG OXYGEN SATURATION 82.7 % (92.0-98.5); ABG PCO2 35.9 mmHg (35.0-45.0); ABG PH 7.232 (7.350-7.450); AaDO2 630.1 mmHg; COHb 0.4 % (0.5-1.5); MetHb 0.3 % (0.0-1.5); O2Hb 82.1 % (94.0-97.0); PEEP,BG 12 cm H2O; SITE, ABG Right Radial; VT, ABG 350 mL
[2017-08-23] MEDS ORDERED: FENTANYL CITRATE IV 1,250 MCG in IV NS 0.9% 225 ML IV PRN (09:00)
[2017-08-23 09:31] LABS: BAND % (MANUAL) 6 % (0.0-5.0); LYMPHOCYTES % (MANUAL) 5 % (16-48); MONOCYTES % (MANUAL) 1 % (0-11.0); NEUTROPHILS % (MANUAL) 88 (42-76)
[2017-08-23] MEDS: PROPOFOL 100 ML IV PRN ×4 (10:41→21:25)
[2017-08-23] MEDS: IV D5W 1,000 ML IV PRN (10:54)
[2017-08-23] MEDS: POLYVINYL ALCOHOL 15 ML BOTTLE EACHEYE SCH ×2 (11:23→16:17)
[2017-08-23] MEDS: FERROUS SULFATE UDC 300 MG/5 ML UDC GT SCH (11:31)
[2017-08-23] MEDS: CADEXOMER IODINE 40 GM TUBE TP SCH ×2 (11:31→21:23)
[2017-08-23] MEDS: ACIDOPHILUS/BULGARICUS 1 EACH TAB.CHEW GT SCH (11:32)
[2017-08-23] MEDS: FAMOTIDINE (20 MG) 20 MG TABLET GT SCH ×2 (11:34→16:15)
[2017-08-23] MEDS: HYDROCODONE/APAP 5/325MG 1 EACH TABLET GT SCH ×2 (11:34→16:16)
[2017-08-23] MEDS: PROSOURCE / PROSTAT (PYXIS) 30 ML UDC GT SCH ×2 (11:35→16:15)
[2017-08-23] MEDS: PANTOPRAZOLE 40 MG VIAL IV SCH ×2 (11:35→21:14)
[2017-08-23] MEDS: MULTIVITAMINS,THERAGRAN 1 UDTAB TABLET GT SCH (11:35)
[2017-08-23] MEDS: ZINC SULFATE 220 MG CAPSULE GT SCH (11:35)
--- NOTE | 2017-08-23 12:13 | NUR ---
EDUCATION FINANCE PROCESSOR NOTE DR. MATT IN UNIT RECOMMENDED TO INCREASE PEEP TO 15, CHANGE FENTANYL GTT TO DIPRIVAN AND START LEVO IF NEEDED. PT'S SBP DROPPED LEVO STARTED ORDERED. PT'S MOTHER AT BEDSIDE UPDATED ON PT'S CONDITION, QUESTIONS ANSWERED TO HER SATISFACTION.
[2017-08-23] MEDS: MICAFUNGIN SODIUM 100 MG in IV NS 0.9% 100 ML IV SCH (15:10)
--- NOTE | 2017-08-23 17:45 | NUR ---
RT END OF THE SHIFT REPORT, PT. 36 Y OLD FEMALE REMAIN TRACHED SHILEY XLT # 7 ON VENT WITH NOTED SETTINGS. ALARMS ARE SET AND AUDIBLE WITH AMBU BAG AT THE BEDSIDE. REQUISITION APPROVER CUFF PRESSURE CHECKED. VENT IS PLUGGED INTO RED OUTLET. B/S BILATERALLY RHONCHI SX MODERATE THICK YELLOW SECRETIONS. NO RESPIRATORY DISTRESS NOTED T/O SHIFT, TX'S GIVEN INLINE NO ADVERSE REACTION NOTED. HME CHANGED. PT. REMAIN STABLE. CHANGES PER DR. MATT ORDER REPORT WILL PASS TO PM SHIFT. Addendum: 08/23/17 at 1746 by NICOLASA DESHPANDE RT Amended: Links added.
[2017-08-23] MEDS ORDERED: NOREPINEPHRINE 16 MG in IV D5W 500 ML IV PRN (18:00)
--- NOTE | 2017-08-23 18:16 | NUR ---
MUTUAL FUND ANALYST NOTE PT RESPONDED WELL TO DIPRIVAN, BREATHING ON AC MODE, TOLERATING VENT SETTINGS AT THIS TIME, ST ON TELE. NPO FOR NOW PER GI's RECOMMENDATION. LOW URINARY OUTPUT, HOSPITALIST AWARE. LEVO GTT CONTINUES TO INFUSE. PT'S CARE WILL BE ENDORSED TO EMERGING SOLUTIONS EXECUTIVE RN FOR CONTINUITY OF CARE. BED IN LOW AND LOCKED POSITION. PT'S FATHER, GENOVEVA CALLED EARLIER TODAY UPDATED ON PT'S CONDITION. PT'S MOM, PHUONG WANTED TO SPEAK WITH DR. MATT ABOUT PT'S CONDITION THIS WAS FACILITATED OVER THE PHONE.
--- NOTE | 2017-08-23 19:30 | NUR ---
RN NOTES PT ON TRACH CONNECTED TO VENT SETTING ORDERED TOLERATED WELL SATING 98-100%. WITH PROPOFOL @ 40 MCG/KG/MIN. STRICTLY OBSERVED ON ISOLATION FOR POSS. STAPH ON HER WOUND FINGER. TELE MONITOR REVEALS ST HR 104. NO ACUTE RESP DISTRESS. IV SITE ON RIJ WITH D5W @ 75 CC/HR , LEVOPHED @ 9 MCG/MIN AND DIPRIVAN @ 40 MCG/KG/MIN. AND INGRID SL. ALL IVS ARE INTACT AND PATENT. GTF HELD DUE TO HIGH RESIDUAL. PATENCY CHECKED NOTED WITH COFFEE GROUND RESIDUAL. WITH F/C INTACT NO OUTPUT PRESENT. REPOSITIONED FOR SKIN CARE AND COMFORT. OFFLODED EXT WITH PILLOWS. WILL CONTINUE TO MONITOR.
[2017-08-23] MEDS: DOCUSATE SODIUM LIQ 100 MG/10 ML UDC GT SCH (21:53)
--- NOTE | 2017-08-23 22:11 | NUR ---
pt received on vent via charted settings and route. ambu bag at bedside alarms set and audible. disconnect alarms checked. vent plugged into red outlet. tolerating vent at this time Addendum: 08/23/17 at 2211 by ARTEMIO FLORES RT Amended: Links added.
[2017-08-23] MEDS: NOREPINEPHRINE 16 MG in IV D5W 500 ML IV PRN (22:52)
[2017-08-24] VITALS (145 sets, daily range): BP systolic 37–161; BP diastolic 16–97
[2017-08-24] MEDS: ALBUTEROL FS 2.5 MG/3 ML VIAL.NEB NEB SCH ×4 (01:41→19:57)
[2017-08-24] MEDS: IPRATROPIUM NEB FS 0.5 MG/2.5 ML AMPUL.NEB IH SCH ×4 (01:41→19:57)
[2017-08-24] MEDS: PROPOFOL 100 ML IV PRN ×3 (02:02→13:08)
[2017-08-24] MEDS: IV D5W 1,000 ML IV PRN ×2 (02:04→18:27)
--- NOTE | 2017-08-24 04:20 | NUR ---
RN NOTES BED BATH DONE TREATMENT RENDERED PT TOLERATED WELL SATING REMAINED AT 98%. ST ON TELE MONITOR. 1 SMALL SOFT BROWN BOWEL PRESENT. NO FACIAL COMPLAIN OF PAIN. CONTINUE TO MONITOR.
[2017-08-24] MEDS: MEROPENEM 500 MG in IV NS 0.9% 50 ML IV SCH ×2 (05:07→13:08)
[2017-08-24] MEDS: NYSTATIN TOP POWDER 15 GM BOTTLE TP SCH ×2 (05:08→16:13)
[2017-08-24 05:27] LABS: BASOPHILS % (AUTO) 0.1 % (0.0-2.0); EOSINOPHILS % (AUTO) 0.4 % (0.0-6.0); HEMATOCRIT 22 % (33-45); HEMOGLOBIN 7.5 g/dL (11.5-14.8); LYMPHOCYTES % (AUTO) 6.5 % (20.0-44.0); MEAN CORPUSCULAR HGB CONC 34 g/dl (31.0-36.0); MEAN CORPUSCULAR VOLUME 88 fL (82-100); MONOCYTES # (AUTO) 0.6 /CMM (0.1-1.30); NEUTROPHILS # (AUTO) 27.3 /CMM (1.8-8.9); PLATELET COUNT (AUTO) 255 /CMM (150-450); RDW COEFFICIENT OF VARIATION 19.4 (11.5-15.0); RED BLOOD CELL COUNT(AUTO) 2.52 MIL/uL (4.0-5.2)
[2017-08-24 05:50] LABS: CALCIUM, SERUM 8.6 mg/dL (8.5-10.1); MAGNESIUM 2.4 mg/dL (1.8-2.4); PHOSPHORUS 6.1 mg/dL (2.5-4.9); POTASSIUM 4.8 mmol/L (3.5-5.1)
[2017-08-24] MEDS ORDERED: VANCOMYCIN 0.75 GM in IV D5W 250 ML IV SCH (06:00)
[2017-08-24 06:19] LABS: BAND % (MANUAL) 1 % (0.0-5.0); LYMPHOCYTES % (MANUAL) 2 % (16-48); MONOCYTES % (MANUAL) 2 % (0-11.0); NEUTROPHILS % (MANUAL) 95 (42-76)
--- NOTE | 2017-08-24 06:30 | NUR ---
RN NOTES PT CONTINUE ON TRACH WITH VENT SETTING TOLERATED WELL. SUCTIONED WITH MODERATED AMT OF THICK YELLOWISH AND BROWN COLOR SECRETION. CONTINUE ON DIPRIVAN AT 30 MCG/KG/MIN. REMAINED CALM AND COOPERATIVE. ON LEVOPHED @ 10 MCG/MIN BP MAINTAINED AT BASELINE. IVF ONGOING AT 75 CC/HR ALL IV SITE REMAINED INTACT AND PATENT. CONTINUE WITH BEAR HUGGER. LOW OUTPUT FROM ZUÑIGA NOTED THROUGHOUT THE SHIFT. PT IS CLEANED AND DRY/ WILL ENDORSED CONTINUITY OF CARE TO AM NURSE AND TO FOLLOW UP CRITICAL LAB RESULT OF WBC 30.0 TO .
--- NOTE | 2017-08-24 07:37 | NUR ---
INITIAL TECHNICAL BUSINESS SYSTEMS ANALYST NOTE RCVD PT WITH EYES CLOSED, UNABLE TO FOLLOW COMMANDS. ST ON TELE. SATURATION >95% ON CURRENT SETTINGS. PEG PLACEMENT VERIFIED BY AUSCULTATION/ASPIRATION. AIR LEAKING HEARD THAT IS CONCURRENT WITH VENT. RT FABY AND YAJAIRA DANIELLE INFORMED. ZUÑIGA TO GRAVITY DRAINING CLOUDY, HENRY COLORED URINE. IV SITES C/D/I/PATENT. NO S/O INFILTRATION/PHLEBITIS OBSERVED IVF, PRESSORS AND DIPRIVAN INFUSING. WILL CONTINUE TO MONITOR PT FOR SAFETY AND COMFORT. BED IN LOW AND LOCKED POSITION.
--- NOTE | 2017-08-24 07:45 | NUR ---
RT PT RECEIVED TRACHED ON THE VENT WITH NOTED SETTINGS. PT IS AWAKE BUT DOES NOT FOLLOW COMMANDS. VENT ALARMS ARE SET AND AUDIBLE WITH BVM BY BEDSIDE. CHANNEL OPENER CUFF PRESSURE NOTED. VENT IS PLUGGED INTO RED OUTLET. WILL CONTINUE TO MONITOR. Addendum: 08/24/17 at 1845 by RAMIREZ CASTILLO RT Amended: Links added.
[2017-08-24] MEDS: HYDROCODONE/APAP 5/325MG 1 EACH TABLET GT SCH ×2 (09:00→16:13)
[2017-08-24] MEDS: FERROUS SULFATE UDC 300 MG/5 ML UDC GT SCH (09:00)
[2017-08-24] MEDS: ZINC SULFATE 220 MG CAPSULE GT SCH (09:00)
[2017-08-24] MEDS: MULTIVITAMINS,THERAGRAN 1 UDTAB TABLET GT SCH (09:00)
[2017-08-24] MEDS: PROSOURCE / PROSTAT (PYXIS) 30 ML UDC GT SCH ×2 (09:00→16:13)
[2017-08-24] MEDS: ACIDOPHILUS/BULGARICUS 1 EACH TAB.CHEW GT SCH (09:00)
[2017-08-24] MEDS: FAMOTIDINE (20 MG) 20 MG TABLET GT SCH ×2 (09:00→16:13)
[2017-08-24] MEDS: PANTOPRAZOLE 40 MG VIAL IV SCH ×2 (09:24→21:04)
[2017-08-24] MEDS: CADEXOMER IODINE 40 GM TUBE TP SCH ×2 (09:25→21:18)
[2017-08-24] MEDS: POLYVINYL ALCOHOL 15 ML BOTTLE EACHEYE SCH ×2 (09:25→16:12)
[2017-08-24 09:35] LABS: ABG BASE EXCESS -12.8 mmol/L; ABG OXYGEN SATURATION 83.9 % (92.0-98.5); ABG PCO2 66.8 mmHg (35.0-45.0); ABG PH 7.036 (7.350-7.450); ABG PO2 56.6 mmHg (75.0-100.0); AaDO2 589.6 mmHg; COHb 0.4 % (0.5-1.5); MetHb 0.9 % (0.0-1.5); O2Hb 82.8 % (94.0-97.0); PEEP,BG 15 cm H2O; SITE, ABG Right Radial; VT, ABG 350 mL
--- NOTE | 2017-08-24 09:40 | NUR ---
CLAIMS SPECIALIST NOTE DR. MATT IN UNIT INFORMED OF PT'S PEG LEAKING AIR SYNC WITH THE VENT RATE. HE RECOMMENDED TO PUT PT ON LOW INTERMITTENT SUCTION WHICH WAS STARTED NOW. WILL CONTINUE TO MONITOR.
[2017-08-24 11:37] LABS: OCCULT BLOOD STOOL POSITIVE (NEGATIVE)
--- NOTE | 2017-08-24 15:45 | NUR ---
PATIENT SBP DROPPED TO 40'S. TITRATED LEVOPHED UP TO MAX SUPPORT. DR. MATT MADE AWARE. NO 2ND PRESSOR AT THIS TIME. PATIENT ON HIGH VENT SETTINGS. PATIENT MOTHER CALLED BY [place]KE AND INFORMED OF PATIENT CONDITION.
[2017-08-24] MEDS: MICAFUNGIN SODIUM 100 MG in IV NS 0.9% 100 ML IV SCH (16:12)
--- NOTE | 2017-08-24 16:17 | NUR ---
CLERICAL ORDER FILLER NOTE PT'S SBP REMAINS LOW 50s AT THIS TIME MAXED OUT ON LEVO, DIPRIVAN OFF, BLE ELEVATED. DR. MATT AWARE, PT'S MOTHER AWARE. WILL CONTINUE TO MONITOR.
[2017-08-24] MEDS: NOREPINEPHRINE 16 MG in IV D5W 500 ML IV PRN (18:35)
--- NOTE | 2017-08-24 18:44 | NUR ---
GRADUATE NURSE NOTE PT'S REMAINS UNSTABLE, SBP RECOVERED AND PRESSORS ARE BEING TITRATED DOWN. ST ON TELE. SATURATION BELOW 90% ON CURRENT ORDERED SETTINGS. PEG REMAINS ON LOW INTERMITTENT SUCTION WITH GREEN GASTRIC CONTENT OBSERVED. IV SITES C/D/I/PATENT. WILL CONTINUE TO MONITOR PT FOR SAFETY AND COMFORT. BED IN LOW AND LOCKED POSITION. PT'S SISTER AT BEDSIDE. PT'S CARE WILL BE ENDORSED TO SALESPERSON ART OBJECTS RN FOR CONTINUITY OF CARE.
--- NOTE | 2017-08-24 20:00 | NUR ---
RN NOTES RECEIVED PT NOT IN STABLE CONDITION. BILATERAL BREATH SOUND CRACKLES AND RHONCHI SUCTIONED WITH SMALL TO MODERATE THICK WRIGHT SECRETION. WITH TRACH SHILEY 7 XLT CONNECTED TO VENT SETTING OF AC 30 TV 450 FIO2 100% PEEP 15 PT SATING 74 -80 %. WITH PRESSORS LEVO @ 22 MCG/MIN VS IN A DROP DOWN TO 49/[address] 100'S ON TELE MONITOR. GT IN LIS WITH DARK GREEN COLOR OUTPUT. IV SITE ON INGRID AND RIJ TLC WITH LEVOPHED AND D5W @ 75 CC/HR INTACT AND PATENT. BEAR HUGGER IN PLACED TEMP. 97.8 DEG F. F/C NO OUTPUT AT THIS TIME. PTS FAMILY AT BEDSIDE AND AWARE REGARDING PT STATUS. KEPT PT CLEAN AND COMFORTABLE IN BED. WILL MONITOR CLOSELY.
[2017-08-24] MEDS: COLISTIMETHATE SODIUM 100 MG in IV NS 0.9% 50 ML IV SCH (20:13)
[2017-08-24] MEDS: METRONIDAZOLE 500MG/ NS 100ML 500 MG in PREMIX 1 EA IV SCH (21:02)
[2017-08-24] MEDS: LINEZOLID RTU BAG 600 MG in PREMIX 1 EA IV SCH (21:02)
[2017-08-24] MEDS: DOCUSATE SODIUM LIQ 100 MG/10 ML UDC GT SCH (21:06)
[2017-08-24] MEDS: MORPHINE SULFATE INJ 4 MG/ML DISP.SYRIN IV PRN (21:22)
--- NOTE | 2017-08-24 21:54 | NUR ---
RN NOTES INFORMED DR. PEREZ REGARDING PT STATUS THAT PT VENT IS KEEP ALARMING DUE TO PT ARE TACHYPNEIC PROPOFOL WAS BEEN HELD DUE TO BP OF 50'S/30'S IN THE EVENING AND PT IS ON MAX LEVOPHED. PT SATURATION 70% DESPITE OF VENT SETTING FIO2 100%. AND DR. MATT DOESN'T WANT TO GIVE MORE PRESSORS. PER MD PT HAS LOW CHANCE OF MEANINGFUL RECOVERY. WITH ORDER FOR DR. PEREZ TO RE START PROPOFOL.
--- NOTE | 2017-08-24 22:23 | NUR ---
pt received on vent via charted settings and route. ambu bag at bedside alarms set and audible. disconnect alarms checked. vent plugged into red outlet. increased peak inspiratory pressures noted Addendum: 08/24/17 at 2224 by ARTEMIO FLORES RT Amended: Links added.
[2017-08-24 23:00] LABS: CREATININE, URINE 46.2 MG/DL (30.0-125.0)
[2017-08-25] VITALS (61 sets, daily range): BP systolic 44–131; BP diastolic 17–66
[2017-08-25] MEDS: PROPOFOL 100 ML IV PRN (00:50)
[2017-08-25] MEDS: ALBUTEROL FS 2.5 MG/3 ML VIAL.NEB NEB SCH ×2 (02:27→07:28)
[2017-08-25] MEDS: IPRATROPIUM NEB FS 0.5 MG/2.5 ML AMPUL.NEB IH SCH ×2 (02:28→07:28)
[2017-08-25] MEDS: NOREPINEPHRINE 16 MG in IV D5W 500 ML IV PRN ×2 (03:04→08:35)
--- NOTE | 2017-08-25 04:20 | NUR ---
RN NOTES BED BATH DONE TOLERATED WELL SATING REMAINED IN 70-80'S. TREATMENT DONE.
[2017-08-25 04:46] LABS: CALCIUM, SERUM 8.7 mg/dL (8.5-10.1); CREATININE 2.5 mg/dL (0.6-1.3); POTASSIUM 5.2 mmol/L (3.5-5.1)
[2017-08-25] MEDS: NYSTATIN TOP POWDER 15 GM BOTTLE TP SCH (05:09)
[2017-08-25] MEDS: METRONIDAZOLE 500MG/ NS 100ML 500 MG in PREMIX 1 EA IV SCH ×2 (05:11→13:15)
--- NOTE | 2017-08-25 06:25 | NUR ---
ICU/RN- SPOKE TO MOTHER(PHUONG) BY PHONE, SAME EXPRESSED DESIRE AND MADE A DECISION FOR TERMINAL EXTUBATION, COMFORT CARE. WANTS TO BE PRESENT DURING THE INITIATION OF COMFORT CARE. WILL BE HERE AT [address]. WILL NOTIFY DR[address] PEREZ REGARDING FAMILY DECISION.
--- NOTE | 2017-08-25 06:49 | NUR ---
RN NOTES DR. PEREZ RETURNED CALL INFORMED REGARDING THE FAMILY WISHES FOR COMFORT CARE, TERMINAL EXTUBATION AT 12NOON AND THE FAMILY WANTS TO BE PRESENT DURING INITIATION. PER MD TO ENDORSED TO NEXT SHIFT. PT IN UNSTABLE CONDITION. ANASARCA PRESENT, SATURATION AT THIS TIME WAS 78% DESPITE OF TRACH AND VENT SETTING. IV SITE INTACT AND PATENT, FLUSHED WELL. PRESSORS LEVOPHED @ 30 MCG/MIN HELPS LAST BP WAS 102/49 MMHG. HR 102 RESPIRATION AT 31. CONTINUE WITH DIPRIVAN @ 10 MCG/KG/MIN GT ON LIS WITH GREENISH BLACK COLOR OUTPUT. F/C WITH LOW OUTPUT. PT IS CLEANED AND DRY WILL ENDORSED CONTINUITY OF CARE TO AM NURSE.
[2017-08-25] MEDS: PROSOURCE / PROSTAT (PYXIS) 30 ML UDC GT SCH (08:21)
[2017-08-25] MEDS: HYDROCODONE/APAP 5/325MG 1 EACH TABLET GT SCH (08:21)
[2017-08-25] MEDS: FERROUS SULFATE UDC 300 MG/5 ML UDC GT SCH (08:21)
[2017-08-25] MEDS: ACIDOPHILUS/BULGARICUS 1 EACH TAB.CHEW GT SCH (08:21)
[2017-08-25] MEDS: FAMOTIDINE (20 MG) 20 MG TABLET GT SCH (08:21)
[2017-08-25] MEDS: MULTIVITAMINS,THERAGRAN 1 UDTAB TABLET GT SCH (08:22)
[2017-08-25] MEDS: ZINC SULFATE 220 MG CAPSULE GT SCH (08:23)
[2017-08-25] MEDS: POLYVINYL ALCOHOL 15 ML BOTTLE EACHEYE SCH (08:32)
[2017-08-25] MEDS: CADEXOMER IODINE 40 GM TUBE TP SCH (08:32)
[2017-08-25] MEDS: PANTOPRAZOLE 40 MG VIAL IV SCH (08:36)
[2017-08-25] MEDS: LINEZOLID RTU BAG 600 MG in PREMIX 1 EA IV SCH (08:36)
[2017-08-25 08:54] LABS: BASOPHILS # (AUTO) 0.1 /CMM (0.0-0.2); BASOPHILS % (AUTO) 0.4 % (0.0-2.0); EOSINOPHILS % (AUTO) 0.1 % (0.0-6.0); HEMATOCRIT 23 % (33-45); HEMOGLOBIN 7.7 g/dL (11.5-14.8); LYMPHOCYTES % (AUTO) 3.8 % (20.0-44.0); MEAN CORPUSCULAR HGB CONC 33 g/dl (31.0-36.0); MEAN CORPUSCULAR VOLUME 89 fL (82-100); MONOCYTES # (AUTO) 0.4 /CMM (0.1-1.30); MONOCYTES % (AUTO) 1.5 % (2.0-12.0); NEUTROPHILS # (AUTO) 24.4 /CMM (1.8-8.9); NEUTROPHILS % (AUTO) 94.2 % (43.0-81.0); PLATELET COUNT (AUTO) 364 /CMM (150-450); RDW COEFFICIENT OF VARIATION 18.8 (11.5-15.0); RED BLOOD CELL COUNT(AUTO) 2.62 MIL/uL (4.0-5.2); WHITE BLOOD COUNT (AUTO) 25.9 K/uL (4.3-11.0)
[2017-08-25] MEDS ORDERED: VANCOMYCIN 0.75 GM in IV D5W 250 ML IV SCH (09:00)
[2017-08-25] MEDS: COLISTIMETHATE SODIUM 100 MG in IV NS 0.9% 50 ML IV SCH (09:26)
--- NOTE | 2017-08-25 11:35 | NUR ---
CLINIC RECEPTIONIST NOTE 0720: Received patient obtunded, only responds to deep pain. With trache to vent, settings as ff: AC 30 450 100% +15, sat 78%. Noted with tracheal bleeding. GT to LIS, noted with minimal greenish residuals. With RIJ TLC intact, on Levo @ 30mcg, will titrate as ordered. On Diprivan @ 10mcg for ARDS, will keep on for comfort. D5W infusing as ordered. On isolation prec for wound Acinetobacter, maintained and observed.M Douglass cath intact, noted with very minimal baltazar colored urine drained to BSD. 0900: Spoke with Sinai mother via phone and informed me re: the plan of comfort care today, gave Dr. Tavera's number to discuss re: the POC. 1045: S/E by Dr. Tavera, said he spoke with mother, Sinai and agreed for comfort measures, informed MD awaiting for his orders. 1135: No any significant changes. Placed back on eliot hugger for 96.1.
[2017-08-25] MEDS ORDERED: FENTANYL CITRAT IV 2,500 MCG in IV NS 0.9% 200 ML IV PRN (13:30)
--- NOTE | 2017-08-25 13:34 | NUR ---
LION TAMER NOTE Dr. adamson in the unit, spoke with mother and other family members, discussed re: the comfort measures, with order to start Fentanyl drip then turn off vent in 30minutes and stop pressors.
--- NOTE | 2017-08-25 14:35 | NUR ---
RN NOTE PT DNR STATUS ON COMFORT CARE. FOUND PT APNEIC, ASYSTOLIC. PUPILS FIXED AND DILATED. PT PRONOUNCED . FAMILY AT BEDSIDE.
--- NOTE | 2017-08-25 15:14 | NUR ---
RN NOTE Patient at 1435, called [facility], Nurse sup, admitting, and MD. Family at bedside. Pronounced by CN. No more VS, Asystole on the monitor. Pupils are fixed dilated, no pulse, no heart beat. [facility] . Sinai, mother signed release of body. Spoke with [facility] [phone], may come in about 2 hours.
== END 2017-08-25 14:35 | disposition expired | DRG 130 ==
LOC: ER 15:20 → ICU 17:35
PROVIDERS: ADMIT Internal Medicine; ATTEND Internal Medicine
PROC: 05HM33Z Insertion of Infusion Device into Right Internal Jugular Vein, Percutaneous Approach (ICD-10-PCS; principal; 2017-08-16)
PROC: 5A1955Z Respiratory Ventilation, Greater than 96 Consecutive Hours (ICD-10-PCS; principal; 2017-08-16)
PROC: 30233N1 Transfusion of Nonautologous Red Blood Cells into Peripheral Vein, Percutaneous Approach (ICD-10-PCS; principal; 2017-08-16)
PROC: B543ZZA Ultrasonography of Right Jugular Veins, Guidance (ICD-10-PCS; principal; 2017-08-16)
PROC: 30233R1 Transfusion of Nonautologous Platelets into Peripheral Vein, Percutaneous Approach (ICD-10-PCS; 2017-08-19)
PROC: 0B21XFZ Change Tracheostomy Device in Trachea, External Approach (ICD-10-PCS; 2017-08-20)
DX: J95.851 Ventilator associated pneumonia (principal); K72.00 Acute and subacute hepatic failure without coma; I21.A1 Myocardial infarction type 2; D65 Disseminated intravascular coagulation [defibrination syndrome]; A41.9 Sepsis, unspecified organism; J96.21 Acute and chronic respiratory failure with hypoxia; N17.0 Acute kidney failure with tubular necrosis; G92 Toxic encephalopathy; E43 Unspecified severe protein-calorie malnutrition; Z51.5 Encounter for palliative care; Z66 Do not resuscitate; L89.893 Pressure ulcer of other site, stage 3; J90 Pleural effusion, not elsewhere classified; R65.21 Severe sepsis with septic shock; L89.894 Pressure ulcer of other site, stage 4; G93.1 Anoxic brain damage, not elsewhere classified; Z99.11 Dependence on respirator [ventilator] status; Z93.0 Tracheostomy status; D69.6 Thrombocytopenia, unspecified; Z93.1 Gastrostomy status; R53.2 Functional quadriplegia; B37.49 Other urogenital candidiasis; D64.9 Anemia, unspecified; E87.0 Hyperosmolality and hypernatremia; E83.39 Other disorders of phosphorus metabolism; L30.4 Erythema intertrigo; Z87.820 Personal history of traumatic brain injury; R13.10 Dysphagia, unspecified; E87.2 Acidosis; E88.09 Other disorders of plasma-protein metabolism, not elsewhere classified; M62.50 Muscle wasting and atrophy, not elsewhere classified, unspecified site; D68.59 Other primary thrombophilia; T68.XXXA Hypothermia, initial encounter; Y84.8 Other medical procedures as the cause of abnormal reaction of the patient, or of later complication, without mention of misadventure at the time of the procedure; Z86.718 Personal history of other venous thrombosis and embolism; K59.00 Constipation, unspecified; R74.0 Nonspecific elevation of levels of transaminase and lactic acid dehydrogenase [LDH]; L98.8 Other specified disorders of the skin and subcutaneous tissue; Y82.8 Other medical devices associated with adverse incidents; Y92.129 Unspecified place in nursing home as the place of occurrence of the external cause; S61.402A Unspecified open wound of left hand, initial encounter; S61.401A Unspecified open wound of right hand, initial encounter; M86.8X4 Other osteomyelitis, hand; J93.82 Other air leak; K64.9 Unspecified hemorrhoids; K57.91 Diverticulosis of intestine, part unspecified, without perforation or abscess with bleeding
CPT/HCPCS: 31720; 36415; 36600; 71045-TC; 74018; 80048-TC; 80076-TC; 80202-TC; 81000-TC; 82040-TC; 82272-TC; 82570-TC; 82803-TC; 83540-TC; 83605-TC; 83735-TC; 83880; 84100-TC; 84300-TC; 84484-TC; 85025-TC; 85027-TC; 85378-TC; 85385-TC; 85610-TC; 85730-TC; 86850-TC; 86921-TC; 87040-TC; 87070-TC; 87081-TC; 87086-TC; 87186-TC; 94002-TC; 94003-TC; 94640-TC; 94760-TC; 94762-TC; 99082-TC; A4216; A4606; A6248; A6253; A6402; A6403; A7526; C1751; C9113; J0692; J0770; J1450; J2020; J2185; J2248; J2270; J2543; J3010; J3370; J3480; J3490; J7030; J7050; J7060; J7070; P9016-BL; P9034-BL; Z7610